=== PATIENT | female | born 1975 | race Hispanic/Latino ===

== ENCOUNTER 2019-05-10 15:00 | Outpatient (RCR) | payer MEDICARE, MEDICAID, SELFPAY ==
[2019-05-10 15:07] VITALS: BMI 24.0
[2019-05-10 15:10] VITALS: BMI 24.0
== END 2019-07-26 23:59 | disposition home or self-care (01) ==
LOC: ANHDMC 15:00
PROVIDERS: PCP Internal Medicine; Visit Provider Internal Medicine
DX: E11.9 Type 2 diabetes mellitus without complications (principal); Z71.89 Other specified counseling; Z71.3 Dietary counseling and surveillance
CPT/HCPCS: 97802; G0108; G0109

== ENCOUNTER 2019-06-27 14:00 | Outpatient (RCR) | payer MEDICAID, SELFPAY | END 2019-06-27 23:59 | disposition home or self-care (01) | LOC: ANHAUDIO 14:00 | PROVIDERS: PCP Internal Medicine; Visit Provider Internal Medicine | DX: Z46.1 Encounter for fitting and adjustment of hearing aid (principal) | CPT/HCPCS: 99199; V5160; V5261 ==

== ENCOUNTER 2019-08-01 08:18 | Outpatient (CLI) | payer MEDICARE, SELFPAY ==
--- NOTE | ~2019-08-01 | XR_ITS ---
EXAMINATION: XR_ENEMABAC_CR DATE: 08/01/2019 09:26 INDICATION: Incomplete colonoscopy TECHNIQUE: A fundraising officer radiograph was obtained. A catheter was inserted into the patient's rectum. Contra st was infused by gravity. Gas was infused by hand pump. Fluoroscopic spot images and conventional ra diographs were obtained. A total of 54 fluoroscopic images and 14 overhead radiographs were obtained. Fluoroscopy exposure time was 1.8 minutes. COMPARISON: CT dated 05/11/2019 FINDINGS: Web Developer image demonstrates tubal ligation clips in the left and right hemipelvis. Contrast opacifies th e entire colon to the cecum with at least partial filling of the appendix. There is a small diverticu lum along the cephalad margin of the proximal transverse colon. There are a few mobile filling defect s which could represent residual stool in the colon. The 2 largest are seen most frequently adjacent to the diverticulum along the proximal transverse colon and in the proximal descending colon. No fill ing defects are seen at these locations on a few of the images and on all perspectives the filling de fects project within the normal peripheral opacified mucosal contours. Relation with prior CT perform ed 05/11/2019 demonstrate no evident nodules or masses at these locations. No defects along the mucos al contour to suggest an attached polyp or mass. IMPRESSION: 1. A few small filling defects in the transverse and proximal descending colon which appear mobile an d not attached to the colon wall suggesting small amount of retained stool. No fixed/attached filling defects appreciated. Reviewed, dictated and finalized at location A. RITY CONTROL ASSESSOR IMPRESSION: 1. A few small filling defects in the transverse and proximal descending colon which appear mobile and not attached to the colon wall suggesting small amount of retained stool. No fixed/attached filling defects appreciated.
== END 2019-08-01 08:19 | disposition home or self-care (01) ==
PROVIDERS: PCP Internal Medicine; Visit Provider Internal Medicine Gastroenterology
DX: R13.10 Dysphagia, unspecified (principal); R93.89 Abnormal findings on diagnostic imaging of other specified body structures
CPT/HCPCS: 74280

== ENCOUNTER 2020-01-03 06:33 | Outpatient (CLI) | payer MEDICARE, MEDICAID, SELFPAY ==
[2020-01-03 07:46] LABS: Alanine Aminotransferase 133 U/L (4-35); Albumin Level 4.2 g/dL (3.5-5.1); Alkaline Phosphatase 160 U/L (38-126); Aspartate Amino Transferase 92 U/L (14-36); Bilirubin,Total 0.8 mg/dL (0.2-1.3); Blood Urea Nitrogen 16 mg/dL (7-17); Calcium 8.9 mg/dL (8.4-10.2); Carbon Dioxide 24 mmol/L (22-30); Chloride 104 mmol/L (98-107); Estimated Glomerular Filt Rate > 60; Glucose 327 mg/dL (65-105); Potassium 4.5 mmol/L (3.4-5.0); Sodium 136 mmol/L (137-145)
[2020-01-03 07:52] LABS: Hemoglobin A1C 11.2 % (<5.7)
== END 2020-01-03 06:34 | disposition home or self-care (01) ==
PROVIDERS: PCP Internal Medicine; Visit Provider Nurse Practitioner
DX: E11.9 Type 2 diabetes mellitus without complications (principal); R74.0 Nonspecific elevation of levels of transaminase and lactic acid dehydrogenase [LDH]
CPT/HCPCS: 36415; 80053; 83036

== ENCOUNTER 2020-03-27 11:00 | Outpatient (RCR) | payer MEDICARE, MEDICAID, SELFPAY ==
[2020-03-08 08:01] VITALS: BMI 34.3
== END 2020-05-31 12:47 | disposition home or self-care (01) ==
LOC: ANHDMC 11:00
PROVIDERS: PCP Internal Medicine; Visit Provider Internal Medicine
DX: E11.65 Type 2 diabetes mellitus with hyperglycemia (principal); Z71.3 Dietary counseling and surveillance; Z71.89 Other specified counseling
CPT/HCPCS: 97802; G0108

== ENCOUNTER 2020-03-28 06:41 | Outpatient (CLI) | payer MEDICARE, MEDICAID, SELFPAY ==
[2020-03-28 08:27] LABS: Alanine Aminotransferase 179 U/L (4-35); Albumin Level 4.3 g/dL (3.5-5.1); Alkaline Phosphatase 88 U/L (38-126); Anion Gap 10 mmol/L (8-16); Aspartate Amino Transferase 110 U/L (14-36); Bilirubin,Total 0.8 mg/dL (0.2-1.3); Blood Urea Nitrogen 11 mg/dL (7-17); Carbon Dioxide 24 mmol/L (22-30); Chloride 105 mmol/L (98-107); Estimated Glomerular Filt Rate > 60; Glucose 162 mg/dL (65-105); Potassium 4.5 mmol/L (3.4-5.0); Sodium 139 mmol/L (137-145)
[2020-03-28 08:36] LABS: Hemoglobin A1C 7.7 % (<5.7)
== END 2020-03-28 06:42 | disposition home or self-care (01) ==
PROVIDERS: PCP Internal Medicine; Visit Provider Clinical Nurse Specialist
DX: R74.8 Abnormal levels of other serum enzymes (principal); E11.9 Type 2 diabetes mellitus without complications
CPT/HCPCS: 36415; 80053; 83036

== ENCOUNTER 2020-04-02 06:44 | Outpatient (CLI) | payer MEDICARE, MEDICAID, SELFPAY ==
[2020-04-02 07:57] LABS: Iron 95 ug/dL (37-170)
[2020-04-02 08:47] LABS: Hepatitis C Virus Antibody Negative (Negative)
[2020-04-06 21:24] LABS: Gliadin AB, IgG 4 Units (<20); Reticulin IgA Negative (Negative); TTG IGA AB 1 U/mL (<4)
== END 2020-04-02 06:45 | disposition home or self-care (01) ==
PROVIDERS: PCP Internal Medicine; Visit Provider Nurse Practitioner
DX: R74.8 Abnormal levels of other serum enzymes (principal)
CPT/HCPCS: 36415; 83516; 83540; 86255; 86803

== ENCOUNTER 2020-04-10 07:16 | Outpatient (CLI) | payer MEDICARE, MEDICAID, SELFPAY ==
--- NOTE | ~2020-04-10 | US_ITS ---
EXAMINATION: US right upper quadrant DATE: 04/10/2020 08:13 INDICATION: Right upper quadrant pain TECHNIQUE: Multiple grayscale and Doppler ultrasound images of the abdomen were obtained. COMPARISON: 10/09/2008; CT, 05/11/2019 FINDINGS: The head and and body of the pancreas are normal. The pancreatic tail is obscured by bowel gas. The liver demonstrates increased echogenicity, heterogenous echotexture, and decreased through t ransmission. No surface nodularity. Normal hepatopetal flow in the main portal vein. The gallbladder is normal with no abnormal wall thickening, pericholecystic fluid or stones. The normal common bile d uct measures 5 mm. There was no sonographic Maldonado sign. IMPRESSION: 1. Diffuse hepatic steatosis. Reviewed, dictated and finalized at location A.
== END 2020-04-10 07:17 | disposition home or self-care (01) ==
PROVIDERS: PCP Internal Medicine; Visit Provider Nurse Practitioner
DX: K76.0 Fatty (change of) liver, not elsewhere classified (principal)
CPT/HCPCS: 76705

== ENCOUNTER 2022-04-09 08:04 | Outpatient (RCR) | payer MEDICARE, MEDICAID, SELFPAY ==
[2022-04-09 08:30] VITALS: BP_SYST 60
--- NOTE | 2022-04-09 09:44 | PTOPEVAL1 ---
Assessment and note entered by David Mora, PT Evaluation Information Assessment Status Evaluation Diagnosis R shoulder pain Onset 2 1/2 months Subjective Information Patient reports that she woke up with the pain, upon questioning patient reports the day before the pain started she went on a 4 mile walk with daughter and granddaughter and during that time daughter and patient would swing the granddaughter using their arms. Reported Pain Level Pain Score 5: Self Report Assessment PT Clinical Summary Ainsley is a 46 year old female coming into the clinic with R shoulder pain, she reports it started 2 1/2 months ago, but does not recall a traumatic event. She just woke up and it was in pain. She later admitted that she walked 4 miles with daughter and granddaughter with time walking spent swing the granddaughter with daughter the day prior to pain starting. Patient has moderate pain easily exacerbated with special tests, range of motion or strength testing. Positive apprehension test, decreased range of motion, and strength. Unable to put on a bra and trouble putting on shirts. Patient guards and supports the R shoulder when not in use. Physical therapy may help patient with pain through modalities and manual therapy. Education on exercises should help improve strength and range of motion which would improve patient's ADL's abilities. Plan of Care Interventions Electrical Stimulation,Hot Pack/Cold Pack,Manual Therapy,Neuro Re-education,Patient/Caregiver Education,Therapeutic Activities,Therapeutic Exercise,Self-Care/Home Management,Ultrasound PT Services Indicated Yes Treatment Frequency and 1x/wk for 4 weeks Duration These treatments will address the objective and functional deficits as defined above. The patient will be advanced safely and appropriately in order for the patient to progress towards his/her prior level of function. Additional exercises will be introduced and as well as a comprehensive home exercise program upon discharge, if needed, ?to ensure carryover of functional gains achieved in the clinic. This treatment plan has been reviewed and agreement upon by the patient.
--- NOTE | 2022-04-15 08:36 | PCPTNOTE ---
Addendum entered by Dav Nunez, PT, DPT 04/15/22 08:37: Called and left voicemail to remind her of her upcoming appointment on 04/21/22 at 9:30am. Original Note: Patient did not show up for scheduled appointment this date.
--- NOTE | 2022-04-21 09:50 | PCPTNOTE ---
Patient did not show up for scheduled appointment this date. Called and left a voicemail.
--- NOTE | 2022-04-29 10:59 | PCPTNOTE ---
Admitting Provider: Attending Provider: Jacquelyn Syed NP Patient:Ainsley Waddell Date of :1975 Patient has not returned for any further treatments since 04/09/2022, therefore (he/she) will be discharged at this time. Patient?s initial visit was on 04/09/2022 08:30 and (he/she) had a total of ___1 visits. Called patient and she reports after talking to physical therapist and MD it was recommended to hold off on physical therapy until imaging could be done on her shoulder secondary to possible labral tear. The goals have been not met. Thank you for referring this patient to [facility]. Please review, sign, date and return this discharge summary JEAN-PAUL. I have been updated about the patient's current status and I agree with discharge from the above service at this time. Referring Physician Date
== END 2022-06-26 09:41 | disposition home or self-care (01) ==
LOC: ANHPT 08:04
PROVIDERS: PCP Internal Medicine; Visit Provider Nurse Practitioner
DX: M25.511 Pain in right shoulder (principal)
CPT/HCPCS: 97110; 97161; 99199

== ENCOUNTER 2023-04-25 15:32 | Emergency (ER) | payer MEDICARE, MEDICAID, SELFPAY ==
[2023-04-25] VITALS (12 sets, daily range): BP systolic 116–149; BP diastolic 75–84; PULSE 75–89; RESP 12–21; TEMP 36.3; O2SAT 95–100
--- NOTE | 2023-04-25 16:06 | ED.GENADULT ---
HPI - General Adult General Chief complaint: Unspecified Stated complaint: cant walk/ arm pain Time Seen by Provider: 04/25/23 15:59 History of Present Illness HPI narrative: Patient is a 47-year-old female who presents to the emergency department this afternoon complaining of bilateral upper and lower extremity neuropathy. Patient admits that she does have a history of diabetes and is currently on gabapentin 300 mg 3 times a day due to her peripheral neuropathy. Patient states that she is been on this medicine for the past 10 years and although initially it helped, it no longer helps with her pain. Patient states that she is scheduled for nerve testing but that is not for a few more weeks as that was the soonest her PCP could schedule her. Patient states that she has been taking her gabapentin and naproxen at home with no relief and is currently in tears due to her nerve pain. She is frustrated and states that she has tried everything with no relief and states that the pain has now caused her some chronic debility and she is unable to perform her activities of daily living. Patient denies any chest pain, shortness of breath, nausea, vomiting, abdominal pain, dysuria, hematuria, constipation, diarrhea, melena, hematochezia, fevers or chills. She also denies any headaches, dizziness, lightheadedness, blurry visions, focal weakness, numbness and or tingling. There are no other modifying, alleviating, or precipitating factors at this time. Related Data Home Medications Medication Instructions Recorded Confirmed lancets (Microlet Lancet) #50 ea 05/11/19 12/24/22 montelukast 10 mg tablet 10 mg PO DAILY 03/26/22 12/24/22 Allergies Allergy/AdvReac Type Severity Reaction Status Date / Time No Known Allergies Allergy Unknown Verified 04/25/23 15:55 Review of Systems Review of Systems: All systems are reviewed and are negative unless stated otherwise in the HPI. [facility] Past Medical History Medical History Abnormal mammogram Excessive daytime sleepiness Heartburn Hepatic steatosis HTN (hypertension) Leukocytosis Migraine headache Mixed hyperlipidemia Neuropathy Obesity COLETTE (obstructive sleep apnea) Rheumatoid arthritis Type 2 diabetes mellitus without complication, with group home current use of insulin pump Surgical History Surgical History History of tonsillectomy and adenoidectomy Family History Family History Mother Diabetes mellitus Social History Social History Smoking status: Current every day smoker Tobacco type: cigarettes Additional smoking assessment comments: stopped 05/2022, started again then stopped, smoke free 3 months 12/24/22 Alcohol intake: current Alcohol use details: occasionally Substance use: never Lack of Transportation: No Lack of Food: Never True Current Housing: I Have Housing Concerned About Future Housing: No Difficulty Paying Gas/Electric Bills: No Difficulty Paying for Meds: No Currently Unemployed: Decline to Answer Education: Decline to Answer Difficulty w/ Childcare or Family Care: No Spiritual care concerns: No Exam Narrative: General: Alert, awake, afebrile, in no acute distress. HEENT: PERRL, no rhinorrhea, no post nasal drip, oropharynx clear. Neck: Trachea midline, no JVD, no lymphadenopathy. Cardiovascular: Regular rate and rhythm, no murmurs, rubs or gallops, no peripheral edema. Respiratory: Clear to auscultation bilaterally, no tachypnea, no wheezing, no rhonchi, no rubs, no respiratory distress. Abdomen: Soft, nontender, nondistended, no rebound, no guarding, no peritoneal signs. Musculoskeletal: No joint swelling or deformity, normal muscle tone. Skin: No rashes or petechia, no signs of infection. Psychiatric: Alert an
[2023-04-25 16:20] LABS: Basophils Percent Auto 0.3 % (0.2-1.2); Eosinophils Absolute Auto 0.5 K/mm3 (0-0.3); Eosinophils Percent Auto 5.8 % (0-4.4); Hematocrit 38.8 % (37.0-47.0); Immature Granulocyte Absolute 0.02 K/mm3 (0.00-0.031); Immature Granulocyte Percent A 0.2 % (0-0.5); Mean Corpuscular HGB Conc 33.5 g/dl (32-36); Mean Corpuscular Hemoglobin 31.5 pg (26-34); Mean Corpuscular Volume 93.9 fl (80-100); Mean Platelet Volume 9.6 fl (7.4-10.4); Monocytes Absolute Auto 0.7 K/mm3 (0.1-0.6); Monocytes Percent Auto 7.9 % (2.6-8.5); Neutrophils Absolute Auto 4.2 K/mm3 (1.3-6.7); Neutrophils Percent Auto 48.8 % (45.5-73.1); Platelet Count Result 203 k/mm3 (150-375); Red Blood Count 4.13 M/mm3 (4.2-5.4); Red Cell Distribution Width 12.7 % (11.5-14.5); White Blood Count 8.7 K/mm3 (4.5-10.0)
[2023-04-25 16:29] LABS: Alanine Aminotransferase 39 U/L (6-35); Alkaline Phosphatase 131 U/L (38-126); Anion Gap 5 mmol/L (8-16); Aspartate Amino Transferase 32 U/L (14-36); Bilirubin,Total 0.6 mg/dL (0.2-1.3); Blood Urea Nitrogen 13 mg/dL (7-17); Calcium 8.8 mg/dL (8.4-10.2); Carbon Dioxide 24 mmol/L (22-30); Chloride 105 mmol/L (98-107); Estimated CRCL calculation 106 ml/min; Estimated Glomerular Filt Rate > 60; Glucose 292 mg/dL (65-110); Potassium 4.1 mmol/L (3.4-5.0); Sodium 134 mmol/L (137-145)
[2023-04-25] MEDS: HYDROcodone/acetaminophen (*CRX) 5-325 MG TABLET 1 TAB PO (17:07)
== END 2023-04-25 17:18 | disposition home or self-care (01) ==
PROVIDERS: Emergency Provider Emergency Medicine; PCP Internal Medicine
DX: E11.42 Type 2 diabetes mellitus with diabetic polyneuropathy (principal); E78.2 Mixed hyperlipidemia; I10 Essential (primary) hypertension; G47.33 Obstructive sleep apnea (adult) (pediatric); M06.9 Rheumatoid arthritis, unspecified; E66.9 Obesity, unspecified; Z68.32 Body mass index [BMI] 32.0-32.9, adult; R12 Heartburn; Z87.891 Personal history of nicotine dependence; Z79.85 Long-term (current) use of injectable non-insulin antidiabetic drugs; Z79.4 Long term (current) use of insulin
CPT/HCPCS: 36415; 80053; 85025; 99284; A9270

== ENCOUNTER 2023-05-04 11:38 | Outpatient (CLI) | payer MEDICARE, MEDICAID, SELFPAY ==
[2023-05-04 17:19] LABS: Basophils Percent Auto 0.3 % (0.2-1.2); Eosinophils Absolute Auto 0.4 K/mm3 (0-0.3); Eosinophils Percent Auto 4.1 % (0-4.4); Hematocrit 41.4 % (37.0-47.0); Hemoglobin 13.9 g/dL (12.0-15.0); Immature Granulocyte Absolute 0.02 K/mm3 (0.00-0.031); Immature Granulocyte Percent A 0.2 % (0-0.5); Lymphocytes Absolute Auto 3.42 K/mm3 (0.9-3.2); Lymphocytes Percent Auto 33.3 % (18.3-44.2); Mean Corpuscular HGB Conc 33.6 g/dl (32-36); Mean Corpuscular Hemoglobin 31.6 pg (26-34); Mean Corpuscular Volume 94.1 fl (80-100); Monocytes Absolute Auto 0.6 K/mm3 (0.1-0.6); Neutrophils Absolute Auto 5.8 K/mm3 (1.3-6.7); Neutrophils Percent Auto 56.1 % (45.5-73.1); Platelet Count Result 230 k/mm3 (150-375); Red Cell Distribution Width 12.2 % (11.5-14.5); White Blood Count 10.3 K/mm3 (4.5-10.0)
[2023-05-04 18:22] LABS: Erythrocyte Sedimentation Rate 21 mm/hr (0-20)
[2023-05-04 18:37] LABS: Alanine Aminotransferase 62 U/L (6-35); Albumin Level 4.4 g/dL (3.5-5.1); Alkaline Phosphatase 135 U/L (38-126); Anion Gap 13 mmol/L (8-16); Aspartate Amino Transferase 56 U/L (14-36); Bilirubin,Total 0.7 mg/dL (0.2-1.3); Blood Urea Nitrogen 14 mg/dL (7-17); Calcium 9.3 mg/dL (8.4-10.2); Carbon Dioxide 23 mmol/L (22-30); Chloride 103 mmol/L (98-107); Estimated Glomerular Filt Rate > 60; Glucose 167 mg/dL (65-110); Potassium 3.9 mmol/L (3.4-5.0); Sodium 139 mmol/L (137-145)
[2023-05-04 18:46] LABS: Rheumatoid Factor > 120.0 IU/ML (<12)
[2023-05-04 19:40] LABS: Folic Acid 4.7 ng/mL (2.76->20)
[2023-05-06 21:03] LABS: ANA Cascade Screen Negative (Negative)
== END 2023-05-04 11:39 | disposition home or self-care (01) ==
LOC: ANHGOSHLAB 11:41
PROVIDERS: PCP Internal Medicine; Visit Provider Nurse Practitioner
DX: G62.9 Polyneuropathy, unspecified (principal); E11.9 Type 2 diabetes mellitus without complications; M25.50 Pain in unspecified joint; Z96.41 Presence of insulin pump (external) (internal)
CPT/HCPCS: 36415; 80053; 82607; 82746; 84443; 85025; 85652; 86038; 86225; 86235; 86364; 86430

== ENCOUNTER 2023-10-08 07:45 | Outpatient (CLI) | payer MEDICARE, MEDICAID, SELFPAY ==
--- NOTE | 2023-10-08 08:06 | ECG_ITS ---
SEE SCANNED COPY FOR CONFIRMED REPORT MTDD
[2023-10-08 08:59] LABS: Anion Gap 10 mmol/L (4-12); Blood Urea Nitrogen 17 mg/dL (7-17); Calcium 9.6 mg/dL (8.4-10.2); Carbon Dioxide 21 mmol/L (22-30); Chloride 101 mmol/L (98-107); Estimated Glomerular Filt Rate > 60; Glucose 512 mg/dL (65-110); Potassium 4.4 mmol/L (3.4-5.0); Sodium 132 mmol/L (137-145)
== END 2023-10-08 07:46 | disposition home or self-care (01) ==
PROVIDERS: Anesthesiology; PCP Internal Medicine; Visit Provider Plastic Surgery
DX: E11.69 Type 2 diabetes mellitus with other specified complication (principal); E78.5 Hyperlipidemia, unspecified; Z96.41 Presence of insulin pump (external) (internal)
CPT/HCPCS: 36415; 80048; 93005

== ENCOUNTER 2023-10-09 09:20 | Outpatient (CLI) | payer MEDICARE, MEDICAID, SELFPAY ==
[2023-10-09 10:15] LABS: Glucose 166 mg/dL (65-110); Hemoglobin A1C 9.7 % (<5.7)
== END 2023-10-09 09:21 | disposition home or self-care (01) ==
PROVIDERS: PCP Internal Medicine; Visit Provider Physician Assistant Surgical
DX: E11.9 Type 2 diabetes mellitus without complications (principal); N62 Hypertrophy of breast; Z96.41 Presence of insulin pump (external) (internal)
CPT/HCPCS: 36415; 82947; 83036

== ENCOUNTER 2024-02-10 06:42 | Outpatient (CLI) | payer MEDICARE, MEDICAID, SELFPAY ==
[2024-02-10 07:52] LABS: Anion Gap 10 mmol/L (4-12); Blood Urea Nitrogen 14 mg/dL (7-17); Calcium 9.2 mg/dL (8.4-10.2); Carbon Dioxide 25 mmol/L (22-30); Chloride 102 mmol/L (98-107); Estimated Glomerular Filt Rate > 60; Glucose 135 mg/dL (65-110); Sodium 137 mmol/L (137-145)
== END 2024-02-10 06:43 | disposition home or self-care (01) ==
LOC: ANHLAB 06:44
PROVIDERS: PCP Internal Medicine; Visit Provider Anesthesiology
DX: E11.9 Type 2 diabetes mellitus without complications (principal); Z96.41 Presence of insulin pump (external) (internal)
CPT/HCPCS: 36415; 80048

== ENCOUNTER 2024-02-17 01:52 | Day surgery (SDC) | payer MEDICARE, MEDICAID, SELFPAY ==
[2023-10-06 12:07] VITALS: BMI 31.8
--- NOTE | 2023-10-06 12:15 | PC.NURSE ---
Addendum entered by Mary Blackwood RN 10/07/23 10:27: ALTERED PT COPY OF PREOP INSTRUCTIONS NOTIFYING THAT DEXCOM AND INSULIN PUMP SHOULD REMAIN IN PLACE. Addendum entered by Florinda Linton RN 10/06/23 12:21: PT INSTRUCTED SHE WILL BE REQUIRED TO REMOVE HER DEXCOM AND INSULIN PUMP THE MORNING OF SURGERY Original Note: Report to the Outpatient Waiting Room, entrance under the green pavilion located off [facility], at time _0600_ on date 10/15/23_. Planned Procedure Time: __0730_. Time changes happen often and if your time is changed the preop area will call you the afternoon before. - You and your visitor will be asked to self-screen and do not enter if you have any COVID symptoms. - A mask is optional within the hospital at this time. Patients may have clear liquids (water, carbonated beverages, clear teas, apple juice) until 8 hours prior to surgery with a maximum of 20 ounces. - No food from 1130PM until time of surgery - Infants may have breast milk until 4 hours before surgery, formula 6 hours prior to surgery. - Children will be allowed to drink immediately following surgery. If applicable, please bring a bottle or sippy cup to assist with drinking. Juice, water, soda, and popsicles are readily available. For infants on formula, please bring formula the day of surgery. Pacifiers are allowed. Take the following medications with a SIP of water the morning of surgery: ____CITALOPRAM/ PREGABALIN DO NOT STOP ANY OF YOUR OTHER PRESCRIPTION MEDICATIONS PRIOR TO SURGERY ?EXCEPT THE FOLLOWING Medications to discontinue per physician NONE Date to take last dose Please no make-up, nail armenian, hairspray, perfume, deodorant, or body powder the day of surgery. No jewelry (including any body piercings) or valuables the day of surgery, leave them at home. Please take a shower or bath the night before, or the morning of, surgery with an antibacterial soap. Wear comfortable, loose fitting clothing. Children are encouraged to wear pajamas. - Jewelry must be removed prior to entering the operating room. Rings and piercings that are not removed may be cut off. - The hospital will not accept responsibility for valuables. - Please leave all valuables, including medications, at home the day of surgery. If you are going home after surgery, a licensed concrete pile driver operator must drive you home. - NO public transportation without another adult if you receive anesthesia. - We recommend that an adult stay with you for 24 hours following discharge. - We also recommend that you do not drive, make important decision, drink alcoholic beverages, or take any drugs that were not prescribed by your health care provider for at least 24 hours after your discharge time. For Pediatric surgeries, we recommend two adults accompany the child home. Follow any additional instructions given to you from your surgeon. If you or anyone in your household have experienced Covid symptoms in the past week, please notify your surgeon or the nurse liaison at the phone number below for possible testing. Telephone instructions given to ___PATIENT__and asked if any additional questions and then verbalized understanding. Patient advised to call surgeon office or pre surgery nurse liaison [phone] if any additional questions.
[2024-02-09 10:23] VITALS: BMI 32.0
--- NOTE | 2024-02-09 10:31 | PC.NURSE ---
Addendum entered by Florinda Linton RN 02/09/24 10:43: PT INFORMED TO BE NPO FOR 8 HOURS PRIOR TO SURGERY Original Note: Report to the Outpatient Waiting Room, entrance under the [place] pavilion located off [facility], at time 0615_ on date 02/15/24. Planned Procedure Time: _08_. Time changes happen often and if your time is changed the preop area will call you the afternoon before. - You and your visitor will be asked to self-screen and do not enter if you have any COVID symptoms. - A mask is optional within the hospital at this time. Patients may have clear liquids (water, carbonated beverages, clear teas, apple juice) until 3 hours prior to surgery with a maximum of 20 ounces. - No food from midnight until time of surgery - Infants may have breast milk until 4 hours before surgery, formula 6 hours prior to surgery. - Children will be allowed to drink immediately following surgery. If applicable, please bring a bottle or sippy cup to assist with drinking. Juice, water, soda, and popsicles are readily available. For infants on formula, please bring formula the day of surgery. Pacifiers are allowed. Take the following medications with a SIP of water the morning of surgery: NONE DO NOT STOP ANY OF YOUR OTHER PRESCRIPTION MEDICATIONS PRIOR TO SURGERY ?EXCEPT THE FOLLOWING Medications to discontinue per physician PT HAS STOPPED HUMERIA /OZEMPIC DIRECTED BY . Date to take last dose Please no make-up, nail micronesian, hairspray, perfume, deodorant, or body powder the day of surgery. No jewelry (including any body piercings) or valuables the day of surgery, leave them at home. Please take a shower or bath the night before, or the morning of, surgery with an antibacterial soap. Wear comfortable, loose fitting clothing. Children are encouraged to wear pajamas. - Jewelry must be removed prior to entering the operating room. Rings and piercings that are not removed may be cut off. - The hospital will not accept responsibility for valuables. - Please leave all valuables, including medications, at home the day of surgery. If you are going home after surgery, a licensed oil transport driver must drive you home. - NO public transportation without another adult if you receive anesthesia. - We recommend that an adult stay with you for 24 hours following discharge. - We also recommend that you do not drive, make important decision, drink alcoholic beverages, or take any drugs that were not prescribed by your health care provider for at least 24 hours after your discharge time. For Pediatric surgeries, we recommend two adults accompany the child home. Follow any additional instructions given to you from your surgeon. If you or anyone in your household have experienced Covid symptoms in the past week, please notify your surgeon or the nurse liaison at the phone number below for possible testing. Telephone instructions given to and asked if any additional questions and then verbalized understanding. Patient advised to call surgeon office or pre surgery nurse liaison [phone] if any additional questions.
[2024-02-17] VITALS (8 sets, daily range): BP systolic 130–166; BP diastolic 55–99; PULSE 82–102; RESP 12–16; TEMP 36.7; O2SAT 95–98
[2024-02-17] MEDS: LACTATED RINGERS 1,000 ML 30 ML IV CONT ×2 (06:40→10:27)
--- NOTE | 2024-02-17 06:48 | P.HPUP_ITS ---
History and Physical Update Update Date/Time: 02/17/24 06:48 Patient seen and examined in pre-operative holding area. No interval change in medical history or symptoms. Patient remembers previous discussion of benefits and alternatives to procedure. Continues to desire to proceed with bilateral breast reduction. I reviewed the risks including but not limited to bleeding ,infection, asymmetry, undesireable cosmetic appearance, partial/total skin/nipple loss, no change or worsening of symptoms, change in sensation. I discussed the possible use of assistants and their level of participation in the case. Patient stated understanding and signed the consent form wishing to pr oceed
--- NOTE | 2024-02-17 06:49 | W.PM.PROC2 ---
Procedure Note - Detailed Date of Procedure 02/17/24 Pre-op Diagnosis hypertrophy of breasts Post-op Diagnosis Same Procedure Performed breast reduction Surgeon Mamadou Moffett MD Occupational Health Nurse abdirashid leigh pa-c Anesthesia General Description of Procedure Patient was seen in the preoperative holding area where the consent form was signed and breast were marked for inferior pedicle Barr pattern reduction. She was taken back to the operating room and placed on the table in the supine position. Time-out was performed with Anesthesia, surgeon, and staff agreeing on patient's name, site, and surgery to be performed. SCDs were placed the lower extremities and inflated. Antibiotics were given IV. After general anesthesia was administered the breasts were prepped and draped in the usual sterile fashion. I took my attention 1st to the right breast where I used a saline moistened lap pad and Jr clamp to create a breast tourniquet. 38 mm nipple Sizer was used to circumscribe the nipple-areolar complex and I proceeded with de epithelializing a 7 cm wide inferior pedicle. I made my other skin incisions and used Bovie cautery to elevate skin flaps and Crow's plane down to the chest wall exposing the entire breast. I proceeded with resection of 461 g of tissue from the right breast. I irrigated with normal saline. Hemostasis was good with Bovie cautery. I plicated the pedicle with 2-0 Vicryl suture. 2-0 Prolene was used to secure the T-junction. 3-0 Vicryl was used for dermal closure. The nipple was brought out 5 cm above the inframammary fold the most prominent portion of the breast at the breast midline and secured with 3-0 Vicryl suture. 4-0 Monocryl was used for subcuticular closure. I now took my attention to the left breast where a similar procedure was performed using the breast tourniquet 38 mm nipple Sizer and de epithelializing a 7 cm wide inferior pedicle. I made my other skin incisions and used Bovie cautery to elevate skin flaps and Crow's plane down to the chest wall. I proceeded with resecting 540 g of tissue from the left breast. This appeared to be reasonably symmetric to the reduced right side. Irrigated with normal saline. Hemostasis with Bovie cautery. I plicated the pedicle with 2-0 Vicryl suture. 2-0 Prolene was used to secure the T-junction. 3-0 Vicryl was used for dermis again the nipple was brought out 5 cm above the inframammary fold at the most prominent portion of breast at the breast midline and secured with 3-0 Vicryl suture. 4-0 Monocryl was used for subcuticular closure. There was good size, shape, and symmetry to the breast. The nipples appeared viable with good cap refill. The skin flaps appeared viable with good cap refill. I injected 20 cc of 1% lidocaine with epinephrine and 0.5% Marcaine plain along the inframammary fold and anterior axillary line of each breast. A dressing of Mastisol, Steri-Strips, 4x4s, ABDs and a breast binder was then applied. The patient was then awakened from anesthesia and transferred to the recovery room in stable condition. Complications: None Estimated blood loss: 30 cc Disposition: Patient tolerated the procedure well and will be going home later today. Abdirashid Leigh PA-C was essential for positioning, retraction, resection, closure and dressing placement [facility] [place] - Charge Forward: Surgery Billing ([id number] same for abdirashid leigh )
--- NOTE | 2024-02-17 08:07 | WPDANESEPPF ---
Anes - Initial Pre Proc Eval Procedure: Operation Date: 10/15/23 07:30 Proposed Procedures p Bilateral Breast Reduction - Mamadou Moffett MD Operation Date: 02/17/24 08:15 Proposed Procedures p Bilateral Breast Reduction - Mamadou Moffett MD Date/Time: 02/17/24 08:07 Surgeon: Mamadou Moffett MD Pre Op Diagnosis: hypertrophy of breasts Patient Data Age: 48 Gender: F Height: 1.68 m Weight: 92 kg Allergies Allergy/AdvReac Type Severity Reaction Status Date / Time No Known Allergies Allergy Unknown Verified 02/17/24 06:15 Home Medications Medication Instructions Recorded Confirmed Type lancets (Microlet Lancet) #50 ea 05/11/19 02/17/24 History lancets 33 gauge (TRUEplus Lancets) #100 ea 01/09/20 02/17/24 Rx semaglutide 1 mg/dose (2 mg/1.5 1 mg (0.75 mL) subcut WEEKLY #3 mL 04/02/20 02/17/24 Rx mL) subcutaneous pen injector (Ozempic) insulin aspart U-100 100 unit/mL See Rx Instructions continuous 06/04/20 02/17/24 Rx subcutaneous solution (Novolog subcutaneous infusion DAILY #20 mL U-100 Insulin aspart) montelukast 10 mg tablet 10 mg PO DAILY 03/26/22 02/17/24 History pregabalin 150 mg capsule (Lyrica) 150 mg PO BID #180 caps 09/22/23 02/17/24 Rx losartan 25 mg tablet 25 mg PO DAILY #90 tabs 10/15/23 02/17/24 Rx atorvastatin 80 mg tablet 80 mg PO DAILY #30 tabs 01/04/24 02/17/24 Rx adalimumab 40 mg/0.8 mL 40 mg subcut WEEKLY 02/02/24 02/17/24 History subcutaneous pen kit (Humira Pen) citalopram 20 mg tablet 20 mg PO DAILY #30 tabs 02/10/24 02/17/24 Rx famotidine 20 mg tablet (Acid 20 mg PO DAILY #30 tabs 02/10/24 02/17/24 Rx Complex Director (famotidine)) cephalexin 500 mg capsule 500 mg PO Q8H #21 caps 02/17/24 Rx hydrocodone 5 mg-acetaminophen 325 1 tablet PO Q6H PRN pain #12 tabs 02/17/24 Rx mg tablet Patient hx anesthesia problems: none Family hx anesthesia problems: none Results Review: All pre-operative results and documents have been reviewed as part of the pre-operative evaluation. [facility] Past Medical History Medical History Abnormal mammogram Excessive daytime sleepiness Heartburn Hepatic steatosis HTN (hypertension) Leukocytosis Migraine headache Mixed hyperlipidemia Neuropathy Obesity [place]TTE (obstructive sleep apnea) Rheumatoid arthritis Type 2 diabetes mellitus without complication, with senior living current use of insulin pump Surgical History Surgical History History of tonsillectomy and adenoidectomy Family History Family History Mother Diabetes mellitus Social History Social History Social History: Caffeine-daily Smoking packs per day: 0.25 Smoking cigarettes per day: 5.0 Years smoked: 34 Smoking pack-years: 8.50 Smoking status: Former smoker Tobacco type: e-cigarettes/vaping Additional smoking assessment comments: stopped 05/2022, started again then stopped, smoke free 3 months 12/24/22 Alcohol intake: current Alcohol use details: 2 PER YEAR Substance use: never Substance use type: does not use Do You Feel Safe in your Home?: Yes Lack of Transportation: No Lack of Food: Never True Current Housing: Decline to Answer Concerned About Future Housing: No Difficulty Paying Gas/Electric Bills: No Difficulty Paying for Meds: No Currently Unemployed: Decline to Answer Education: Master's Degree or Higher Difficulty w/ Childcare or Family Care: No Living arrangements: with family Spiritual care concerns: No Anes - Eval Final PreProcedure Day of Procedure 02/17/24 08:07 Patient weight: obese Heart: regular rate and rhythm Lungs: clear to auscultation Airway: Mallampati scale class II Neurological: alert and oriented Last oral intake: >/= 8 hours
[2024-02-17] MEDS: ceFAZolin 2 GM/D5W 50 ML 2 GM/50 ML BAG IVPB (08:25)
[2024-02-17] MEDS: LIDO 1%/EPINEPHRINE 1:100,000 20 ML VIAL 15 ML INFILTRATE (09:13)
[2024-02-17] MEDS: BUPivacaine HCL 0.5% PF 30 ML VIAL 15 ML INFILTRATE (09:13)
[2024-02-17 10:50] LABS: Glucose Point of Care 170 mg/dl (65-105)
[2024-02-17] MEDS: fentaNYL CITRATE INJ (*CRX) 100 MCG/2 ML VIAL 25 MCG IV PUSH ×4 (10:55→11:09)
[2024-02-17] MEDS: ONDANSETRON INJ 4 MG/2 ML VIAL IV PUSH (11:08)
[2024-02-17] MEDS: diphenhydrAMINE HCl INJ 50 MG/ML VIAL 12.5 MG IV PUSH (11:32)
[2024-02-17 11:37] LABS: BEDSIDEPREGUCG Negative
[2024-02-17] MEDS: oxyCODONE HCL (*CRX) 5 MG TAB IR PO (11:56)
== END 2024-02-17 12:47 | disposition home or self-care (01) ==
PROVIDERS: Physician Assistant Surgical; PCP Internal Medicine; Visit Provider Plastic Surgery
PROC: 0HBV0ZZ Excision of Bilateral Breast, Open Approach (ICD-10-PCS; CPT 19318; principal; 2024-02-17 08:15)
DX: N62 Hypertrophy of breast (principal); N64.89 Other specified disorders of breast; I10 Essential (primary) hypertension; E78.2 Mixed hyperlipidemia; E11.40 Type 2 diabetes mellitus with diabetic neuropathy, unspecified; M06.9 Rheumatoid arthritis, unspecified; G47.33 Obstructive sleep apnea (adult) (pediatric); K76.0 Fatty (change of) liver, not elsewhere classified; Z79.85 Long-term (current) use of injectable non-insulin antidiabetic drugs; Z79.4 Long term (current) use of insulin; Z79.620 Long term (current) use of immunosuppressive biologic; Z87.891 Personal history of nicotine dependence; E66.9 Obesity, unspecified; Z68.32 Body mass index [BMI] 32.0-32.9, adult
CPT/HCPCS: 19318; 82948; 88305; A9270; J0690; J1100; J1200; J2250; J2405; J2704; J3010; J7120

== ENCOUNTER → 2024-09-21 15:12 | Outpatient (REF) | payer MEDICARE, MEDICAID, SELFPAY | LOC: ANHLAB 15:12 | PROVIDERS: PCP Nurse Practitioner; Visit Provider Plastic Surgery | DX: N62 Hypertrophy of breast (principal) | CPT/HCPCS: 88305 ==

== ENCOUNTER 2024-11-16 08:55 | Outpatient (CLI) | payer MEDICARE, MEDICAID, SELFPAY ==
--- NOTE | ~2024-11-16 | XR_ITS ---
Left wrist Technique: PA, oblique, lateral, and ulnar deviation views were obtained. Clinical History: Lesion of ulnar nerve Findings: No acute fracture or dislocation is seen. Osseous alignment is anatomic. Joint spaces are p reserved. Soft tissues are unremarkable. Impression: No acute abnormality. Reviewed, dictated and finalized at location . Impression: No acute abnormality.
--- OUTSIDE RECORDS SUMMARY | 2024-11-16 09:01 | XMS_ITS | Referral Summary ---
Author Organization [facility] Address [address] [place] [address] Care Team Providers Care Professor Of Practice Name Role Phone Devin Arredondo DO Primary Care Provider [phone] Encounters Date Type Department Care Team Description 11/04/2024 11:40 AM CDT Lab [facility] Met[facility] Lipid [address] [place] [id number] High risk medication use; Rheumatoid arthritis involving multiple sites with positive rheumatoid factor (HCC) 11/04/2024 10:45 AM CDT Office Visit [facility] [address] [place] [id number] Thu Espino MD High risk medication use (Primary Dx); Rheumatoid arthritis involving multiple sites with positive rheumatoid factor (HCC) 09/06/2024 Telephone [facility] [address] [place] [address] [place] [address] Dung Rubi RN Prior Auth (Tresiba) 08/31/2024 Telephone [facility] [address] [place] [address] [place] [address] Marlen Machado CMA 08/31/2024 Telephone [facility] [address] [place] [address] [place] [address] Ana Iraheta RMA Fibroscan Appointment 08/31/2024 Results Follow-Up [facility] [address] [place] [address] [place] [address] Jessica Perez PA Albumin Creatinine Ratio, Urine, Hepatic function panel 08/31/2024 Telephone [facility] Met[facility] Lipid [address] [place] [address] [place] [address] Jessica Perez PA Lab Results 08/30/2024 9:20 AM CDT Lab [facility] ([facility]) [address] [place] [address] Type 2 diabetes mellitus with other specified complication, with long-term current use of insulin (HCC); Nonalcoholic fatty liver disease; Elevated liver function tests 08/30/2024 8:30 AM CDT Office Visit [facility] Lipid [address] [place] [address] [place] [address] Jessica Perez PA Type 2 diabetes mellitus with other specified complication, with long-term current use of insulin (HCC) (Primary Dx); Nonalcoholic fatty liver disease; Elevated liver function tests; Class 1 obesity due to excess calories with serious comorbidity and body mass index (BMI) of 32.0 to 32.9 in adult; Mixed hyperlipidemia; Sleep apnea, unspecified type; Elevated blood pressure reading; Vitamin D deficiency; Insulin pump titration from Last 3 Months Allergies No known active allergies Medications famotidine (PEPCID) 20 mg tablet 05/10/20 20 Active glucagon 1 mg injection INJECT 1 MG UNDER THE SKIN ONCE NEEDED. MAY REPEAT IN 15 MINS IF NEEDED WITH NEW DECIVE 07/03/19 21 Active montelukast (SINGULAIR) 10 mg tablet 06/06/20 21 Active sertraline (ZOLOFT) 25 mg tablet Take 1 tablet (25 mg total) by mouth daily 12/26/19 22 Active varenicline (CHANTIX) 1 mg tablet Take 1 tablet (1 mg total) by mouth 2 (two) times a day 03/13/20 22 Active citalopram (CeleXA) 20 mg tablet Take 1 tablet (20 mg total) by mouth daily 05/27/20 22 Active atorvastatin (LIPITOR) 80 mg tablet Take 1 tablet (80 mg total) by mouth daily 06/19/20 22 Active pregabalin (LYRICA) 150 mg capsule Take 1 capsule (150 mg total) by mouth 2 (two) times a day 06/10/20 23 Active pen needle, diabetic (BD Ultra-Fine Heather Pen Needle) 32 gauge x 5/32 needleIndication s:Type 2 diabetes mellitus with other specified complication, with long-term current use of insulin ([facility]) USE TO INJECT INSULIN 3 TIMES PER DAY. 200 each 3 10/28/19 24 Active losartan (COZAAR) 25 mg tablet TAKE 1 TABLET BY MOUTH EVERY DAY. PLEASE MAKE AN APPT FOR FURTHER REFILLS 90 tablet 1 01/11/20 24 Active glucagon (Gvoke HypoPen 1-Pack) 1 mg/0.2 mL auto-injectorInd ications:Type 2 diabetes mellitus with other specified complication, with long-term current use of insulin ([facility]) Use as directed for severe hypoglycemia 2 mL 2 06/02/20 24 Active bisacodyL 5 mg tabletIndication s:Constipation, unspecified constipation type Take 10 mg by mouth daily 10 tablet 06/02/20 24 Active upadacitinib 15 mg tablet extended release 24 hr Take 15 mg by mouth daily 30 tablet 11 06/13/20 24 025 Active tirzepatide (Mounjaro) 5 mg/0.5 mL pen injector injectionIndicat ions:Type 2 diabetes mellitus with other specified complication, with long-term current use of insulin ([facility]) Inject 0.5 mL (5 mg total) under the skin every 7 days 2 mL 3 08/31/19 25 Active insulin aspart (NovoLOG) 100 unit/mL vial for injectionIndicat ions:Type 2 diabetes mellitus with other specified complication, with long-term current use of insulin ([facility]) Use in insulin pump. Max daily dose 100 units. 90 mL 3 08/31/19 25 Active insulin degludec (TRESIBA) 100 unit/mL (3 mL) pen for injectionIndicat ions:Type 2 diabetes mellitus with other specified complication, with long-term current use of insulin ([facility]) INJECT 33 UNITS ONCE DAILY IN CASE OF PUMP FAILURE 15 mL 2 09/08/19 25 Active sulfaSALAzine (AZULFIDINE) 500 mg tabletIndication s:Rheumatoid arthritis involving multiple sites with positive rheumatoid factor (HCC) Take 3 tablets (1,500 mg total) by mouth 2 (two) times a day 360 tablet 11/05/19 25 025 Active meloxicam (MOBIC) 15 mg tabletIndication s:Polyarthritis TAKE 1 TABLET BY MOUTH DAILY WITH BREAKFAST. DO NOT TAKE WITH OTHER NSAIDS, CAN TAKE TYLENOL 30 tablet 1 02/04/20 24 025 Discontin ued(Thera py completed ) sulfaSALAzine (AZULFIDINE) 500 mg tabletIndication s:Rheumatoid arthritis involving multiple sites with positive rheumatoid factor (HCC) Take 2 tablets (1,000 mg total) by mouth 2 (two) times a day 360 tablet 10/04/19 25 025 Discontin ued(Reord er) Active Problems Problem Noted Date Diagnosed Date Elevated liver function tests 08/30/2024 Eye pain 08/30/2023 High risk medication use 08/30/2023 Seropositive erosive rheumatoid arthritis 2023 Polyarthritis 05/27/2023 Elevated rheumatoid factor 05/27/2023 Chills 05/27/2023 Hidradenitis suppurativa 05/27/2023 Nonalcoholic fatty liver disease 03/03/2022 Assessment & Plan (03/03/2022 9:38 AM CDT): Pt initially had elevated LFTs in 06/2020 with hepatocellular pattern. This was was likely indicative of PETERSON component. Now with improvement in her DM and also on simaglutide - her transaminases have normalized. Liver US 03/2021 - noted increased echogenicity. Plt normal. APRI normal 0.3. We discussed the cause of increased hepatic fat, i.e., inadequate metabolism of fat delivered to the liver. When associated with elevated transaminases, this is non-alcoholic steatohepatitis. This inflammation can lead to scar tissue or cirrhosis of the liver in approximately 30% of cases. Patients with cirrhosis are at risk for developing complications of portal hypertension, liver failure, , liver cancer, and/or the need for a liver transplant. Fat in the absence of elevated transaminases is non-alcoholic fatty liver disease. Routinely, this is not associated with inflammation or progressive hepatic fibrosis. The most effective treatment of fatty liver is weight loss, ideally achieved through a combination of caloric restriction and exercise. Aerobic exercise for 4 hours a week can accelerate fat metabolism and lead to improvement of liver tests. Weight loss of 5-10% of the current body weight usually leads to improvement in liver tests, liver inflammation, and a decrease in hepatic fibrosis. - Pt agreed with above and will try to lose weight. - PCP can follow labs in future, with next set of labs can perform Hep C/B screening. - For now will follow-up with us as needed Mixed hyperlipidemia 09/30/2021 Assessment & Plan (01/27/2023 12:25 PM CDT): -Last lipid panel: Total cholesterol 170 triglycerides 336, HDL 22, LDL 81 on 01/23/2023 (confirmed with patient that this was a fasting test) -Will continue same medical management of atorvastatin 80 mg daily -Discussed importance of improving glycemic control, making dietary modifications, and increasing activity Assessment & Plan (07/28/2022 9:22 AM ARRESTING GEAR OPERATOR): -Last labs dated 12/27/21 : TC 176 Trig 266 HDL 23 LDL 100 -Will continue same medical management Class 1 obesity due to exces s calories with serious comorbidity and body mass index (BMI) of 31.0 to 31.9 in adult 09/30/2021 Assessment & Plan (03/03/2022 9:39 AM CDT): Recommended weight loss above. Pt agreed. Neuropathy 06/11/2020 Sleep apnea 06/11/2020 Type 2 diabetes mellitus 06/11/2020 Assessment & Plan (01/27/2023 12:21 PM CDT): -Currently taking Ozempic and Metformin. She has been off of her pump due to malfunction, and has been taking only a few units of Lantus with meals -A1C on 01/27/23 was 7.6% -Dexcom download indicates variable pattern. She has been off pump x 2 weeks, and was also taking steroids during that time. She has only be taking a few units of Lantus with each meal while off pump. Her previous pump download was reviewed, and her total daily basal amount was 33 units. In review of her current Dexcom data, will change latnus to 20 units once a day. Lyumjev pen given to use for mealtime coverage at ICR of 1:10, correction of 1:25>150 mg/dl. She will resume her usual pump settings with Humalog when she receives her new pump. -Discussed diet and activity modifications. -Advised to call with any concerns/complaints regarding glucose readings -Eye exam is up to date Assessment & Plan (07/30/2022 1:47 PM ARRESTING GEAR OPERATOR): -Currently taking Ozempic and Metformin, using Tandem insulin pump with Dexcom -A1C on 07/30/22 was 6.5% -Dexcom download indicates relatively stable pattern with time in range of 91%. She has occasional excursions. For now, will continue same pump settings. -Discussed diet and activity modifications. -Advised to call with any concerns/complaints regarding glucose readings -Eye exam is up to date Immunizations Immunization Administration Dates Next Due Pfizer SARS-CoV-2 Monovalent Vaccination (12+ Yrs) PURPLE 09/17/2020 ZOSTER Recombinant 07/01/2024,04/15/2024 Social History Tobacco Use Types Packs/Day Years Used Date Smoking Tobacco: Former Cigarettes 0.3 20 Tobacco Cessation:Counseling Given: Not Answered AUDIT-C Answer Date Recorded Q1: How often do you have a drink containing alc ohol? Monthly or less 03/03/2022 Q2: How many drinks containi ng alcohol do you have on a typical day when you are drinking? 1 or 2 03/03/2022 Q3: How often do you have si x or more drinks on one occasion? Less than monthly 03/03/2022 Comments No Sex and Gender Information Value Date Recorded Sex Assigned at Not on file Legal Sex Female 8:30 PM ARRESTING GEAR OPERATOR Gender Identity Not on file Sexual Orientation Not on file Last Filed Vital Signs Vital Sign Reading Time Taken Comments Blood Pressure 136/83 08/30/2024 8:19 AM CDT Pulse 83 08/30/2024 8:19 AM CDT Temperature 36.8 C (98.3 F) 08/30/2024 8:19 AM CDT Respiratory Rate 18 07/01/2024 9:02 AM ARRESTING GEAR OPERATOR Oxygen Saturation 98% 07/01/2024 9:02 AM ARRESTING GEAR OPERATOR Inhaled Oxygen Concentration - - Weight 91.2 kg (201 lb) 08/30/2024 8:19 AM CDT Height 167.6 cm (5' 6) 08/30/2024 8:19 AM CDT Body Mass Index 32.44 08/30/2024 8:19 AM CDT Plan of Treatment Not on file Procedures Procedure Name Priority Date/Time Associated Diagnosis Comments CBC WITH AUTO DIFFERENTIAL Routine 11/04/2024 11:47 AM CDT High risk medication use COMPREHENSIVE METABOLIC PANEL Routine 11/04/2024 11:47 AM CDT High risk medication use CRP (ACUTE PHASE) Routine 11/04/2024 11: 47 AM CDT High risk medication use Rheumatoid arthritis involving multiple sites with positive rheumatoid factor (HCC) ERYTHROCYTE SEDIMENTATION RATE Routine 11/04/2024 11:47 AM CDT High risk medication use Rheumatoid arthritis involving multiple sites with positive rheumatoid factor (HCC) LIPID PANEL Routine 11/04/2024 11:47 AM CDT High risk medication use Rheumatoid arthritis involving multiple sites with positive rheumatoid factor (HCC) HEPATIC FUNCTION PANEL Routine 08/30/2024 9:13 AM CDT Type 2 diabetes mellitus with other specified complication, with long-term current use of insulin (HCC) Nonalcoholic fatty liver disease Elevated liver function tests ALBUMIN CREATININE RATIO, URINE Routine 08/30/2024 9:13 AM CDT Type 2 diabetes mellitus with other specified complication, with long-term current use of insulin (HCC) POCT GLUCOSE [id number] Routine 08/30/2024 8: 24 AM CDT Type 2 diabetes mellitus with other specified complication, with long-term current use of insulin (HCC) POCT HEMOGLOBIN A1C Routine 08/30/2024 8 :24 AM CDT Type 2 diabetes mellitus with other specified complication, with long-term current use of insulin (HCC) HEPATITIS PANEL, ACUTE Routine 06/11/2024 8:10 AM ARRESTING GEAR OPERATOR Elevated liver enzymes PAP AND HIGH RISK HPV, REFLEX TO GENOTYPING Routine 12/16/2021 9:34 AM CDT Well woman exam with routine gynecological exam from Last 3 Months or Most Recently Relevant to Health Maintenance Results * (ABNORMAL) CBC with auto differential (11/04/2024 11:47 AM CDT) White Blood Count 10.4 3.6 - 11.2 K/uL [facility] RBC 4.13 3.63 - 4.92 M/uL [facility] Hemoglobin 13.9 11.9 - 15.5 g/dL [facility] Hematocrit 40.9 36.1 - 44.3 % [facility] MCV 99.1(H) 80.0 - 97.6 fL [facility] MCH 33.6 26.7 - 33.7 pg [facility] MCHC 33.9 32.7 - 35.5 g/dL [facility] RBC Dist Width 13.5 12.3 - 17.0 % [facility] Platelet Count 271 140 - 440 K/uL [facility] MPV 8.2 6.8 - 10.4 fL [facility] Neutrophils % 52.4 38.7 - 74.5 % [facility] Lymphocyte % 35.3 20.0 - 54.3 % [facility] Monocytes % 7.2 4.3 - 13.5 % [facility] Eosinophils % 4.8 0.0 - 6.0 % [facility] Basophil % 0.3 0.0 - 3.0 % [facility] Absolute Neutrophil 5.5 1.8 - 6.6 K/uL [facility] Absolute Lymphocyte 3.7(H) 0.8 - 3.3 K/uL [facility] Absolute Monocyte 0.7 0.2 - 1.2 K/uL [facility] Absolute Eosinophil 0.5 0.0 - 0.5 K/uL [facility] Absolute Basophil 0.0 0.0 - 0.2 K/uL [facility] Nucleated RBC % 0.1 0.0 - 0.4 /100 WBC [facility] Blood 11/04/2024 11:4 7 AM CDT 11/04/2024 12:46 PM CDT us Thu Espino MD LAB BLOOD ORDERABLES Final Resul t Performing Organization Address [facility] de Phone Number [facility] * (ABNORMAL) Erythrocyte sedimentation rate (11/04/2024 11:47 AM CDT) Erythrocyte Sedimentation Rate 33(H) <30 mm/hr [facility] Blood 11/04/2024 11:4 7 AM CDT 11/04/2024 12:46 PM CDT us Thu Espino MD LAB BLOOD ORDERABLES Final Resul t Performing Organization Address [facility] de Phone Number [facility] * CRP (acute phase) (11/04/2024 11:47 AM CDT) C-Reactive Protein, Acute <3.0 <5.0 mg/L [facility] Blood 11/04/2024 11:4 7 AM CDT 11/04/2024 12:46 PM CDT us Thu Espino MD LAB BLOOD ORDERABLES Final Resul t Performing Organization Address [facility] de Phone Number [facility] * (ABNORMAL) Lipid panel (11/04/2024 11:47 AM CDT) Triglycerides 177(H) <150 mg/dL [facility] Comment: Persistently elevated triglycerides may enhance atherosclerotic cardiovascular disease. Desirable: <150 mg/dL, fasting <175 mg/dL, non-fasting Total Cholesterol 233(H) <200 mg/dL [facility] Comment:Repeated and Verifie d Total HDL-C Direct 38(L) >50 mg/dL [facility] Comment: A low HDL-C may be indicative of metabolic syndrome and enhance atherosclerotic cardiovascular disease risk. Non-HDL cholesterol 195 <220 mg/dL [facility] Calculated LDL Chol 163 <190 mg/dL [facility] Comment: Consider the use of non-HDL-C or Apo B to help estimate atherosclerotic cardiovascular diesase risk if triglycerides are elevated. Blood 11/04/2024 11:4 7 AM CDT 11/04/2024 12:46 PM CDT Narrative [facility] - 11/04/2024 2:24 PM CDT Beginning October 19, 2024, LDL are now calculated by the Cullen-NIH equation (KEILA Cardiol 2020;5:540-8) which is more accuarate than the older Friedewald equation in patients with low LDL cholesterol or high triglycerides. For adults ages 40-79, the ACC/AHA recommends discussing your 10-year atherosclerotic cardiovascular disease risk with your health care provider. https://www.acc.org/ASCVDApp us Thu Espino MD LAB BLOOD ORDERABLES Final Resul t [facility] * (ABNORMAL) Comprehensive metabolic panel (11/04/2024 11:47 AM CDT) Total Protein 8.1 6.1 - 8.4 g/dL [facility] Albumin 4.3 3.5 - 5.2 g/dL [facility] Calcium 9.9 8.6 - 10.3 mg/dL [facility] BUN 13 7 - 23 mg/dL [facility] Total Bilirubin 0.50 0.20 - 1.40 mg/dL [facility] Alk Phos, Total 103 35 - 129 IU/L [facility] AST (SGOT) 58(H) 11 - 47 IU/L [facility] ALT (SGPT) 82(H) 6 - 53 IU/L [facility] Creatinine 0.77 0.60 - 1.10 mg/dL [facility] Sodium 138 135 - 145 mmol/L [facility] Potassium 4.2 3.3 - 5.1 mmol/L [facility] Chloride 107 95 - 107 mmol/L [facility] CO2 Content 22 21 - 29 mmol/L [facility] Glucose 155(H) 64 - 99 mg/dL [facility] Comment: NONFASTING GLUCOSE RANGE = 64-199 mg/dL FASTING GLUCOSE 64 - 99 = NORMAL FASTING GLUCOSE 100 - 125 = IMPAIRED FASTING GLUCOSE FASTING GLUCOSE >=126 = PROVISIONAL DIAGNOSIS OF DIABETES eGFR >90.0 >60.0 mL/min/1.7 3 m2 [facility] Blood 11/04/2024 11:4 7 AM CDT 11/04/2024 12:46 PM CDT Thu Espino MD LAB BLOOD ORDERABLES Final Resul t Performing Organization Address City/[facility] Co de Phone Number [facility] * Albumin Creatinine Ratio, Urine (08/30/2024 9:13 AM CDT) Albumin Ur 13.5 mg/L Comment: Interpretive Data No reference range established. Current interpretive data was last revised 2018. Creatinine Ur 117.6 mg/dL [facility] Comment: Interpretive Data No reference range established. Current interpretive data was last revised 2018. Albumin Creatinine Ratio, Ur 11 1 - 29 mg/g [facility] Urine 08/30/2024 9:13 AM CDT 08/30/2024 9:45 AM CDT Result [facility] Jessica FELIZ LAB URINE ORDERABLES Franny l Result Performing Organization Address City/[facility]/ZIP Co de Phone Number [facility] Department [place] [address] * (ABNORMAL) Hepatic function panel (08/30/2024 9:13 AM CDT) Bilirubin, total 0.4 0.1 - 1.2 mg/dL Bilirubin, direct <0.2 0.1 - 0.3 mg/dL [facility] Protein, pl 8.0 6.5 - 8.5 g/dL [facility] Albumin 4.5 3.5 - 5.0 g/dL [facility] Alk phos 88 40 - 130 Units/L [facility] ALT 57(H) 7 - 45 Units/L [facility] AST 52(H) 10 - 45 Units/L [facility] Blood 08/30/2024 9:13 AM CDT 08/30/2024 9:45 AM CDT Jessica FELIZ LAB BLOOD ORDERABLES Franny l Result [facility] [place] [address] * POCT glucose (08/30/2024 8:24 AM CDT) Pathologist [facility] Glucose Blood, POC 143 mg/dL Comment:Finger stick Blood 08/30/2024 8:24 AM CDT Jessica FELIZ POINT OF CARE TEST ORDERA BLES Final Result * POCT hemoglobin A1c (08/30/2024 8:24 AM CDT) Pathologist [facility] Hemoglobin A1C, POC 7.7 4.0 - 5.6 % Blood 08/30/2024 8:24 AM CDT Jessica FELIZ POINT OF CARE TEST ORDERA BLES Final Result * Hepatitis panel, acute Blood (06/11/2024 8:10 AM ARRESTING GEAR OPERATOR) Pathologist [facility] Hep A IgM Nonreactive Nonreactive Hep B core IgM Nonreactive Nonreactive [facility] Hep C Ab Nonreactive Nonreactive [facility] Comment:Antibodies to HCV no t detected. Does NOT exclude the possibility of recent exposure to HCV. Current interpretive data was last revised on 22 HepBsAg Nonreactive Nonreactive [facility] Blood 06/11/2024 8:10 AM ARRESTING GEAR OPERATOR 06/11/2024 8:36 AM ARRESTING GEAR OPERATOR us Thu Espino MD LAB MICROBIOLOGY - GENERAL ORDER NINO Final Result CHUYITA SMITH [facility] [place] [address] * Pap and High Risk HPV, reflex to Genotyping (12/16/2021 9:34 AM CDT) Thin prep (Pap test) 12/16/2021 9:34 AM CDT 12/17/2021 9:34 AM CDT Narrative PATHOLOGY [facility] - 12/19/2021 9:[address] [facility] Department of Pathology [address] [place] [id number] Final Report with Addendum Note to Patients: This report may contain a detailed description of human tissue sent by a health care provider to the laboratory for pathologic evaluation. The content of this report is essential for diagnosis and may provide important critical findings. This information may be unfamiliar to patients to review without a medical professional present. It is advised that the patient review this report in the presence of a health care provider who can answer questions and explain the details. Patient Name: SOPHIE ROJAS Address: [address] [place] [address] Gender: F : 1975 (Age: 46) Service: Laboratory Location: N : [id number] [facility] #: [id number] Patient Type: [facility] SPECIMEN Taken: 12/16/2021 Received: 12/17/2021 Accessioned:: 12/18/2021 Reported: 12/19/2021 Physician(s): Hilda Reveles M.D. [facility] Diagnosis: Source of Specimen: SCREENING THIN PREP IMAGED PAP w/ HPV Specimen Adequacy: - Satisfactory for evaluation; endocervical/transformation zone component present General Category: - Negative for intraepithelial lesion or malignancy VICTOR M Curry(ASCP) Report Electronically Reviewed and Signed Out By VICTOR M Curry(ASCP) 12/19/2021 09:55:48Addenda: HPV Test Interpretation NEGATIVE for types 16, 18, 31, 33, 35, 39, 45, 51, 52, 56, 58, 59, 66 and 68. Test performed utilizing Gen-Probe Aptima assay. VICTOR M Cotter(ASCP)Report Electronically Reviewed and Signed Out By VICTOR M Cotter(ASCP) 12/18/2021 16:34:03 Specimen(s) Received: A: SCREENING THIN PREP IMAGED PAP w/ HPV Clinical History: The Pap test is a screening test used to aid in the detection of cervical cancer and its precursors. It should not be the sole means by which malignant and premalignant lesions are diagnosed. Both false negative and false positive results may occur. It also has poor sensitivity for the detection of endometrial lesions and should not be used to evaluate suspected endometrial abnormalities. For these reasons it is most important to obtain Pap tests at regular intervals. The performance characteristics of some immunohistochemical stains, fluorescence in-situ hybridization tests and immunophenotyping by flow cytometry cited in this report (if any) were determined by the Surgical Pathology Department at [facility] as part of an ongoing quality control program and in compliance with federally mandated regulations drawn from the Clinical Laboratory Improvement Act of 1988 (CLIA '88). Some of these tests rely on the use of analyte specific reagents and are subject to specific labeling requirements by the US Food and Drug Administration. Such diagnostic tests may only be performed in a facility that is certified by the Department of Health and Human Services as a high complexity laboratory under CLIA '88. The FDA has determined that such clearance or approval is not necessary. This test is used for clinical purposes. It should not be regarded as investigational or for research. Nevertheless, federal rules concerning the medical use of analyte specific reagents require that the following disclaimer be attached to the report: This test was developed and its performance characteristics determined by the Surgical Pathology Department [facility]. It has not been cleared or approved by the U. S. Food and Drug Administration. Hilda Reveles MD LAB CYTOLOGY ORDERABLES Final Re sult PATHOLOGY [facility] from Last 3 Months or Most Recently Relevant to Health Maintenance Insurance MEDICARE [facility] Address: [address] [place] [phone] IDPA [facility] MEDICARE MEDICARE IDPA Care Teams Professor Of Practice Relationship Specialty Start Date End Date Devin Arredondo DO PCP - General Internal Medicine 05/09/20
--- OUTSIDE RECORDS SUMMARY | 2024-11-16 09:01 | XMS_ITS | Encounter Summary ---
Author Organization [facility] Address [address] [place] [address] Phone Care Team Providers Care Academic Adviser Name Role Phone Devin Arredondo DO Primary Care Provider +1- [phone] Encounter Details Date Type Department Care Team (Latest Contact Info) Description 04/02/2020 Orders Only LOU IM EML Scanning, Provider Social History Tobacco Use Types Packs/Day Years Used Date Smoking Tobacco: Never Assessed Comments Unknown Sex and Gender Information Value Date Recorded Sex Assigned at Not on file Legal Sex Female 8:30 PM 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
--- OUTSIDE RECORDS SUMMARY | 2024-11-16 09:01 | XMS_ITS | Encounter Summary ---
Author Organization [facility] Address [address] [place] [address] Phone Care Team Providers Care Programmer Analyst Name Role Phone Devin Arredondo DO Primary Care Provider +1- [phone] Encounter Details Date Type Department Care Team (Latest Contact Info) Description 04/10/2020 Orders Only LOU IM EML Scanning, Provider Social History Tobacco Use Types Packs/Day Years Used Date Smoking Tobacco: Never Assessed Comments Unknown Sex and Gender Information Value Date Recorded Sex Assigned at Not on file 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 Gender Identity Not on file Sexual Orientation Not on file documented as of this encounter Plan of Treatment Not on file documented as of this encounter Procedures Procedure Name Priority Date/Time Associated Diagnosis Comments SCAN - RADIOLOGY/IMAGING 04/10/2020 documented in this encounter Results * SCAN - RADIOLOGY/IMAGING (04/10/2020) Anatomical Region Laterality Modality Other us Provider Scanning Final Result documented in this encounter Visit Diagnoses Not on filedocumented in this encounter Care Teams Programmer Analyst Relationship Specialty Start Date End Date Devin Arredondo DO PCP - General Internal Medicine 05/09/20 documented as of this encounter
--- OUTSIDE RECORDS SUMMARY | 2024-11-16 09:01 | XMS_ITS | Clinical Summary ---
Author Organization [facility] Address [address] [place] [address] Care Team Providers Care Airframe Technician Name Role Phone Devin Arredondo DO Primary Care Provider +1- [phone] Allergies No known active allergies Medications famotidine [...] with long-term current use of insulin (HCC) USE TO INJECT INSULIN 3 TIMES PER DAY. 200 each 3 10/28/19 24 Active losartan (COZAAR) 25 mg tablet TAKE 1 TABLET BY MOUTH EVERY DAY. PLEASE MAKE AN APPT FOR FURTHER REFILLS 90 tablet 1 01/11/20 24 Active glucagon (Gvoke HypoPen 1-Pack) 1 mg/0.2 mL auto-injectorInd ications:Type 2 diabetes mellitus with other specified complication, with long-term current use of insulin ([facility]) Use as directed for severe hypoglycemia 2 [...] with long-term current use of insulin ([facility]) Inject 0.5 mL (5 mg total) under the skin every 7 days 2 mL 3 08/31/19 25 Active insulin aspart (NovoLOG) 100 unit/mL vial for injectionIndicat ions:Type 2 diabetes mellitus with other specified complication, with long-term current use of insulin ([facility]) Use in insulin pump. Max daily dose 100 units. 90 mL 3 08/31/19 25 Active insulin degludec (TRESIBA) 100 unit/mL (3 mL) pen for injectionIndicat ions:Type 2 diabetes mellitus with other specified complication, with long-term current use of insulin ([facility]) INJECT 33 UNITS ONCE DAILY IN CASE [...] activity Assessment & Plan (07/28/2022 9:22 AM FINANCIAL SERVICE REPRESENTATIVE): -Last labs dated 12/27/21 : TC 176 [...] date Assessment & Plan (07/30/2022 1:47 PM FINANCIAL SERVICE REPRESENTATIVE): -Currently taking Ozempic and Metformin, using Tandem insulin pump with Dexcom -A1C on 07/30/22 was 6.5% -Dexcom download indicates relatively stable pattern with time in range of 91%. She has occasional excursions. For now, will continue same pump settings. -Discussed diet and activity modifications. -Advised to call with any concerns/complaints regarding glucose readings -Eye exam is up to date Encounters Date Type Department Care Team Description 11/04/2024 11:40 AM CDT Lab [facility] Endocrinology Metabolism and Lipid [address] [facility] 5th [place] [address] [place] [address] High risk medication use; Rheumatoid arthritis involving multiple sites with positive rheumatoid factor (HCC) 11/04/2024 10:45 AM CDT Office Visit [facility] Rheumatology [address] [place] [address] [place] [address] Thu Espino MD High risk medication use (Primary Dx); Rheumatoid arthritis involving multiple sites with positive rheumatoid factor (HCC) 09/06/2024 Telephone [facility] Endocrinology Metabolism and Lipid [address] [place] [address] Dung Rubi, JESSICA Prior Auth (Tresiba) 08/31/2024 Telephone [facility] Gastroenterology [address] [place] [address] [place] [address] Marlen Machado CMA 08/31/2024 Telephone [facility] Endocrinology Metabolism and Lipid [address] [facility] 13 [place] [address] [place] [address] Ana Iraheta RMA Fibroscan Appointment 08/31/2024 Results Follow-Up [facility] Endocrinology Metabolism and Lipid [address] [place] [address] [place] [address] Jessica Perez PA Albumin Creatinine Ratio, Urine, Hepatic function panel 08/31/2024 Telephone [facility] Endocrinology Metabolism and Lipid [address] [facility] 13th [place] [address] [place] [address] Jessica Perez PA Lab Results 08/30/2024 9:20 AM CDT Lab [facility] ([facility]) [address] [place] [address] Type 2 diabetes mellitus with other specified complication, with long-term current use of insulin (HCC); Nonalcoholic fatty liver disease; Elevated liver function tests 08/30/2024 8:30 AM CDT Office Visit [facility] Endocrinology Metabolism and Lipid [address] [facility] 13th [place] [address] [place] [address] Jessica Perez PA Type 2 diabetes mellitus [...] Insulin pump titration from Last 3 Months Immunizations Immunization Administration Dates Next Due Pfizer SARS-CoV-2 Monovalent Vaccination (12+ Yrs) PURPLE 09/17/2020 ZOSTER Recombinant 07/01/2024,04/15/2024 Surgical History Surgery Date Site/Laterality Comments HYSTEROSCOPY Medical History Medical History Date Comments Diabetes (HCC) Obesity Family History Medical History Relation Name Comments No Known Problems Father No Known Problems Mother Relation Name Status Comments Father Mother Social History Tobacco Use Types Packs/Day Years [...] on file Legal Sex Female 8:30 PM FINANCIAL SERVICE REPRESENTATIVE Gender Identity Not on file Sexual Orientation Not on file Obstetrics History Para Term AB IAB SAB Ectopic Multiple Livin g Live Births 3 3 Date Outcome GA Total Labor Labor/2nd/3rd Weight Sex Type Anes PTL Valarie A1 A5 Name Clin Para Para Para Last Filed Vital Signs Vital Sign Reading Time Taken Comments Blood Pressure 136/83 08/30/2024 8:19 AM CDT Pulse 83 08/30/2024 8:19 AM CDT Temperature 36.8 C (98.3 F) 08/30/2024 8:19 AM CDT Respiratory Rate 18 07/01/2024 9:02 AM FINANCIAL SERVICE REPRESENTATIVE Oxygen Saturation 98% 07/01/2024 9:02 AM FINANCIAL SERVICE REPRESENTATIVE Inhaled Oxygen Concentration - - Weight 91.2 kg (201 lb) 08/30/2024 8:19 AM CDT Height 167.6 cm (5' 6) 08/30/2024 8:19 AM CDT Body Mass Index 32.44 08/30/2024 8:19 AM CDT Plan of Treatment Health Maintenance Due Date Last Done Comments Breast Cancer Screening-Mammogram 1975 Colon Cancer Screening-Colonoscopy 1975 Depression Screening 1975 Dilated Eye Exam 1975 Foot Exam 1975 DTaP/Tdap/Td Vaccine (1 - Tdap) 1984 Pneumococcal vaccine <65 (1 of 2 - PCV) 1992 Cervical Cancer Screening 12/16/2022 12/16/2021 Regular Well Visit/Exam 18-64 12/16/2022 12/16/2021 Covid-19 Vaccine (2 - 2023-2 5 season) 2024 09/17/2020 Influenza Vaccine (Season Ended) 2025 Hemoglobin A1C 03/02/2025 08/30/2024, 05/22, 12/08/2023, Additional history exists Albumin Creatinine Ratio, Urine 08/30/2025 08/30/2024, 01/23/2023, 06/05/2021, Additional history exists Lipid Panel 11/04/2025 11/04/2024, 05/23, 04/15/2024, Additional history exists eGFR 11/04/2025 11/04/2024, 05/23, 04/30/2024, Additional history exists Hepatitis B Screening Completed 06/11/2024 Hepatitis C Screening Completed 06/11/2024, 023 Zoster Vaccine Completed 07/01/2024, 04/15/2024 Procedures Procedure Name Priority Date/Time Associated Diagnosis [...] current use of insulin (HCC) POCT GLUCOSE 21056 Routine 08/30/2024 8: 24 AM CDT Type 2 diabetes mellitus with other specified complication, with long-term current use of insulin (HCC) POCT HEMOGLOBIN A1C Routine 08/30/2024 8 :24 AM CDT Type 2 diabetes mellitus with other specified complication, with long-term current use of insulin (HCC) HEPATITIS PANEL, ACUTE Routine 06/11/2024 8:10 AM FINANCIAL SERVICE REPRESENTATIVE Elevated liver enzymes PAP AND HIGH RISK [...] MD LAB BLOOD ORDERABLES Final Resul t [facility] * (ABNORMAL) Erythrocyte sedimentation rate (11/04/2024 11:47 AM CDT) Erythrocyte Sedimentation Rate 33(H) <30 mm/hr [facility] Blood 11/04/2024 11:4 7 AM CDT 11/04/2024 12:46 PM CDT us Thu Espino MD LAB BLOOD ORDERABLES Final Resul t Performing Organization Address [facility] de Phone Number [facility] * CRP (acute phase) (11/04/2024 11:47 AM CDT) C-Reactive Protein, Acute <3.0 <5.0 mg/L [facility] Blood 11/04/2024 11:4 7 AM CDT 11/04/2024 12:46 PM CDT us Thu Espino MD LAB BLOOD ORDERABLES Final Resul t Performing Organization Address [facility] de Phone Number [facility] * (ABNORMAL) [...] AM CDT 11/04/2024 12:46 PM CDT Narrative [facility] - 11/04/2024 2:24 PM CDT [...] MD LAB BLOOD ORDERABLES Final Resul t [facility] * (ABNORMAL) [...] MD LAB BLOOD ORDERABLES Final Resul t [facility] * Albumin Creatinine Ratio, Urine (08/30/2024 9:13 AM CDT) Albumin Ur 13.5 mg/L Comment: Interpretive Data No reference range established. Current interpretive data was last revised 2018. Creatinine Ur 117.6 mg/dL [facility] Comment: Interpretive Data No reference range established. Current interpretive data was last revised 2018. Albumin Creatinine Ratio, Ur 11 1 - 29 mg/g [facility] Urine 08/30/2024 9:13 AM CDT 08/30/2024 9:45 AM CDT Jessica FELIZ LAB URINE ORDERABLES Franny l Result [facility] [place] [address] * (ABNORMAL) Hepatic function panel (08/30/2024 9:13 AM CDT) Bilirubin, total 0.4 0.1 - 1.2 mg/dL Bilirubin, direct <0.2 0.1 - 0.3 mg/dL [facility] Protein, pl 8.0 6.5 - 8.5 g/dL [facility] Albumin 4.5 3.5 - 5.0 g/dL [facility] Alk phos 88 40 - 130 Units/L [facility] ALT 57(H) 7 - 45 Units/L [facility] AST 52(H) 10 - 45 Units/L [facility] Blood 08/30/2024 9:13 AM CDT 08/30/2024 9:45 AM CDT Jessica FELIZ LAB BLOOD ORDERABLES Franny l Result [facility] Department [place] [address] * POCT glucose (08/30/2024 8:24 AM CDT) Glucose Blood, POC 143 mg/dL Comment:Finger stick Blood 08/30/2024 8:24 AM CDT Jessica FELIZ POINT OF CARE TEST ORDERA BLES Final Result * POCT hemoglobin A1c (08/30/2024 8:24 AM CDT) Hemoglobin A1C, POC 7.7 4.0 - 5.6 % Blood 08/30/2024 8:24 AM CDT Jessica FELIZ POINT OF CARE TEST ORDERA BLES Final Result * Hepatitis panel, acute Blood (06/11/2024 8:10 AM FINANCIAL SERVICE REPRESENTATIVE) Pathologist [facility] Hep A IgM Nonreactive Nonreactive Hep B core IgM Nonreactive Nonreactive [facility] Hep C Ab Nonreactive Nonreactive [facility] Comment:Antibodies to HCV no t detected. Does NOT exclude the possibility of recent exposure to HCV. Current interpretive data was last revised on 22 HepBsAg Nonreactive Nonreactive [facility] Blood 06/11/2024 8:10 AM FINANCIAL SERVICE REPRESENTATIVE 06/11/2024 8:36 AM FINANCIAL SERVICE REPRESENTATIVE Thu Espino MD LAB MICROBIOLOGY - GENERAL ORDER NINO Final Result [facility] [place] [address] * Pap and High Risk HPV, reflex to Genotyping (12/16/2021 9:34 AM CDT) Thin prep (Pap test) 12/16/2021 9:34 AM CDT 12/17/2021 9:34 AM CDT Narrative PATHOLOGY [facility] - 12/19/2021 9:55 AM CDT [facility] Department of Pathology [address] [place] [address] Final Report with Addendum Note to Patients: [...] the details. Patient Name: SOPHIE ROJAS Address: [address] [place] [address] Gender: F : 1975 (Age: 46) Service: Laboratory Location: [facility] #: [id number] Patient Type: [facility] SPECIMEN Taken: 12/16/2021 Received: 12/17/2021 Accessioned:: 12/18/2021 Reported: 12/19/2021 Physician(s): Hilda Reveles M.D. [facility] Diagnosis: Source of Specimen: SCREENING THIN PREP IMAGED PAP w/ HPV Specimen Adequacy: - Satisfactory for evaluation; endocervical/transformation zone component present General Category: - Negative for intraepithelial lesion or malignancy VICTOR M Curry(ASCP) Report Electronically Reviewed and Signed Out By VENUS CurryASC) 12/19/2021 09:55:48Addenda: HPV Test Interpretation NEGATIVE for [...] determined by the Surgical Pathology Department at [facility] as part of an ongoing quality management coordinator program and in compliance with federally mandated [...] characteristics determined by the Surgical Pathology Department [facility]. It has not been cleared or approved by the U. S. Food and Drug Administration. Hilda Reveles MD LAB CYTOLOGY ORDERABLES Final Re sult [facility] from Last 3 Months or Most Recently Relevant to Health Maintenance Insurance MEDICARE IDPA [employer]PR MEDICARE MEDICARE [facility] Address: [address] [address] [place] [address] [employer]PA Care Teams Airframe Technician Relationship Specialty Start Date End Date Devin Arredondo DO PCP - General Internal Medicine 05/09/20
== END 2024-11-16 08:56 | disposition home or self-care (01) ==
PROVIDERS: PCP Internal Medicine; Visit Provider Plastic Surgery
DX: G56.22 Lesion of ulnar nerve, left upper limb (principal)
CPT/HCPCS: 73110

== ENCOUNTER 2025-01-03 09:18 | Outpatient (CLI) | payer MEDICARE, MEDICAID, SELFPAY ==
--- OUTSIDE RECORDS SUMMARY | 2025-01-03 09:33 | XMS_ITS | Encounter Summary ---
Author Organization [facility] Address [address] [place] [address] Phone Care Team Providers Care Automatic Typewriter Inspector Name Role Phone Devin Arredondo DO Primary Care Provider +1- [phone] Encounter Details Date Type Department Care Team (Latest Contact Info) Description 04/02/2020 Orders Only LOU IM EML Scanning, Provider Social History Tobacco Use Types Packs/Day Years Used Date Smoking Tobacco: Never Assessed Comments Unknown Sex and Gender Information Value Date Recorded Sex Assigned at Not on file 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
--- OUTSIDE RECORDS SUMMARY | 2025-01-03 09:33 | XMS_ITS | Referral Summary ---
Author Organization [facility] Address [address] [place] [address] Care Team Providers Care Presiding Judge Name Role Phone Devin Arredondo DO Primary Care Provider [phone] Encounters Date Type Department Care Team Description 12/26/2024 10:30 AM CDT Infusion [facility] [address] [place] [address] Rheumatoid arthritis, involving unspecified site, unspecified whether rheumatoid factor present (HCC) (Primary Dx) 12/26/2024 Orders Only [facility] [address] [place] [address] Dwight Valdze RN 12/20/2024 2:15 PM CDT Lab [facility] [address] [place] [id number] High risk medication use; Rheumatoid arthritis, involving unspecified site, unspecified whether rheumatoid factor present (HCC) 12/20/2024 11:15 AM CDT Office Visit [facility] [address] [facility] 5th [place] [address] [place] [address] Thu Espino MD High risk medication use (Primary Dx); Rheumatoid arthritis, involving unspecified site, unspecified whether rheumatoid factor present (HCC) 12/14/2024 Telephone [facility] Met[facility]id [address] [facility] 5th [place] [address] [place] [address] Lesia Soria RMA Prior Auth (TRAY BALDERAS PLEASE) 12/12/2024 9:20 AM CDT Office Visit [facility] [address] [facility] 13[address] [place] [address] [place] [address] Leila Rodriguez MD Type 2 diabetes mellitus with other specified complication, with long-term current use of insulin (HCC) (Primary Dx); Nonalcoholic fatty liver disease; Class 1 obesity due to excess calories with serious comorbidity and body mass index (BMI) of 32.0 to 32.9 in adult; Mixed hyperlipidemia; Hypertension, unspecified type 11/04/2024 11:40 AM CDT Lab [facility] [address] [facility] 5[address] [place] [address] [place] [id number] High risk medication use; Rheumatoid arthritis involving multiple sites with positive rheumatoid factor (HCC) 11/04/2024 10:45 AM CDT Office Visit [facility] [address] [facility] 5[address] [place] [address] [place] [address] Thu Espino MD High risk medication use (Primary Dx); Rheumatoid arthritis involving multiple sites with positive rheumatoid factor (HCC) from Last 3 Months Allergies No known active allergies Medications famotidine (PEPCID) 20 mg tablet 020 Active glucagon 1 mg injection INJECT 1 MG UNDER THE SKIN ONCE NEEDED. MAY REPEAT IN 15 MINS IF NEEDED WITH NEW DECIVE 021 Active atorvastatin (LIPITOR) 80 mg tablet Take 1 tablet (80 mg total) by mouth daily 022 Active pregabalin (LYRICA) 150 mg capsule Take 1 capsule (150 mg total) by mouth 2 (two) times a day 023 Active pen needle, diabetic (BD Ultra-Fine Heather Pen Needle) 32 gauge x 5/32 needleIndicatio ns:Type 2 diabetes mellitus with other specified complication, with long-term current use of insulin (HCC) USE TO INJECT INSULIN 3 TIMES PER DAY. 200 each 3 024 Active glucagon (Gvoke HypoPen 1-Pack) 1 mg/0.2 mL auto-injectorIn dications:Type 2 diabetes mellitus with other specified complication, with long-term current use of insulin (HCC) Use as directed for severe hypoglycemia 2 mL 2 024 Active insulin degludec (TRESIBA) 100 unit/mL (3 mL) pen for injectionIndica tions:Type 2 diabetes mellitus with other specified complication, with long-term current use of insulin (HCC) INJECT 33 UNITS ONCE DAILY IN CASE OF PUMP FAILURE 15 mL 2 025 Active citalopram (CeleXA) 40 mg tablet Take 1 tablet (40 mg total) by mouth daily 025 Active tirzepatide (Mounjaro) 7.5 mg/0.5 mL pen injector injection Inject 0.5 mL (7.5 mg total) under the skin every 7 days 2 mL 3 025 Active insulin aspart (NovoLOG) 100 unit/mL vial for injectionIndica tions:Type 2 diabetes mellitus with other specified complication, with long-term current use of insulin (HCC) Use in insulin pump. Max daily dose 90 units. 90 mL 3 025 Active predniSONE (DELTASONE) 5 mg tablet Take 4 tablets (20 mg) by mouth daily for 7 days, THEN 3 tablets (15 mg) daily for 7 days, THEN 2 tablets (10 mg) daily for 7 days, THEN 1 tablet (5 mg) daily for 7 days. 70 tablet 025 2024 Active montelukast (SINGULAIR) 10 mg tablet 021 2024 Discontinued(P atient Reported) sertraline (ZOLOFT) 25 mg tablet Take 1 tablet (25 mg total) by mouth daily 022 2024 Discontinued(P atient Reported) varenicline (CHANTIX) 1 mg tablet Take 1 tablet (1 mg total) by mouth 2 (two) times a day 022 2024 Discontinued(P atient Reported) citalopram (CeleXA) 20 mg tablet Take 1 tablet (20 mg total) by mouth daily 022 2024 Discontinued(A lternate therapy) losartan (COZAAR) 25 mg tablet TAKE 1 TABLET BY MOUTH EVERY DAY. PLEASE MAKE AN APPT FOR FURTHER REFILLS 90 tablet 1 07/22/2 024 2024 Discontinued(N o longer taking - Do not display on AVS) bisacodyL 5 mg tabletIndicatio ns:Constipation , unspecified constipation type Take 10 mg by mouth daily 10 tablet 024 2024 Discontinued(P atient Reported) upadacitinib 15 mg tablet extended release 24 hr Take 15 mg by mouth daily 30 tablet 11 024 2024 Discontinued(T herapy completed) tirzepatide (Mounjaro) 5 mg/0.5 mL pen injector injectionIndica tions:Type 2 diabetes mellitus with other specified complication, with long-term current use of insulin ([facility]) Inject 0.5 mL (5 mg total) under the skin every 7 days 2 mL 3 025 2024 Discontinued insulin aspart (NovoLOG) 100 unit/mL vial for injectionIndica tions:Type 2 diabetes mellitus with other specified complication, with long-term current use of insulin ([facility]) Use in insulin pump. Max daily dose 100 units. 90 mL 3 025 2024 Discontinued(R eorder) sulfaSALAzine (AZULFIDINE) 500 mg tabletIndicatio ns:Rheumatoid arthritis involving multiple sites with positive rheumatoid factor (HCC) Take 3 tablets (1,500 mg total) by mouth 2 (two) times a day 360 tablet 025 2024 Discontinued(P atient Reported) Mounjaro 5 mg/0.5 mL pen injector injectionIndica tions:Type 2 diabetes mellitus with other specified complication, with long-term current use of insulin ([facility]) INJECT 0.5 ML (5 MG TOTAL) UNDER THE SKIN EVERY 7 DAYS 2 mL 025 2024 Discontinued(O ther) Active Problems Problem Noted Date Diagnosed Date Rheumatoid arthritis 12/20/2024 Elevated liver function tests 08/30/2024 Eye pain [...] activity Assessment & Plan (07/28/2022 9:22 AM [employer]): -Last labs dated 12/27/21 : TC 176 [...] date Assessment & Plan (07/30/2022 1:47 PM [employer]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 Monthly or less 03/03/2022 Q2: How many drinks containi ng alcohol do you have on a typical day when you are drinking? 1 or 2 03/03/2022 Q3: How often do you have si x or more drinks on one occasion? Less than monthly 03/03/2022 Hunger Vital Sign Answer Date Recorded Within the past 12 months, y ou worried that your food would run out before you got the money to buy more. Never true 12/27/19 25 Within the past 12 months, t he food you bought just didn't last and you didn't have money to get more. Never true 12/26/2024 Personal Safety Answer Date Recorded Have you ever been in or are you currently in a harmful physical or emotional relationship or is someone making you feel afraid or unsafe? 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 Gender Identity Not on file Sexual Orientation Not on file Last Filed Vital Signs Vital Sign Reading Time Taken Comments Blood Pressure 111/58 12/26/2024 1:15 PM CDT Pulse 90 12/26/2024 1:15 PM CDT Temperature 36.7 C (98 F) 12/20/2024 10:53 AM CDT Respiratory Rate 18 07/01/2024 9:02 AM [employer]GER Oxygen Saturation 99% 12/26/2024 1:15 PM CDT Inhaled Oxygen Concentration - - Weight 91.4 kg (201 lb 8 oz) 12/26/2024 10:05 AM CDT Height 167.6 cm (5' 6) 12/20/2024 10:53 AM CDT Body Mass Index 32.52 12/20/2024 10:53 AM CDT Plan of Treatment Not on file Procedures Procedure Name Priority Date/Time Associated Diagnosis Comments EGFR Routine 12/20/2024 12:16 PM CDT High risk medication use DIFFERENTIAL AUTO Routine 12/20/2024 12: 16 PM CDT High risk medication use CBC WITH AUTO DIFFERENTIAL Routine 12/20/2024 12:16 PM CDT High risk medication use COMPREHENSIVE METABOLIC PANEL Routine 12/20/2024 12:16 PM CDT High risk medication use CRP (ACUTE PHASE) Routine 12/20/2024 12: 16 PM CDT High risk medication use Rheumatoid arthritis, involving unspecified site, unspecified whether rheumatoid factor present (HCC) ERYTHROCYTE SEDIMENTATION RATE Routine 12/20/2024 12:16 PM CDT High risk medication use Rheumatoid arthritis, involving unspecified site, unspecified whether rheumatoid factor present (HCC) HEPATITIS B SURFACE ANTIBODY (IMMUNE STATUS) Routine 12/20/2024 12:16 PM CDT High risk medication use Rheumatoid arthritis, involving unspecified site, unspecified whether rheumatoid factor present (HCC) HEPATITIS B SURFACE ANTIGEN Routine 12/20/2024 12:16 PM CDT High risk medication use Rheumatoid arthritis, involving unspecified site, unspecified whether rheumatoid factor present (HCC) HEPATITIS B CORE ANTIBODY, TOTAL Routine 12/20/2024 12:16 PM CDT High risk medication use Rheumatoid arthritis, involving unspecified site, unspecified whether rheumatoid factor present (HCC) HEPATITIS C ANTIBODY Routine 12/20/2024 12:16 PM CDT High risk medication use Rheumatoid arthritis, involving unspecified site, unspecified whether rheumatoid factor present (HCC) HIV 1/2 ANTIBODY PLUS P24 ANTIGEN Routine 12/20/2024 12:16 PM CDT High risk medication use Rheumatoid arthritis, involving unspecified site, unspecified whether rheumatoid factor present (HCC) T-SPOT.TB Routine 12/20/2024 12:16 PM CDT High risk medication use Rheumatoid arthritis, involving unspecified site, unspecified whether rheumatoid factor present (HCC) POCT HEMOGLOBIN A1C Routine 12/12/2024 8 :50 AM CDT Type 2 diabetes mellitus with other specified complication, with long-term current use of insulin (HCC) POCT GLUCOSE 12423 Routine 12/12/2024 8: 49 AM CDT Type 2 diabetes mellitus with other specified complication, with long-term current use of insulin (HCC) CBC WITH AUTO DIFFERENTIAL Routine 11/04/2024 11:47 [...] multiple sites with positive rheumatoid factor (HCC) ALBUMIN CREATININE RATIO, URINE Routine 08/30/2024 9:13 AM CDT Type 2 diabetes mellitus with other specified complication, with long-term current use of insulin (HCC) PAP AND HIGH RISK HPV, REFLEX TO GENOTYPING Routine 12/16/2021 9:34 AM CDT Well woman exam with routine gynecological exam from Last 3 Months or Most Recently Relevant to Health Maintenance Results * T-SPOT.TB Blood (12/20/2024 12:16 PM CDT) [facility] T-SPOT.TB Negative SeeBelow Comment: Normal Value: Negative A negative test result does not exclude the possibility of exposure to or infection with Mycobacterium tuberculosis (M. tuberculosis). Patients with recent exposure to TB infected individuals exhibiting a negative T-SPOT.TB result should be considered for retesting within 6 weeks or if other relevant clinical symptoms indicate. Results from T-SPOT.TB testing must be used in conjunction with each individual's epidemiological history, current medical status, and results of other diagnostic evaluations. The T-SPOT.TB test is qualitative and results are reported as positive, borderline or negative, given that the test controls perform as expected. In line with the Centers for Disease Control and Prevention's 2010 recommendation to report quantitative measurements alongside the qualitative result, the laboratory provides spot counts for informational purposes only. The T-SPOT.TB test should not be interpreted as a quantitative test. T-SPOT.TB Panel A Spot Count 0 [facility] T-SPOT.TB Panel B Spot Count 0 [facility] T-SPOT.TB Negative Control Passed [facility] T-SPOT.TB Positive Control Passed [facility] Comment: Test Performed at: [employer] [facility] [address] CHIN VELAZQUEZ,PHD Blood 12/20/2024 12:1 6 PM CDT 12/20/2024 1:03 PM CDT Thu Espino MD LAB MICROBIOLOGY - GENERAL ORDER NINO Final Result [facility] [place] [address] * eGFR (12/20/2024 12:16 PM CDT) eGFR 89 >=60 mL/min/1. 73 m2 Comment: Interpretive Data Reference Interval Normal >/= 90 mL/min/1.73m2 Mildly decreased* 60 - 89 mL/min/1.73m2 Mildly to moderately decreased 45 - 59 mL/min/1.73m2 Moderately to severely decreased 30 - 44 mL/min/1.73m2 Severely decreased 15 - 29 mL/min/1.73m2 Kidney Failure < 15 mL/min/1.73m2 *Relative to young adult level Estimated glomerular filtration rate is determined by the 2020 CKD-EPI equation recommended by the National Kidney Foundation (A Unifying Approach to GFR Estimation: Recommendations of the NKF-ASK Task Force on Reassessing the Inclusion of Race in Diagnosing Kidney Disease, JASN 2020). The CKD-EPI equation should not be used for patients with unstable renal function and has not been validated in children and those over 70. Current interpretive data was last reviewed 2021. Blood 12/20/2024 12:1 6 PM CDT 12/20/2024 12:50 PM CDT us Thu Espino MD LAB BLOOD ORDERABLES Final Resul t [facility] [place] [address] * Differential, auto (12/20/2024 12:16 PM CDT) Neutrophil abs 6.46 1.50 - 6.50 K/cumm Imm gran abs 0.04 0.00 - 0.10 K/cumm [facility] Lymphocyte abs 2.40 0.80 - 3.30 K/cumm [facility] Monocyte abs 0.61 0.20 - 0.80 K/cumm [facility] Eosinophil abs 0.24 0.00 - 0.50 K/cumm [facility] Basophil abs 0.02 0.00 - 0.10 K/cumm [facility] Neutrophil pct 66.1 % [facility] Comment: Interpretive Data Percent cell count reference ranges are not reported, since discordance with absolute values may lead to misinterpretation of CBC data. Current Interpretive Data was last revised on 2017. Imm gran pct 0.4 % [facility] Comment: Interpretive Data Percent cell count reference ranges are not reported, since discordance with absolute values may lead to misinterpretation of CBC data. Current Interpretive Data was last revised on 2017. Lymphocyte pct 24.6 % [facility] Comment: Interpretive Data Percent cell count reference ranges are not reported, since discordance with absolute values may lead to misinterpretation of CBC data. Current Interpretive Data was last revised on 2017. Monocyte pct 6.2 % [facility] Comment: Interpretive Data Percent cell count reference ranges are not reported, since discordance with absolute values may lead to misinterpretation of CBC data. Current Interpretive Data was last revised on 2017. Eosinophil pct 2.5 % [facility] Comment: Interpretive Data Percent cell count reference ranges are not reported, since discordance with absolute values may lead to misinterpretation of CBC data. Current Interpretive Data was last revised on 2017. Basophil pct 0.2 % [facility] Comment: Interpretive Data Percent cell count reference ranges are not reported, since discordance with absolute values may lead to misinterpretation of CBC data. Current Interpretive Data was last revised on 2017. Blood 12/20/2024 12:1 6 PM CDT 12/20/2024 12:41 PM CDT us Thu Espino MD LAB BLOOD ORDERABLES Final Resul t Performing Organization Address [facility] Co de Phone Number [facility] [place] [address] * HIV 1/2 Antibody plus p24 Antigen Blood (12/20/2024 12:16 PM CDT) [facility] HIV 1/2 ab + p24 ag Nonreactive Nonreactive Comment:Nonreactive for HIV- 1 antigen and HIV-1/HIV-2 antibodies. No laboratory evidence of HIV infection. If acute HIV infection is suspected, consider testing for HIV-1 RNA. Current interpretive data was last revised on 22. Blood 12/20/2024 12:1 6 PM CDT 12/20/2024 12:41 PM CDT us Thu Espino MD LAB MICROBIOLOGY - GENERAL ORDER NINO Final Result Performing Organization Address [facility] de Phone Number [facility] Department [place] [address] * (ABNORMAL) CBC with auto differential (12/20/2024 12:16 PM CDT) [facility] WBC 9.77 3.80 - 9.90 K/cumm Hgb 14.7 11.9 - 15.5 g/dL [facility] Hct 42.1 35.6 - 45.5 % [facility] Plt 245 150 - 400 K/cumm [facility] MPV 9.6 9.1 - 12.3 fL [facility] RBC 4.34 3.90 - 5.20 M/cumm [facility] MCV 97.0(H) 81.3 - 96.4 fL [facility] MCH 33.9(H) 27.1 - 33.3 pg [facility] MCHC 34.9 32.3 - 35.7 g/dL [facility] RDW CV 12.3 11.1 - 14.9 % [facility] RDW SD 44.0 35.7 - 48.1 fL [facility] NRBC abs 0.00 0.00 - 0.01 K/cumm [facility] Blood 12/20/2024 12:1 6 PM CDT 12/20/2024 12:41 PM CDT us Thu Espino MD LAB BLOOD ORDERABLES Final Resul t Performing Organization Address [facility] Co de Phone Number [facility] Department [place] [employer] [place] [address] * Hepatitis C antibody Blood (12/20/2024 12:16 PM CDT) Hep C Ab Nonreactive Nonreactive Comment:Antibodies to HCV no t detected. Does NOT exclude the possibility of recent exposure to HCV. Current interpretive data was last revised on 22 Blood 12/20/2024 12:1 6 PM CDT 12/20/2024 12:41 PM CDT us Thu Espino MD LAB MICROBIOLOGY - GENERAL ORDER NINO Final Result [facility] Department [place] [employer] [place] [address] * Hepatitis B core antibody, total Blood (12/20/2024 12:16 PM CDT) Hep B core IgG/IgM Nonreactive Nonreactive Blood 12/20/2024 12:1 6 PM CDT 12/20/2024 12:41 PM CDT us Thu Espino MD LAB MICROBIOLOGY - GENERAL ORDER NINO Final Result Performing Organization Address [facility] [place] [address] * Hepatitis B surface antibody (immune status) Blood (12/20/2024 12:16 PM CDT) HBsAb (immune status) Nonreactive Comment:This result is consi stent with a lack of immunity to Hepatitis B Virus when used in the setting of routine screening. Current interpretative data was last revised on 22 Blood 12/20/2024 12:1 6 PM CDT 12/20/2024 12:41 PM CDT us Thu Espino MD LAB MICROBIOLOGY - GENERAL ORDER NINO Final Result Performing Organization Address [facility] [place] [address] * Hepatitis B Surface Antigen Blood (12/20/2024 12:16 PM CDT) HepBsAg Nonreactive Nonreactive Blood 12/20/2024 12:1 6 PM CDT 12/20/2024 12:41 PM CDT us Thu Espino MD LAB MICROBIOLOGY - GENERAL ORDER NINO Final Result Performing Organization Address [facility]/ZIP Co de Phone Number [facility] [employer] [place] [address] * Erythrocyte sedimentation rate (12/20/2024 12:16 PM CDT) Erythrocyte sedimentation rate 24 1 - 30 mm/hr Blood 12/20/2024 12:1 6 PM CDT 12/20/2024 12:41 PM CDT us Thu Espino MD LAB BLOOD ORDERABLES Final Resul t [facility] [place] [address] * CRP (acute phase) (12/20/2024 12:16 PM CDT) Pathologist [facility] CRP 3.1 <=10.0 mg/L Blood 12/20/2024 12:1 6 PM CDT 12/20/2024 12:41 PM CDT Thu Espino MD LAB BLOOD ORDERABLES Final Resul t [facility] [place] [address] * (ABNORMAL) Comprehensive metabolic panel (12/20/2024 12:16 PM CDT) [facility] Sodium 141 135 - 145 mmol/L Potassium, pl 4.1 3.3 - 4.9 mmol/L [facility] Chloride 104 97 - 110 mmol/L [facility] CO2 25 22 - 32 mmol/L [facility] Anion gap 12 2 - 15 mmol/L [facility] BUN 14 6 - 25 mg/dL [facility] Creatinine 0.80 0.60 - 1.10 mg/dL [facility] Glucose 159 70 - 199 mg/dL [facility] Comment: Interpretive Data Fasting glucose >/= 126 mg/dl is diagnostic for diabetes. Fasting is defined as no caloric intake for at least 8 hours. Fasting glucose between 100 mg/dl to 125 mg/dl is diagnostic of prediabetes. In a patient with classic symptoms of hyperglycemia or hyperglycemic crisis, a random glucose >/= 200 mg/dl is diagnostic for diabetes. In the absence of unequivocal hyperglycemia, results should be confirmed by repeat testing. The classification and Diagnosis of Diabetes Diabetes Care 2021; 46: S19-S40. Current interpretive data was last revised 2022. Calcium 9.6 8.5 - 10.3 mg/dL [facility] Bilirubin, total 0.8 0.1 - 1.2 mg/dL [facility] Protein, pl 9.1(H) 6.5 - 8.5 g/dL [facility] Albumin 4.7 3.5 - 5.0 g/dL [facility] Alk phos 93 40 - 130 Units/L [facility] ALT 175(H) 7 - 45 Units/L [facility] AST 130(H) 10 - 45 Units/L [facility] Blood 12/20/2024 12:1 6 PM CDT 12/20/2024 12:41 PM CDT Thu Espino MD LAB BLOOD ORDERABLES Final Resul t [facility] [place] [address] * (ABNORMAL) POCT hemoglobin A1c (12/12/2024 8:50 AM CDT) Pathologist [facility] Hemoglobin A1C, POC 7.1(A) 4.0 - 5.6 % Blood 12/12/2024 8:50 AM CDT Leila Rodriguez MD POINT OF CARE TEST ORDERAB LES Final Result * POCT glucose (12/12/2024 8:49 AM CDT) [facility] Glucose Blood, POC 200 Normal Fasting 70 - 100, Random <200 mg/dL Blood 12/12/2024 8:49 AM CDT Leila Rodriguez MD POINT OF CARE TEST ORDERAB LES Final Result * (ABNORMAL) CBC with auto differential (11/04/2024 11:47 AM CDT) [facility] White Blood Count 10.4 3.6 - 11.2 [...] MD LAB BLOOD ORDERABLES Final Resul t [facility] * (ABNORMAL) Erythrocyte sedimentation rate (11/04/2024 11:47 AM CDT) Erythrocyte Sedimentation Rate 33(H) <30 mm/hr [facility] Blood 11/04/2024 11:4 7 AM CDT 11/04/2024 12:46 PM CDT Thu Espino MD LAB BLOOD ORDERABLES Final Resul t [facility] * CRP (acute phase) (11/04/2024 11:47 AM CDT) C-Reactive Protein, Acute <3.0 <5.0 mg/L [facility] Blood 11/04/2024 11:4 7 AM CDT 11/04/2024 12:46 PM CDT Thu Espino MD LAB BLOOD ORDERABLES Final Resul t Performing Organization Address [facility]/ZIP Co de Phone Number [facility] [...] AM CDT 11/04/2024 12:46 PM CDT Narrative [facility] - 11/04/2024 2:24 PM CDT Beginning October 19, 2024, LDL are now calculated by the Cullen-NIH equation (KEILA Cardiol 2020;5:540-8) which is more accuarate than the older Friedewald equation in patients with low LDL cholesterol or high triglycerides. For adults ages 40-79, the ACC/AHA recommends discussing your 10-year atherosclerotic cardiovascular disease risk with your health care provider. https://www.acc.org/ASCVDApp Thu Espino MD LAB BLOOD ORDERABLES Final Resul t [facility] * (ABNORMAL) [...] MD LAB BLOOD ORDERABLES Final Resul t [facility] * Albumin Creatinine Ratio, Urine (08/30/2024 9:13 AM CDT) Albumin Ur 13.5 mg/L Comment: Interpretive Data No reference range established. Current interpretive data was last revised 2018. Creatinine Ur 117.6 mg/dL [facility] Comment: Interpretive Data No reference range established. Current interpretive data was last revised 2018. Albumin Creatinine Ratio, Ur 11 1 - 29 mg/g [facility] Urine 08/30/2024 9:13 AM CDT 08/30/2024 9:45 AM CDT us Jessica FELIZ LAB URINE ORDERABLES Franny holden Result [facility] [place] [address] * Pap and High Risk HPV, reflex to Genotyping (12/16/2021 9:34 AM CDT) Thin prep (Pap test) 12/16/2021 9:34 AM CDT 12/17/2021 9:34 AM CDT Narrative [facility] - 12/19/2021 9:55 AM CDT [facility] Department of Pathology [address] [place] [id number] Final Report with Addendum Note to [...] the details. Patient Name: SOPHIE ROJAS Address: [address], [place] [address] Gender: F : 1975 (Age: 46) Service: Laboratory Location: [facility] #: [id number] Patient Type: E SPECIMEN Taken: 12/16/2021 Received: 12/17/2021 Accessioned:: 12/18/2021 Reported: 12/19/2021 Physician(s): Hilda Reveles M.D. [facility] Diagnosis: Source of Specimen: SCREENING THIN PREP IMAGED PAP w/ HPV Specimen Adequacy: - Satisfactory for evaluation; endocervical/transformation zone component present General Category: - Negative for intraepithelial lesion or malignancy VICTOR M Curry(ASCP) Report Electronically Reviewed and Signed Out By VENUS CurryASCP) 12/19/2021 09:55:48Addenda: HPV Test Interpretation NEGATIVE for types 16, 18, 31, 33, 35, 39, 45, 51, 52, 56, 58, 59, 66 and 68. Test performed utilizing Gen-Probe Aptima assay. VICTOR M Cotter(ASCP)Report Electronically Reviewed and Signed Out By VENUS CotterASCP) 12/18/2021 16:34:03 Specimen(s) Received: A: SCREENING THIN [...] determined by the Surgical Pathology Department at [facility] as part of an ongoing manager quality compliance program and in compliance with federally mandated [...] characteristics determined by the Surgical Pathology Department [facility]. It has not been cleared or approved by the U. S. Food and Drug Administration. Hilda Reveles MD LAB CYTOLOGY ORDERABLES Final Re sult [facility] from Last 3 Months or Most Recently Relevant to Health Maintenance Insurance MEDICARE [facility] Address: [address] [address] [place] [address] IDPA [place] MEDICARE MEDICARE IDWA Care Teams Presiding Judge Relationship Specialty Start Date End Date Devin Arredondo DO PCP - General Internal Medicine 05/09/20
--- OUTSIDE RECORDS SUMMARY | 2025-01-03 09:33 | XMS_ITS | Encounter Summary ---
Author Organization [facility] Address [address] [place] [address] Phone Care Team Providers Care Scrap Preparer Name Role Phone Devin Arredondo DO Primary Care Provider +1- [phone] Encounter Details Date Type Department Care Team (Latest Contact Info) Description 04/10/2020 Orders Only [facility] EML Scanning, Provider Social History Tobacco Use Types Packs/Day Years Used Date Smoking Tobacco: Never Assessed Comments Unknown Sex and Gender Information Value Date Recorded Sex Assigned at Not on file Legal Sex Female 8:30 PM STUBBER Gender Identity Not on file Sexual Orientation [...] on filedocumented in this encounter Care Teams Scrap Preparer Relationship Specialty Start Date End Date Devin Arredondo DO PCP - General Internal Medicine 05/09/20 documented as of this encounter
--- OUTSIDE RECORDS SUMMARY | 2025-01-03 09:33 | XMS_ITS | Clinical Summary ---
Author Organization [facility] Address [address] [place] [address] Care Team Providers Care Non Destructive Evaluation Technician Name Role Phone Devin Arredondo DO Primary Care Provider +1- [phone] Allergies No known active allergies Medications famotidine [...] complication, with long-term current use of insulin ([facility]) USE TO INJECT INSULIN 3 TIMES PER DAY. 200 each 3 024 Active glucagon (Gvoke HypoPen 1-Pack) 1 mg/0.2 mL auto-injectorIn dications:Type 2 diabetes mellitus with other specified complication, with long-term current use of insulin ([facility]) Use as directed for severe hypoglycemia 2 mL 2 024 Active insulin degludec (TRESIBA) 100 unit/mL (3 mL) pen for injectionIndica tions:Type 2 diabetes mellitus with other specified complication, with long-term current use of insulin ([facility]) INJECT 33 UNITS ONCE DAILY IN CASE [...] APPT FOR FURTHER REFILLS 90 tablet 1 024 2024 Discontinued(N o longer taking - [...] with long-term current use of insulin (HCC) Inject 0.5 mL (5 mg total) under [...] long-term current use of insulin (HCC) INJECT 0.5 ML (5 MG TOTAL) UNDER [...] activity Assessment & Plan (07/28/2022 9:22 AM INSTRUCTIONAL SERVICES LIBRARIAN): -Last labs dated 12/27/21 : TC 176 [...] date Assessment & Plan (07/30/2022 1:47 PM INSTRUCTIONAL SERVICES LIBRARIAN): -Currently taking Ozempic and Metformin, using Tandem [...] Team Description 12/26/2024 10:30 AM CDT Infusion [facility] [address] [place] [address] Rheumatoid arthritis, involving unspecified site, unspecified whether rheumatoid factor present (HCC) (Primary Dx) 12/26/2024 Orders Only [facility] [address] [place] [address] Carrier, Dwight Bonilla RN 12/20/2024 2:15 PM CDT Lab [facility] [address] [place] [address] [place] [address] High risk medication use; Rheumatoid arthritis, involving unspecified site, unspecified whether rheumatoid factor present (HCC) 12/20/2024 11:15 AM CDT Office Visit [facility] Rheumatology [address] [place] [address] [place] [address] Thu Espino MD High risk medication use (Primary Dx); Rheumatoid arthritis, involving unspecified site, unspecified whether rheumatoid factor present (HCC) 12/14/2024 Telephone [facility] Endocrinology Metabolism and Lipid [address] [place] [address] [place] [address] Lesia Soria RMA Prior Auth (TRAY BALDERAS PLEASE) 12/12/2024 9:20 AM CDT Office Visit [facility] Endocrinology Metabolism and Lipid [address] [place] [address] [place] [address] Leila Rodriguez MD Type 2 diabetes mellitus with other specified complication, with long-term current use of insulin (HCC) (Primary Dx); Nonalcoholic fatty liver disease; Class 1 obesity due to excess calories with serious comorbidity and body mass index (BMI) of 32.0 to 32.9 in adult; Mixed hyperlipidemia; Hypertension, unspecified type 11/04/2024 11:40 AM CDT Lab [facility] Endocrinology Metabolism and Lipid [address] [place] [address] [place] [address] High risk medication use; Rheumatoid arthritis involving multiple sites with positive rheumatoid factor (HCC) 11/04/2024 10:45 AM CDT Office Visit [facility] Rheumatology [address] [place] [address] [place] [address] Thu Espino MD High risk medication use (Primary Dx); Rheumatoid arthritis involving multiple sites with positive rheumatoid factor (HCC) from Last 3 Months Immunizations Immunization Administration [...] on file Legal Sex Female 8:30 PM INSTRUCTIONAL SERVICES LIBRARIAN Gender Identity Not on file Sexual Orientation [...] CDT Respiratory Rate 18 07/01/2024 9:02 AM INSTRUCTIONAL SERVICES LIBRARIAN Oxygen Saturation 99% 12/26/2024 1:15 PM CDT Inhaled Oxygen Concentration - - Weight 91.4 kg (201 lb 8 oz) 12/26/2024 10:05 AM CDT Height 167.6 cm (5' 6) 12/20/2024 10:53 AM CDT Body Mass Index 32.52 12/20/2024 10:53 AM CDT Plan of Treatment Health Maintenance [...] 2023-2 5 season) 2024 09/17/2020 Influenza Vaccine (#1) 2025 Hemoglobin A1C 06/13/2025 12/12/2024, 08/20, 06/02/2024, Additional history exists Albumin Creatinine Ratio, Urine 08/30/2025 08/30/2024, 01/23/2023, 06/05/2021, Additional history exists Lipid Panel 11/04/2025 11/04/2024, 05/23, 04/15/2024, Additional history exists eGFR 12/20/2025 12/20/2024, 10/20, 06/11/2024, Additional history exists Zoster Vaccine Completed 07/01/2024, 04/15/2024 Hepatitis B Screening Completed 12/20/2024 Hepatitis C Screening Completed 12/20/2024 , 06/11/2024, 05/28/2023 Procedures Procedure Name Priority Date/Time Associated Diagnosis [...] current use of insulin (HCC) POCT GLUCOSE 13410 Routine 12/12/2024 8: 49 AM CDT Type [...] * T-SPOT.TB Blood (12/20/2024 12:16 PM CDT) [facility] [address] T-SPOT.TB Negative SeeBelow Comment: Normal Value: Negative [...] test. T-SPOT.TB Panel A Spot Count 0 [facility] T-SPOT.TB Panel B Spot Count 0 [facility] T-SPOT.TB Negative Control Passed [facility] T-SPOT.TB Positive Control Passed [facility] Comment: Test Performed at: [facility] [address] [place] [address] CHIN VELAZQUEZ,PHD Blood 12/20/2024 12:1 6 PM CDT 12/20/2024 1:03 PM CDT us Thu Espino MD LAB MICROBIOLOGY - GENERAL ORDER NINO Final Result [facility] Department [place] [address] * eGFR (12/20/2024 12:16 PM CDT) eGFR [...] MD LAB BLOOD ORDERABLES Final Resul t [facility] Department [place] [address] * Differential, auto (12/20/2024 12:16 PM CDT) Neutrophil abs 6.46 1.50 - 6.50 K/cumm Imm gran abs 0.04 0.00 - 0.10 K/cumm [facility] Lymphocyte abs 2.40 0.80 - 3.30 K/cumm [facility] Monocyte abs 0.61 0.20 - 0.80 K/cumm [facility] Eosinophil abs 0.24 0.00 - 0.50 K/cumm [facility] Basophil abs 0.02 0.00 - 0.10 K/cumm [facility] Neutrophil pct 66.1 % [facility] Comment: Interpretive Data Percent cell count reference ranges are not reported, since discordance with absolute values may lead to misinterpretation of CBC data. Current Interpretive Data was last revised on 2017. Imm gran pct 0.4 % [facility] Comment: Interpretive Data Percent cell count reference ranges are not reported, since discordance with absolute values may lead to misinterpretation of CBC data. Current Interpretive Data was last revised on 2017. Lymphocyte pct 24.6 % [facility] Comment: Interpretive Data Percent cell count reference ranges are not reported, since discordance with absolute values may lead to misinterpretation of CBC data. Current Interpretive Data was last revised on 2017. Monocyte pct 6.2 % [facility] Comment: Interpretive Data Percent cell count reference ranges are not reported, since discordance with absolute values may lead to misinterpretation of CBC data. Current Interpretive Data was last revised on 2017. Eosinophil pct 2.5 % [facility] Comment: Interpretive Data Percent cell count reference ranges are not reported, since discordance with absolute values may lead to misinterpretation of CBC data. Current Interpretive Data was last revised on 2017. Basophil pct 0.2 % [facility] Comment: Interpretive Data Percent cell count reference ranges are not reported, since discordance with absolute values may lead to misinterpretation of CBC data. Current Interpretive Data was last revised on 2017. Blood 12/20/2024 12:1 6 PM CDT 12/20/2024 12:41 PM CDT Thu Espino MD LAB BLOOD ORDERABLES Final Resul t Performing Organization Address City/[facility] Co de Phone Number [facility] [place] [address] * HIV 1/2 Antibody plus p24 Antigen Blood (12/20/2024 12:16 PM CDT) Pathologist [facility] HIV 1/2 ab + p24 ag Nonreactive Nonreactive Comment:Nonreactive for HIV- 1 antigen and HIV-1/HIV-2 antibodies. No laboratory evidence of HIV infection. If acute HIV infection is suspected, consider testing for HIV-1 RNA. Current interpretive data was last revised on 22. Blood 12/20/2024 12:1 6 PM CDT 12/20/2024 12:41 PM CDT Thu Espino MD LAB MICROBIOLOGY - GENERAL ORDER NINO Final Result Performing Organization Address City/[facility] [place] [address] * (ABNORMAL) CBC with auto differential (12/20/2024 12:16 PM CDT) [facility] [address] WBC 9.77 3.80 - 9.90 K/cumm Hgb 14.7 11.9 - 15.5 g/dL [facility] Hct 42.1 35.6 - 45.5 % [facility] Plt 245 150 - 400 K/cumm [facility] MPV 9.6 9.1 - 12.3 fL [facility] RBC 4.34 3.90 - 5.20 M/cumm [facility] MCV 97.0(H) 81.3 - 96.4 fL [facility] MCH 33.9(H) 27.1 - 33.3 pg [facility] MCHC 34.9 32.3 - 35.7 g/dL [facility] RDW CV 12.3 11.1 - 14.9 % [facility] RDW SD 44.0 35.7 - 48.1 fL [facility] NRBC abs 0.00 0.00 - 0.01 K/cumm [facility] Blood 12/20/2024 12:1 6 PM CDT 12/20/2024 12:41 PM CDT us Thu Espino MD LAB BLOOD ORDERABLES Final Resul t Performing Organization Address City/[facility] Co de Phone Number [facility] [place] [address] * Hepatitis C antibody Blood (12/20/2024 12:16 PM CDT) Pathologist [facility] Hep C Ab Nonreactive Nonreactive Comment:Antibodies to HCV no t detected. Does NOT exclude the possibility of recent exposure to HCV. Current interpretive data was last revised on 22 Blood 12/20/2024 12:1 6 PM CDT 12/20/2024 12:41 PM CDT us Thu Espino MD LAB MICROBIOLOGY - GENERAL ORDER NINO Final Result Performing Organization Address [facility] Co de Phone Number [facility] [place] [address] * Hepatitis B core antibody, total Blood (12/20/2024 12:16 PM CDT) Pathologist [facility] Hep B core IgG/IgM Nonreactive Nonreactive Blood 12/20/2024 12:1 6 PM CDT 12/20/2024 12:41 PM CDT us Thu Espino MD LAB MICROBIOLOGY - GENERAL ORDER NINO Final Result Performing Organization Address City/[facility] Co de Phone Number [facility] [place] [address] * Hepatitis B surface antibody (immune status) Blood (12/20/2024 12:16 PM CDT) Pathologist [facility] HBsAb (immune status) Nonreactive Comment:This result is consi stent with a lack of immunity to Hepatitis B Virus when used in the setting of routine screening. Current interpretative data was last revised on 22 Blood 12/20/2024 12:1 6 PM CDT 12/20/2024 12:41 PM CDT us Thu Espino MD LAB MICROBIOLOGY - GENERAL ORDER NINO Final Result [facility] [place] [address] * Hepatitis B Surface Antigen Blood (12/20/2024 12:16 PM CDT) Pathologist [facility] HepBsAg Nonreactive Nonreactive Blood 12/20/2024 12:1 6 PM CDT 12/20/2024 12:41 PM CDT us Thu Espino MD LAB MICROBIOLOGY - GENERAL ORDER NINO Final Result Performing Organization Address City/[facility] Co de Phone Number [facility] [place] [address] * Erythrocyte sedimentation rate (12/20/2024 12:16 PM CDT) [facility] [address] Erythrocyte sedimentation rate 24 1 - 30 mm/hr Blood 12/20/2024 12:1 6 PM CDT 12/20/2024 12:41 PM CDT us Thu Espino MD LAB BLOOD ORDERABLES Final Resul t Performing Organization Address City/[facility] Co de Phone Number [facility] [place] [address] * CRP (acute phase) (12/20/2024 12:16 PM CDT) Pathologist [facility] CRP 3.1 <=10.0 mg/L Blood 12/20/2024 12:1 6 PM CDT 12/20/2024 12:41 PM CDT us Thu Espino MD LAB BLOOD ORDERABLES Final Resul t [facility] Department [place] [address] * (ABNORMAL) Comprehensive metabolic panel (12/20/2024 12:16 PM CDT) Sodium 141 135 - 145 mmol/L Potassium, pl 4.1 3.3 - 4.9 mmol/L [facility] Chloride 104 97 - 110 mmol/L [facility] CO2 25 22 - 32 mmol/L [facility] Anion gap 12 2 - 15 mmol/L [facility] BUN 14 6 - 25 mg/dL [facility] Creatinine 0.80 0.60 - 1.10 mg/dL [facility] Glucose 159 70 - 199 mg/dL [facility] Comment: Interpretive Data Fasting glucose >/= 126 [...] 2022. Calcium 9.6 8.5 - 10.3 mg/dL [facility] Bilirubin, total 0.8 0.1 - 1.2 mg/dL [facility] Protein, pl 9.1(H) 6.5 - 8.5 g/dL [facility] Albumin 4.7 3.5 - 5.0 g/dL [facility] Alk phos 93 40 - 130 Units/L [facility] ALT 175(H) 7 - 45 Units/L [facility] AST 130(H) 10 - 45 Units/L [facility] Blood 12/20/2024 12:1 6 PM CDT 12/20/2024 12:41 PM CDT Thu Espino MD LAB BLOOD ORDERABLES Final Resul t [facility] Department [place] [address] * (ABNORMAL) POCT hemoglobin A1c (12/12/2024 8:50 AM CDT) Hemoglobin A1C, POC 7.1(A) 4.0 - 5.6 % Blood 12/12/2024 8:50 AM CDT Leila Rodriguez MD POINT OF CARE TEST ORDERAB LES Final Result * POCT glucose (12/12/2024 8:49 AM CDT) Pathologist [facility] Glucose Blood, POC 200 Normal Fasting 70 [...] ORDERABLES Final Resul t Performing Organization Address City/[facility] Co de Phone Number [facility] * (ABNORMAL) Erythrocyte sedimentation rate (11/04/2024 11:47 AM CDT) Erythrocyte Sedimentation Rate 33(H) <30 mm/hr [facility] Blood 11/04/2024 11:4 7 AM CDT 11/04/2024 12:46 PM CDT us Thu Espino MD LAB BLOOD ORDERABLES Final Resul t Performing Organization Address City/[facility] Co de Phone Number [facility] * CRP (acute phase) (11/04/2024 11:47 AM CDT) C-Reactive Protein, Acute <3.0 <5.0 mg/L [facility] Blood 11/04/2024 11:4 7 AM CDT 11/04/2024 12:46 PM CDT Thu Espino MD LAB BLOOD ORDERABLES Final Resul t Performing Organization Address [facility] Co de Phone Number [facility] [...] Final Resul t Performing Organization Address [facility]/ZIP Co de Phone Number [facility] [...] LAB BLOOD ORDERABLES Final Resul t [facility] * Albumin Creatinine Ratio, Urine (08/30/2024 9:13 AM CDT) Pathologist [facility] Albumin Ur 13.5 mg/L Comment: Interpretive Data No reference range established. Current interpretive data was last revised 2018. Creatinine Ur 117.6 mg/dL [facility] Comment: Interpretive Data No reference range established. Current interpretive data was last revised 2018. Albumin Creatinine Ratio, Ur 11 1 - 29 mg/g [facility] Urine 08/30/2024 9:13 AM CDT 08/30/2024 9:45 AM CDT Jessica FELIZ LAB URINE ORDERABLES Franny navin Result [facility] Department of Laboratories [place] [id number] * Pap and High Risk HPV, reflex to Genotyping (12/16/2021 9:34 AM CDT) Thin prep (Pap test) 12/16/2021 9:34 AM CDT 12/17/2021 9:34 AM CDT Narrative PATHOLOGY [facility] - 12/19/2021 9:55 AM CDT [facility] Department of Pathology [address] [place] [id number] Final Report with Addendum Note to [...] the details. Patient Name: SOPHIE ROJAS Address: [address] [place] [address] Gender: F : 1975 (Age: 46) Service: Laboratory Location: [facility] #: [id number] Patient Type: [facility] SPECIMEN Taken: 12/16/2021 Received: 12/17/2021 Accessioned:: 12/18/2021 Reported: 12/19/2021 Physician(s): Hilda Reveles M.D. [facility] Diagnosis: Source of Specimen: SCREENING THIN PREP IMAGED PAP w/ HPV Specimen Adequacy: - Satisfactory for evaluation; endocervical/transformation zone component present General Category: - Negative for intraepithelial lesion or malignancy Caroline [place], CT(ASCP) Report Electronically Reviewed and Signed Out By [...] determined by the Surgical Pathology Department at [facility] as part of an ongoing quality improvement analyst program and in compliance with federally mandated [...] characteristics determined by the Surgical Pathology Department [facility]. It has not been cleared or approved by the U. S. Food and Drug Administration. Hilda Reveles MD LAB CYTOLOGY ORDERABLES Final Re sult PATHOLOGY [facility] from Last 3 Months or Most Recently Relevant to Health Maintenance Insurance MEDICARE IDPR [facility] MEDICARE MEDICARE [facility] Care Teams Non Destructive Evaluation Technician Relationship Specialty Start Date End Date Devin Arredondo DO PCP - General Internal Medicine 05/09/20
--- NOTE | 2025-01-03 11:00 | NEURO_ITS ---
Impression: # Insulin dependent complains of numbness of hand ? # No Carpal Tunnel Syndrome ? # No Ulnar Neuropathy ? # Normal Needle/ EMG exam ? # Clinical correlations recommended Nerve Conduction Studies ?Stim Site NR Peak (ms) P-T Amp (?V) Site1 Site2 Delta-P (ms) Dist (cm) Jarod (m/s) Left Median Anti Sensory (2-3nd Digit) Wrist ? 2.7 57.6 Wrist 2-3nd Digit 2.7 14.0 52 Wrist ? 2.8 47.1 Wrist 2-3nd Digit 2.7 14.0 52 Left Radial Anti Sensory (Base 1st Digit) Wrist ? 1.9 28.2 Wrist Base 1st Digit 1.9 0.0 Left Ulnar Anti Sensory (5th Digit) Wrist ? 2.0 49.6 Wrist 5th Digit 2.0 14.0 70 ?Stim Site NR Onset (ms) O-P Amp (mV) Site1 Site2 Delta-0 (ms) Dist (cm) Jarod (m/s) Left Median Motor (Abd Poll Brev) Wrist ? 2.9 1.9 Elbow Wrist 5.8 31.0 53 Elbow ? 8.7 1.2 Left Ulnar Motor (Abd Dig Minimi) Wrist ? 1.6 8.3 A Elbow Wrist 5.7 33.0 58 A Elbow ? 7.3 7.8 B Elbow Wrist 4.5 25.0 56 B Elbow ? 6.1 7.8 Electromyography ?Side Muscle Nerve Root Ins Act Fibs Amp Dur Recrt Comment Left 1stDorInt Ulnar C8-T1 Nml Nml Nml Nml Nml Left Ext Indicis Radial (Post Int) C7-8 Nml Nml Nml Nml Nml Left Ext Digitorum Radial (Post Int) C7-8 Nml Nml Nml Nml Nml Left BrachioRad Radial C5-6 Nml Nml Nml Nml Nml Left PronatorTeres Median C6-7 Nml Nml Nml Nml Nml Left Abd Poll Brev Median C8-T1 Nml Nml Nml Nml Nml Left ABD Dig Min Ulnar C8-T1 Nml Nml Nml Nml Nml Left FlexPolLong Median (Ant Int) C7-8 Nml Nml Nml Nml Nml Left Abd Poll Long Radial (Post Int) C7-8 Nml Nml Nml Nml Nml
== END 2025-01-03 09:19 | disposition home or self-care (01) ==
PROVIDERS: PCP Internal Medicine; Visit Provider Plastic Surgery
DX: G56.22 Lesion of ulnar nerve, left upper limb (principal)
CPT/HCPCS: 95886; 95909

== ENCOUNTER 2025-01-24 21:33 | Emergency (ER) | payer MEDICARE, MEDICAID, SELFPAY ==
--- NOTE | ~2025-01-24 | US_ITS ---
Pelvic ultrasound. Clinical History: Right ovarian torsion Technique: Realtime transabdominal scanning of the pelvis was performed. Patient refused transvaginal imaging. Color flow Doppler and Doppler spectral analysis were performed. Findings: The uterus is not well evaluated or visualized. The right ovary is not visualized. No significant right ovarian or adnexal mass is seen. The left ovary measures 3.5 x 2.3 x 2.8 cm. No significant left ovarian or adnexal mass is seen. There is no evidence of free fluid in the cul de sac. Impression: Uterus and right ovary are not clearly visualized. Left ovary grossly unremarkable, though suboptimally seen. Reviewed, dictated and finalized at location . Impression: Uterus and right ovary are not clearly visualized. Left ovary grossly unremarkable, though suboptimally seen.
--- NOTE | ~2025-01-24 | CT_ITS ---
CT of the Abdomen and Pelvis: Indication: Abdominal pain Technique: 2.5 mm axial scans were obtained through the abdomen and pelvis following intravenous adm inistration of 100 cc of Omnipaque 350. Dose reduction technique was used on this scan by utilizing a utomated exposure control and iterative reconstruction technique. The dose-length product (DLP) was 1 000.24 mGy-cm. Findings: Scans through the lung bases are clear. Moderate hiatal hernia present. Diffuse hepatic steatosis noted. The spleen, pancreas, gallbladder, adrenals and kidneys are within n ormal limits. No evidence of aortic aneurysm. No lymphadenopathy. No bowel obstruction or bowel wall thickening. There is no evidence to suggest acute appendicitis. Images through the pelvis were performed. Urinary bladder unremarkable. No pelvic mass seen. No ascit es. Impression: Diffuse hepatic steatosis. Moderate hiatal hernia. Reviewed, dictated and finalized at location . Impression: Diffuse hepatic steatosis. Moderate hiatal hernia.
--- OUTSIDE RECORDS SUMMARY | 2025-01-24 21:35 | XMS_ITS | Clinical Summary ---
Author Organization [facility] Address [address] [place] [address] Care Team Providers Care It Security Project Manager Name Role Phone Devin Arredondo DO Primary Care Provider [phone] Allergies No known active allergies Medications famotidine (PEPCID) 20 mg tablet 05/10/20 20 Active glucagon 1 mg injection INJECT 1 MG UNDER THE SKIN ONCE NEEDED. MAY REPEAT IN 15 MINS IF NEEDED WITH NEW DECIVE 07/03/19 21 Active atorvastatin (LIPITOR) 80 mg tablet Take [...] complication, with long-term current use of insulin USE TO INJECT INSULIN 3 TIMES PER DAY. 200 each 3 10/28/19 24 Active glucagon (Gvoke HypoPen 1-Pack) 1 mg/0.2 mL auto-injectorInd ications:Type 2 diabetes mellitus with other specified complication, with long-term current use of insulin Use as directed for severe hypoglycemia 2 mL 2 06/02/20 24 Active insulin degludec (TRESIBA) 100 unit/mL (3 mL) pen for injectionIndicat ions:Type 2 diabetes mellitus with other specified complication, with long-term current use of insulin INJECT 33 UNITS ONCE DAILY IN CASE OF PUMP FAILURE 15 mL 2 09/08/19 25 Active citalopram (CeleXA) 40 mg tablet Take 1 tablet (40 mg total) by mouth daily 11/13/19 Active tirzepatide (Mounjaro) 7.5 mg/0.5 mL pen injector injection Inject 0.5 mL (7.5 mg total) under the skin every 7 days 2 mL 3 12/13/19 Active insulin aspart (NovoLOG) 100 unit/mL vial for injectionIndicat ions:Type 2 diabetes mellitus with other specified complication, with long-term current use of insulin Use in insulin pump. Max daily dose 90 units. 90 mL 3 12/13/19 25 Active montelukast (SINGULAIR) 10 mg tablet 06/06/20 21 025 Discontinu ed(Patient Reported) sertraline (ZOLOFT) 25 mg tablet Take 1 tablet (25 mg total) by mouth daily 12/26/19 22 025 Discontinu ed(Patient Reported) varenicline (CHANTIX) 1 mg tablet Take 1 tablet (1 mg total) by mouth 2 (two) times a day 03/13/20 22 025 Discontinu ed(Patient Reported) citalopram (CeleXA) 20 mg tablet Take 1 tablet (20 mg total) by mouth daily 05/27/20 22 025 Discontinu ed(Alterna te therapy) losartan (COZAAR) 25 mg tablet TAKE 1 TABLET BY MOUTH EVERY DAY. PLEASE MAKE AN APPT FOR FURTHER REFILLS 90 tablet 1 01/11/20 24 025 Discontinu ed(No longer taking - Do not display on AVS) bisacodyL 5 mg tabletIndication s:Constipation, unspecified constipation type Take 10 mg by mouth daily 10 tablet 06/02/20 24 025 Discontinu ed(Patient Reported) upadacitinib 15 mg tablet extended release 24 hr Take 15 mg by mouth daily 30 tablet 11 06/13/20 24 025 Discontinu ed(Therapy completed) sulfaSALAzine (AZULFIDINE) 500 mg tabletIndication s:Rheumatoid arthritis involving multiple sites with positive rheumatoid factor (HCC) Take 3 tablets (1,500 mg total) by mouth 2 (two) times a day 360 tablet 11/05/19 25 025 Discontinu ed(Patient Reported) predniSONE (DELTASONE) 5 mg tablet Take 4 tablets (20 mg) by mouth daily for 7 days, THEN 3 tablets (15 mg) daily for 7 days, THEN 2 tablets (10 mg) daily for 7 days, THEN 1 tablet (5 mg) daily for 7 days. 70 tablet 12/22/19 25 025 Active Problems Problem Noted Date Diagnosed Date [...] activity Assessment & Plan (07/28/2022 9:22 AM PNEUMATIC JACKETER): -Last labs dated 12/27/21 : TC 176 [...] date Assessment & Plan (07/30/2022 1:47 PM PNEUMATIC JACKETER): -Currently taking Ozempic and Metformin, using Tandem [...] Encounters Date Type Department Care Team Description 01/13/2025 9:30 AM CDT Infusion [facility] Out[facility]fusion [facility] [address] [place] [phone] Rheumatoid arthritis, involving unspecified site, unspecified whether rheumatoid factor present (HCC) (Primary Dx) 01/09/2025 Orders Only [facility] Outpatient [facility]fusion Center [address] [place] [address] [address] [place] [phone] Emaneul Garcia RN 12/26/2024 10:30 AM CDT Infusion [facility] Outpatient Infusion Center [facility] [place] [phone] Rheumatoid arthritis, involving unspecified site, unspecified whether rheumatoid factor present (HCC) (Primary Dx) 12/26/2024 Orders Only [facility] [address] [place] [address] [address] [place] [phone] Dwight Valdez RN 12/20/2024 2:[address] [facility] [address] [place] [phone] High risk medication use; Rheumatoid arthritis, involving unspecified site, unspecified whether rheumatoid factor present (HCC) 12/20/2024 11:15 AM CDT Office Visit [facility] Rheumatology [address] [place] [address] [facility] 5th [place] [address] [place] [phone] Thu Espino MD High risk medication use (Primary Dx); Rheumatoid arthritis, involving unspecified site, unspecified whether rheumatoid factor present (HCC) 12/14/2024 Telephone [facility] Endocrinology Metabolism and Lipid [address] [facility] 5th [place] [address] [place] [address] Lesia Soria RMA Prior Auth (TRAY BALDERAS PLEASE) 12/12/2024 9:20 AM CDT Office Visit [facility] Endocrinology Metabolism and Lipid [address] [facility] 13th [place] [address] [place] [address] Leila Rodriguez MD Type 2 diabetes mellitus with other specified complication, with long-term current use of insulin (HCC) (Primary Dx); Nonalcoholic fatty liver disease; Class 1 obesity due to excess calories with serious comorbidity and body mass index (BMI) of 32.0 to 32.9 in adult; Mixed hyperlipidemia; Hypertension, unspecified type 11/04/2024 11:40 AM CDT Lab [facility] Endocrinology Metabolism and Lipid [address] [facility] 5th [place] [address] [place] [phone] High risk medication use; Rheumatoid arthritis involving multiple sites with positive rheumatoid factor (HCC) 11/04/2024 10:45 AM CDT Office Visit [facility] Rheumatology [address] [facility] 5th [place] [address] [place] [phone] Thu Espino MD High risk medication use [...] the money to buy more. Never true 01/14/20 Within the past 12 months, t he food you bought just didn't last and you didn't have money to get more. Never true 01/13/2025 Personal Safety Answer Date Recorded Have you ever been in or are you currently in a harmful physical or emotional relationship or is someone making you feel afraid or unsafe? Denies 01/13/2025 Comments No Sex and Gender Information Value Date Recorded Sex Assigned at Not on file Legal Sex Female 8:30 PM PNEUMATIC JACKETER Gender Identity Not on file Sexual Orientation Not on file Obstetrics History Para Term AB IAB SAB Ectopic Multiple Livin g Live Births 3 3 Date Outcome GA Total Labor Labor/2nd/3rd Weight Sex Type Anes PTL Valarie A1 A5 Name Clin Para Para Para Last Filed Vital Signs Vital Sign Reading Time Taken Comments Blood Pressure 132/66 01/13/2025 12:10 PM CDT Pulse 69 01/13/2025 12:10 PM CDT Temperature 35.7 C (96.3 F) 01/13/2025 9:28 AM CDT Respiratory Rate 18 01/13/2025 9:28 AM CDT Oxygen Saturation 98% 01/13/2025 12:10 PM CDT Inhaled Oxygen Concentration - - Weight 90.7 kg (200 lb) 01/13/2025 9:28 AM CDT Height 167.6 cm (5' 6) 01/13/2025 9:28 AM CDT Body Mass Index 32.28 01/13/2025 9:28 AM CDT Plan of Treatment Health Maintenance [...] current use of insulin (HCC) POCT GLUCOSE 21958 Routine 12/12/2024 8: 49 AM CDT Type [...] * T-SPOT.TB Blood (12/20/2024 12:16 PM CDT) [facility] T-SPOT.TB Negative SeeBelow Comment: Normal Value: Negative [...] test. T-SPOT.TB Panel A Spot Count 0 [facility] T-SPOT.TB Panel B Spot Count 0 [facility] T-SPOT.TB Negative Control Passed [facility] T-SPOT.TB Positive Control Passed [facility] Comment: Test Performed at: [facility] [address] [place] [phone] CHIN VELAZQUEZ,PHD Blood 12/20/2024 12:1 6 PM CDT 12/20/2024 1:03 PM CDT Thu Espino MD LAB MICROBIOLOGY - GENERAL ORDER NINO Final Result Performing Organization Address City/[facility] Co de Phone Number [facility] [place] [address] * eGFR (12/20/2024 12:16 PM CDT) eGFR [...] 6 PM CDT 12/20/2024 12:50 PM CDT Thu Espino MD LAB BLOOD ORDERABLES Final Resul t Performing Organization Address City/[facility]/ZIP Co de Phone Number [facility] [place] [address] * Differential, auto (12/20/2024 12:16 PM CDT) Neutrophil abs 6.46 1.50 - 6.50 K/cumm Imm gran abs 0.04 0.00 - 0.10 K/cumm [facility] Lymphocyte abs 2.40 0.80 - 3.30 K/cumm [facility] Monocyte abs 0.61 0.20 - 0.80 K/cumm [facility] Eosinophil abs 0.24 0.00 - 0.50 K/cumm [facility] Basophil abs 0.02 0.00 - 0.10 K/cumm [facility] Neutrophil pct 66.1 % [facility] Comment: Interpretive Data Percent cell count reference ranges are not reported, since discordance with absolute values may lead to misinterpretation of CBC data. Current Interpretive Data was last revised on 2017. Imm gran pct 0.4 % [facility] Comment: Interpretive Data Percent cell count reference ranges are not reported, since discordance with absolute values may lead to misinterpretation of CBC data. Current Interpretive Data was last revised on 2017. Lymphocyte pct 24.6 % [facility] Comment: Interpretive Data Percent cell count reference ranges are not reported, since discordance with absolute values may lead to misinterpretation of CBC data. Current Interpretive Data was last revised on 2017. Monocyte pct 6.2 % [facility] Comment: Interpretive Data Percent cell count reference ranges are not reported, since discordance with absolute values may lead to misinterpretation of CBC data. Current Interpretive Data was last revised on 2017. Eosinophil pct 2.5 % [facility] Comment: Interpretive Data Percent cell count reference ranges are not reported, since discordance with absolute values may lead to misinterpretation of CBC data. Current Interpretive Data was last revised on 2017. Basophil pct 0.2 % [facility] Comment: Interpretive Data Percent cell count reference ranges are not reported, since discordance with absolute values may lead to misinterpretation of CBC data. Current Interpretive Data was last revised on 2017. Blood 12/20/2024 12:1 6 PM CDT 12/20/2024 12:41 PM CDT us Thu Espino MD LAB BLOOD ORDERABLES Final Resul t [facility] Department [place] [address] * HIV 1/2 Antibody plus p24 Antigen Blood (12/20/2024 12:16 PM CDT) [facility] HIV 1/2 ab + p24 ag Nonreactive [...] ORDER NINO Final Result Performing Organization Address City/[facility] Co de Phone Number [facility] [place] [address] * (ABNORMAL) CBC with auto differential (12/20/2024 12:16 PM CDT) [facility] WBC 9.77 3.80 - 9.90 K/cumm Hgb 14.7 11.9 - 15.5 g/dL [facility] Hct 42.1 35.6 - 45.5 % [facility] Plt 245 150 - 400 K/cumm [facility] MPV 9.6 9.1 - 12.3 fL [facility] RBC 4.34 3.90 - 5.20 M/cumm [facility] MCV 97.0(H) 81.3 - 96.4 fL [facility] MCH 33.9(H) 27.1 - 33.3 pg [facility] MCHC 34.9 32.3 - 35.7 g/dL [facility] RDW CV 12.3 11.1 - 14.9 % [facility] RDW SD 44.0 35.7 - 48.1 fL [facility] NRBC abs 0.00 0.00 - 0.01 K/cumm [facility] Blood 12/20/2024 12:1 6 PM CDT 12/20/2024 12:41 PM CDT Thu Espino MD LAB BLOOD ORDERABLES Final Resul t Performing Organization Address City/[facility]/[place] [address] * Hepatitis C antibody Blood (12/20/2024 12:16 PM CDT) Hep C Ab Nonreactive Nonreactive Comment:Antibodies to HCV no t detected. Does NOT exclude the possibility of recent exposure to HCV. Current interpretive data was last revised on 22 Blood 12/20/2024 12:1 6 PM CDT 12/20/2024 12:41 PM CDT us Thu Espino MD LAB MICROBIOLOGY - GENERAL ORDER NINO Final Result Performing Organization Address City/[facility] [place] [address] * Hepatitis B core antibody, total Blood (12/20/2024 12:16 PM CDT) Pathologist [facility] Hep B core IgG/IgM Nonreactive Nonreactive Blood 12/20/2024 12:1 6 PM CDT 12/20/2024 12:41 PM CDT us Thu Espino MD LAB MICROBIOLOGY - GENERAL ORDER NINO Final Result Performing Organization Address City/[facility] Co de Phone Number [facility] [place] [address] * Hepatitis B surface antibody (immune status) Blood (12/20/2024 12:16 PM CDT) Pathologist [facility] HBsAb (immune status) Nonreactive Comment:This result is consi stent with a lack of immunity to Hepatitis B Virus when used in the setting of routine screening. Current interpretative data was last revised on 22 Blood 12/20/2024 12:1 6 PM CDT 12/20/2024 12:41 PM CDT us Thu Espino MD LAB MICROBIOLOGY - GENERAL ORDER NINO Final Result Performing Organization Address City/[facility]/ZIP Co de Phone Number [facility] [place] [address] * Hepatitis B Surface Antigen Blood (12/20/2024 12:16 PM CDT) HepBsAg Nonreactive Nonreactive Blood 12/20/2024 12:1 6 PM CDT 12/20/2024 12:41 PM CDT us Thu Espino MD LAB MICROBIOLOGY - GENERAL ORDER NINO Final Result Performing Organization Address [facility] [place] [address] * Erythrocyte sedimentation rate (12/20/2024 12:16 PM CDT) Pathologist [facility] Erythrocyte sedimentation rate 24 1 - 30 mm/hr Blood 12/20/2024 12:1 6 PM CDT 12/20/2024 12:41 PM CDT us Thu Espino MD LAB BLOOD ORDERABLES Final Resul t Performing Organization Address [facility] Co de Phone Number [facility] [place] [address] * CRP (acute phase) (12/20/2024 12:16 PM CDT) Pathologist [facility] CRP 3.1 <=10.0 mg/L Blood 12/20/2024 12:1 6 PM CDT 12/20/2024 12:41 PM CDT us Thu Espino MD LAB BLOOD ORDERABLES Final Resul t Performing Organization Address [facility] Co de Phone Number [facility] [place] [address] * (ABNORMAL) Comprehensive metabolic panel (12/20/2024 12:16 PM CDT) Pathologist [facility] Sodium 141 135 - 145 mmol/L Potassium, pl 4.1 3.3 - 4.9 mmol/L [facility] Chloride 104 97 - 110 mmol/L [facility] CO2 25 22 - 32 mmol/L [facility] Anion gap 12 2 - 15 mmol/L [facility] BUN 14 6 - 25 mg/dL [facility] Creatinine 0.80 0.60 - 1.10 mg/dL [facility] Glucose 159 70 - 199 mg/dL [facility] Comment: Interpretive Data Fasting glucose >/= 126 [...] classification and Diagnosis of Diabetes Diabetes Care 202; 46: S19-S40. Current interpretive data was last revised 2022. Calcium 9.6 8.5 - 10.3 mg/dL [facility] Bilirubin, total 0.8 0.1 - 1.2 mg/dL [facility] Protein, pl 9.1(H) 6.5 - 8.5 g/dL [facility] Albumin 4.7 3.5 - 5.0 g/dL [facility] Alk phos 93 40 - 130 Units/L [facility] ALT 175(H) 7 - 45 Units/L [facility] AST 130(H) 10 - 45 Units/L [facility] Blood 12/20/2024 12:1 6 PM CDT 12/20/2024 12:41 PM CDT us Thu Espino MD LAB BLOOD ORDERABLES Final Resul t [facility] [place] [address] * (ABNORMAL) POCT hemoglobin A1c (12/12/2024 8:50 AM CDT) Pathologist [facility] Hemoglobin A1C, POC 7.1(A) 4.0 - 5.6 % Blood 12/12/2024 8:50 AM CDT us Leila Rodriguez MD POINT OF CARE TEST ORDERAB LES Final Result * POCT glucose (12/12/2024 8:49 AM CDT) [facility] Glucose Blood, POC 200 Normal Fasting 70 - 100, Random <200 mg/dL Blood 12/12/2024 8:49 AM CDT us Leila Rodriguez MD POINT OF CARE TEST ORDERAB LES Final Result * (ABNORMAL) CBC with auto differential (11/04/2024 11:47 AM CDT) [facility] White Blood Count 10.4 3.6 - 11.2 [...] ORDERABLES Final Resul t Performing Organization Address City/[facility] Co de Phone Number [facility] * (ABNORMAL) Erythrocyte sedimentation rate (11/04/2024 11:47 AM CDT) Erythrocyte Sedimentation Rate 33(H) <30 mm/hr [facility] Blood 11/04/2024 11:4 7 AM CDT 11/04/2024 12:46 PM CDT us Thu Espino MD LAB BLOOD ORDERABLES Final Resul t Performing Organization Address City/[facility] Co de Phone Number [facility] * CRP (acute phase) (11/04/2024 11:47 AM CDT) C-Reactive Protein, Acute <3.0 <5.0 mg/L [facility] Blood 11/04/2024 11:4 7 AM CDT 11/04/2024 12:46 PM CDT us Thu Espino MD LAB BLOOD ORDERABLES Final Resul t Performing Organization Address City/State/[facility] Co de Phone Number [facility] * (ABNORMAL) [...] AM CDT 11/04/2024 12:[address] [facility] - 11/04/2024 2:24 PM CDT [...] MD LAB BLOOD ORDERABLES Final Resul t [facility] * (ABNORMAL) [...] MD LAB BLOOD ORDERABLES Final Resul t [facility] * Albumin Creatinine Ratio, Urine (08/30/2024 9:13 AM CDT) Albumin Ur 13.5 mg/L Comment: Interpretive Data No reference range established. Current interpretive data was last revised 2018. Creatinine Ur 117.6 mg/dL [facility] Comment: Interpretive Data No reference range established. Current interpretive data was last revised 2018. Albumin Creatinine Ratio, Ur 11 1 - 29 mg/g [facility] Urine 08/30/2024 9:13 AM CDT 08/30/2024 9:45 AM CDT Jesscia FELIZ LAB URINE ORDERABLES Franny navin Result [facility] [place] [address] * Pap and High Risk HPV, reflex to Genotyping (12/16/2021 9:34 AM CDT) Thin prep (Pap test) 12/16/2021 9:34 AM CDT 12/17/2021 9:34 AM CDT Narrative PATHOLOGY [facility] - 12/19/2021 9:55 AM CDT [facility] Department of Pathology [address] [place], [place] [id number] Final Report with Addendum Note to Patients: [...] details. Patient Name: SOPHIE ROJAS Address: [address] [place] [address] Gender: F : 1975 (Age: 46) Service: Laboratory Location: [facility] #: [id number] Patient Type: [facility] SPECIMEN Taken: 12/16/2021 Received: 12/17/2021 Accessioned:: 12/18/2021 Reported: 12/19/2021 Physician(s): Hilda Reveles M.D. [facility] Diagnosis: Source of Specimen: SCREENING THIN PREP [...] determined by the Surgical Pathology Department at [facility] as part of an ongoing quality assurance project manager program and in compliance with federally mandated [...] characteristics determined by the Surgical Pathology Department [facility]. It has not been cleared or approved by the U. S. Food and Drug Administration. Hilda Reveles MD LAB CYTOLOGY ORDERABLES Final Re sult PATHOLOGY [facility] from Last 3 Months or Most Recently Relevant to Health Maintenance Insurance MEDICARE IDPA [facility] MEDICARE MEDICARE IDIN Care Teams It Security Project Manager Relationship Specialty Start Date End Date Devin Arredondo DO PCP - General Internal Medicine 05/09/20
--- OUTSIDE RECORDS SUMMARY | 2025-01-24 21:35 | XMS_ITS | Encounter Summary ---
Author Organization [facility] Address [address] [place] [address] Phone Care Team Providers Care Organic Gardening Teacher Name Role Phone Devin Arredondo DO Primary Care Provider [phone] Encounter Details Date Type Department Care Team (Latest Contact Info) Description 04/10/2020 Orders Only [facility] EML Scanning, Provider Social History Tobacco Use Types Packs/Day Years Used Date Smoking Tobacco: Never Assessed Comments Unknown Sex and Gender Information Value Date Recorded Sex Assigned at Not on file Legal Sex Female 8:30 PM CONSTRUCTION ENGINEERING MANAGER Gender Identity Not on file Sexual [...] on filedocumented in this encounter Care Teams Organic Gardening Teacher Relationship Specialty Start Date End Date Devin Arredondo DO PCP - General Internal Medicine 05/09/20 documented as of this encounter
--- OUTSIDE RECORDS SUMMARY | 2025-01-24 21:35 | XMS_ITS | Referral Summary ---
Author Organization [facility] Address [address] [place] [phone] Care Team Providers Care Office Auditor Name Role Phone Devin Arredondo DO Primary Care Provider +1- [phone] Encounters Date Type Department Care Team Description 01/13/2025 9:[address] [facility] [address] [place] [phone] Rheumatoid arthritis, involving unspecified site, unspecified whether rheumatoid factor present (HCC) (Primary Dx) 01/09/[address] [facility]fusion [facility] [address] [place] [phone] Emanuel Garcia, JESSICA 12/26/2024 10:[address] [facility] [address] [place] [phone] Rheumatoid arthritis, involving unspecified site, unspecified whether rheumatoid factor present (HCC) (Primary Dx) 12/26/[address] [facility] [address] [place] [phone] Dwight Valdez, JESSICA 12/20/2024 2:15 PM CDT Lab [facility] Advanced [facility] Advanced Medicine ([facility]) [address] [place] [phone] High risk medication use; Rheumatoid arthritis, involving unspecified site, unspecified whether rheumatoid factor present (HCC) 12/20/2024 11:15 AM CDT Office Visit [facility] Rheumatology [address] [place] [address] [place] [phone] Thu Espino MD High risk medication use (Primary Dx); Rheumatoid arthritis, involving unspecified site, unspecified whether rheumatoid factor present (HCC) 12/14/2024 Telephone [facility] Endocrinology Metabolism and Lipid [address] [place] [address] [place] [phone] Lesia Soria RMA Prior Auth (TRAY BALDERAS PLEASE) 12/12/2024 9:20 AM CDT Office Visit [facility] Endocrinology Metabolism and Lipid [address] 13[address] [place] [address] [place] [phone] Leila Rodriguez MD Type 2 diabetes mellitus with other specified complication, with long-term current use of insulin (HCC) (Primary Dx); Nonalcoholic fatty liver disease; Class 1 obesity due to excess calories with serious comorbidity and body mass index (BMI) of 32.0 to 32.9 in adult; Mixed hyperlipidemia; Hypertension, unspecified type 11/04/2024 11:40 AM CDT Lab [facility] Endocrinology Metabolism and Lipid [address] [place] [address] [place] [phone] High risk medication use; Rheumatoid arthritis involving multiple sites with positive rheumatoid factor (HCC) 11/04/2024 10:45 AM CDT Office Visit [facility] Rheumatology [address] [place] [address] [place] [phone] Thu Espino MD High risk medication use [...] mouth 2 (two) times a day 06/10/20 Active pen needle, diabetic (BD Ultra-Fine Heather [...] (40 mg total) by mouth daily 11/13/19 25 Active tirzepatide (Mounjaro) 7.5 mg/0.5 mL pen injector injection Inject 0.5 mL (7.5 mg total) under the skin every 7 days 2 mL 3 12/13/19 25 Active insulin aspart (NovoLOG) 100 unit/mL [...] activity Assessment & Plan (07/28/2022 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 T-SPOT.TB Panel A Spot Count 0 [facility] T-SPOT.TB Panel B Spot Count 0 [facility] T-SPOT.TB Negative Control Passed [facility] T-SPOT.TB Positive Control Passed [facility] Comment: Test Performed at: [facility] [address] [place] [address] CHIN VELAZQUEZ,PHD Blood 12/20/2024 12:1 6 PM CDT 12/20/2024 1:03 PM CDT us Thu Espino MD LAB MICROBIOLOGY - GENERAL ORDER NINO Final Result Performing Organization Address City/[facility]/ZIP Co de Phone Number [facility] Department [place] [address] * eGFR (12/20/2024 12:16 PM CDT) eGFR [...] MD LAB BLOOD ORDERABLES Final Resul t [facility] Department [place] [address] * Differential, auto (12/20/2024 12:16 PM CDT) Neutrophil abs 6.46 1.50 - 6.50 K/cumm Imm gran abs 0.04 0.00 - 0.10 K/cumm [facility] Lymphocyte abs 2.40 0.80 - 3.30 K/cumm [facility] Monocyte abs 0.61 0.20 - 0.80 K/cumm [facility] Eosinophil abs 0.24 0.00 - 0.50 K/cumm [facility] Basophil abs 0.02 0.00 - 0.10 K/cumm [facility] Neutrophil pct 66.1 % [facility] Comment: Interpretive Data Percent cell count reference ranges are not reported, since discordance with absolute values may lead to misinterpretation of CBC data. Current Interpretive Data was last revised on 2017. Imm gran pct 0.4 % [facility] Comment: Interpretive Data Percent cell count reference ranges are not reported, since discordance with absolute values may lead to misinterpretation of CBC data. Current Interpretive Data was last revised on 2017. Lymphocyte pct 24.6 % [facility] Comment: Interpretive Data Percent cell count reference ranges are not reported, since discordance with absolute values may lead to misinterpretation of CBC data. Current Interpretive Data was last revised on 2017. Monocyte pct 6.2 % [facility] Comment: Interpretive Data Percent cell count reference ranges are not reported, since discordance with absolute values may lead to misinterpretation of CBC data. Current Interpretive Data was last revised on 2017. Eosinophil pct 2.5 % [facility] Comment: Interpretive Data Percent cell count reference ranges are not reported, since discordance with absolute values may lead to misinterpretation of CBC data. Current Interpretive Data was last revised on 2017. Basophil pct 0.2 % [facility] Comment: Interpretive Data Percent cell count reference ranges are not reported, since discordance with absolute values may lead to misinterpretation of CBC data. Current Interpretive Data was last revised on 2017. Blood 12/20/2024 12:1 6 PM CDT 12/20/2024 12:41 PM CDT Thu Espino MD LAB BLOOD ORDERABLES Final Resul t Performing Organization Address City/[facility]/ZIP Co de Phone Number [facility] [place] [address] * HIV 1/2 Antibody plus p24 Antigen Blood (12/20/2024 12:16 PM CDT) [facility] HIV 1/2 ab + p24 ag Nonreactive [...] ORDER NINO Final Result Performing Organization Address [facility] Co de Phone Number [facility] Department [place] [address] * (ABNORMAL) CBC with auto differential (12/20/2024 12:16 PM CDT) [facility] WBC 9.77 3.80 - 9.90 K/cumm Hgb 14.7 11.9 - 15.5 g/dL [facility] Hct 42.1 35.6 - 45.5 % [facility] Plt 245 150 - 400 K/cumm [facility] MPV 9.6 9.1 - 12.3 fL [facility] RBC 4.34 3.90 - 5.20 M/cumm [facility] MCV 97.0(H) 81.3 - 96.4 fL [facility] MCH 33.9(H) 27.1 - 33.3 pg [facility] MCHC 34.9 32.3 - 35.7 g/dL [facility] RDW CV 12.3 11.1 - 14.9 % [facility] RDW SD 44.0 35.7 - 48.1 fL [facility] NRBC abs 0.00 0.00 - 0.01 K/cumm [facility] Blood 12/20/2024 12:1 6 PM CDT 12/20/2024 12:41 PM CDT us Thu Espino MD LAB BLOOD ORDERABLES Final Resul t Performing Organization Address City/[facility] Co de Phone Number [facility] [place] [address] * Hepatitis C antibody Blood (12/20/2024 12:16 PM CDT) Hep C Ab Nonreactive Nonreactive Comment:Antibodies to HCV no t detected. Does NOT exclude the possibility of recent exposure to HCV. Current interpretive data was last revised on 22 Blood 12/20/2024 12:1 6 PM CDT 12/20/2024 12:41 PM CDT us Thu Espino MD LAB MICROBIOLOGY - GENERAL ORDER NINO Final Result Performing Organization Address City/[facility] Co de Phone Number [facility] [place] [address] * Hepatitis B core antibody, total Blood (12/20/2024 12:16 PM CDT) Pathologist [facility] Hep B core IgG/IgM Nonreactive Nonreactive Blood 12/20/2024 12:1 6 PM CDT 12/20/2024 12:41 PM CDT us Thu Espino MD LAB MICROBIOLOGY - GENERAL ORDER NINO Final Result Performing Organization Address City/[facility] Co de Phone Number [facility] [place] [address] * Hepatitis B surface antibody (immune status) Blood (12/20/2024 12:16 PM CDT) HBsAb (immune status) Nonreactive Comment:This result is consi stent with a lack of immunity to Hepatitis B Virus when used in the setting of routine screening. Current interpretative data was last revised on 22 Blood 12/20/2024 12:1 6 PM CDT 12/20/2024 12:41 PM CDT Result Mc Espino MD LAB MICROBIOLOGY - GENERAL ORDER NINO Final Result Performing Organization Address [facility] de Phone Number [facility] [place] [address] * Hepatitis B Surface Antigen Blood (12/20/2024 12:16 PM CDT) HepBsAg Nonreactive Nonreactive Blood 12/20/2024 12:1 6 PM CDT 12/20/2024 12:41 PM CDT us Thu Espino MD LAB MICROBIOLOGY - GENERAL ORDER NINO Final Result Performing Organization Address [facility] de Phone Number [facility] [place] [address] * Erythrocyte sedimentation rate (12/20/2024 12:16 PM CDT) Erythrocyte sedimentation rate 24 1 - 30 mm/hr Blood 12/20/2024 12:1 6 PM CDT 12/20/2024 12:41 PM CDT Result Mc Espino MD LAB BLOOD ORDERABLES Final Resul t Performing Organization Address [facility] [place] [address] * CRP (acute phase) (12/20/2024 12:16 PM CDT) CRP 3.1 <=10.0 mg/L Blood 12/20/2024 12:1 6 PM CDT 12/20/2024 12:41 PM CDT Result Mc Espino MD LAB BLOOD ORDERABLES Final Resul t [facility] Department [place] [address] * (ABNORMAL) Comprehensive metabolic panel (12/20/2024 12:16 PM CDT) Sodium 141 135 - 145 mmol/L Potassium, pl 4.1 3.3 - 4.9 mmol/L [facility] Chloride 104 97 - 110 mmol/L [facility] CO2 25 22 - 32 mmol/L [facility] Anion gap 12 2 - 15 mmol/L [facility] BUN 14 6 - 25 mg/dL [facility] Creatinine 0.80 0.60 - 1.10 mg/dL [facility] Glucose 159 70 - 199 mg/dL [facility] Comment: Interpretive Data Fasting glucose >/= [...] 2022. Calcium 9.6 8.5 - 10.3 mg/dL [facility] Bilirubin, total 0.8 0.1 - 1.2 mg/dL [facility] Protein, pl 9.1(H) 6.5 - 8.5 g/dL [facility] Albumin 4.7 3.5 - 5.0 g/dL [facility] Alk phos 93 40 - 130 Units/L [facility] ALT 175(H) 7 - 45 Units/L [facility] AST 130(H) 10 - 45 Units/L [facility] Blood 12/20/2024 12:1 6 PM CDT 12/20/2024 12:41 PM CDT Thu Espino MD LAB BLOOD ORDERABLES Final Resul t CHUYITA SMITH [facility] Department [place] [address] * (ABNORMAL) POCT hemoglobin A1c (12/12/2024 8:50 AM CDT) Pathologist [facility] Hemoglobin A1C, POC 7.1(A) 4.0 - 5.6 % Blood 12/12/2024 8:50 AM CDT Leila Rodriguez MD POINT OF CARE TEST ORDERAB LES Final Result * POCT glucose (12/12/2024 8:49 AM CDT) Pathologist [facility] Glucose Blood, POC 200 Normal Fasting 70 - 100, Random <200 mg/dL Blood 12/12/2024 8:49 AM CDT eLila Rodriguez MD POINT OF CARE TEST ORDERAB LES Final Result * (ABNORMAL) CBC with auto differential (11/04/2024 11:47 AM CDT) Pathologist [facility] White Blood Count 10.4 3.6 - 11.2 [...] ORDERABLES Final Resul t Performing Organization Address City/State/[facility] Co de Phone Number [facility] * (ABNORMAL) Erythrocyte sedimentation rate (11/04/2024 11:47 AM CDT) Pathologist [facility] Erythrocyte Sedimentation Rate 33(H) <30 mm/hr [facility] Blood 11/04/2024 11:4 7 AM CDT 11/04/2024 12:46 PM CDT Tuh Espino MD LAB BLOOD ORDERABLES Final Resul t [facility] * CRP (acute phase) (11/04/2024 11:47 AM CDT) Pathologist [facility] C-Reactive Protein, Acute <3.0 <5.0 mg/L [facility] Blood 11/04/2024 11:4 7 AM CDT 11/04/2024 12:46 PM CDT us Thu Espino MD LAB BLOOD ORDERABLES Final Resul t Performing Organization Address [facility]/ZIP Co de Phone Number [facility] * [...] AM CDT 11/04/2024 12:46 PM CDT Narrative [facility] - 11/04/2024 2:24 PM [...] MD LAB BLOOD ORDERABLES Final Resul t [facility] * [...] [facility] * Albumin Creatinine Ratio, Urine (08/30/2024 9:13 AM CDT) Albumin Ur 13.5 mg/L Comment: Interpretive Data No reference range established. Current interpretive data was last revised 2018. Creatinine Ur 117.6 mg/dL [facility] Comment: Interpretive Data No reference range established. Current interpretive data was last revised 2018. Albumin Creatinine Ratio, Ur 11 1 - 29 mg/g [facility] Urine 08/30/2024 9:13 AM CDT 08/30/2024 9:45 AM CDT Jessica FELIZ LAB URINE ORDERABLES Franny holden Result CHUYITA [facility] Department [place] [address] * Pap and High Risk HPV, reflex to Genotyping (12/16/2021 9:34 AM CDT) Thin prep (Pap test) 12/16/2021 9:34 AM CDT 12/17/2021 9:34 AM CDT Narrative PATHOLOGY [facility] - 12/19/2021 9:55 AM CDT [facility] Department of Pathology [address] [place] [id number] Final Report with Addendum Note to [...] the details. Patient Name: SOPHIE ROJAS Address: [address] [place] [address] Gender: F : 1975 (Age: 46) Service: Laboratory Location: N : [id number] [facility] #: [id number] Patient Type: [facility] SPECIMEN Taken: 12/16/2021 Received: 12/17/2021 Accessioned:: 12/18/2021 Reported: 12/19/2021 Physician(s): Hilda Reveles M.D. [facility] Diagnosis: Source of Specimen: SCREENING THIN PREP [...] determined by the Surgical Pathology Department at [facility] as part of an ongoing director of quality control program and in compliance with [...] determined by the Surgical Pathology Department [facility]. It has not been cleared or approved by the [place]. [place]. Food and Drug Administration. Hilda Reveles MD LAB CYTOLOGY ORDERABLES Final Re sult PATHOLOGY [facility] from Last 3 Months or Most Recently Relevant to Health Maintenance Insurance MEDICARE IDPA [facility] MEDICARE MEDICARE IDPA Care Teams Office Auditor Relationship Specialty Start Date End Date Devin Arredondo DO PCP - General Internal Medicine 05/09/20
--- OUTSIDE RECORDS SUMMARY | 2025-01-24 21:35 | XMS_ITS | Encounter Summary ---
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
[2025-01-24 21:37] VITALS: BP 118/91; PULSE 107; RESP 20; TEMP 36.6; O2SAT 100
--- OUTSIDE RECORDS SUMMARY | 2025-01-25 00:26 | XMS_ITS | Referral Summary ---
Author Organization [facility] Address [address] [place] [phone] Care Team Providers Care Quality Assurance Practice Manager Name Role Phone Devin Arredondo DO Primary Care Provider [phone]- [phone] Encounters Date Type Department Care Team Description 01/13/2025 9:30 AM CDT Infusion [facility] [address] [place] [phone] Rheumatoid arthritis, involving unspecified site, unspecified whether rheumatoid factor present (HCC) (Primary Dx) 01/09/2025 Orders Only [facility] [address] [place] [phone] Emanuel Garcia, JESSICA 12/26/2024 10:30 AM CDT Infusion [facility] [address] [place] [phone] Rheumatoid arthritis, involving unspecified site, unspecified whether rheumatoid factor present (HCC) (Primary Dx) 12/26/2024 Orders Only [facility] [address] [place] [phone] Dwight Valdez, JESSICA 12/20/2024 2:[address] [facility] ([facility]) [address] [place] [phone] High risk medication use; Rheumatoid arthritis, involving unspecified site, unspecified whether rheumatoid factor present (HCC) 12/20/2024 11:15 AM CDT Office Visit [facility] Rheumatology [address] [place] [address] [place] [phone] Thu Espino MD High risk medication use (Primary Dx); Rheumatoid arthritis, involving unspecified site, unspecified whether rheumatoid factor present (HCC) 12/14/2024 Telephone [facility] Endocrinology Metabolism and Lipid [address] [place] [address] [place] [phone] Lesia Soria RMA Prior Auth (TRAY BALDERAS PLEASE) 12/12/2024 9:20 AM CDT Office Visit [facility] Endocrinology Metabolism and Lipid [address] [place] [address] [place] [phone] Leila Rodriguez MD Type 2 diabetes mellitus [...] [facility] [address] [place] [address] [place] [phone] High risk medication use; Rheumatoid arthritis involving multiple sites with positive rheumatoid factor (HCC) 11/04/2024 10:45 AM CDT Office Visit [facility] Rheumatology [address] [place] [address] [place] [phone] Thu Espino MD High risk medication use (Primary Dx); Rheumatoid arthritis involving multiple sites with positive rheumatoid factor (HCC) from Last 3 Months Allergies No known active allergies Medications famotidine (PEPCID) 20 mg tablet 0 Active glucagon 1 mg injection INJECT 1 MG UNDER THE SKIN ONCE NEEDED. MAY REPEAT IN 15 MINS IF NEEDED WITH NEW DECIVE 1 Active atorvastatin (LIPITOR) 80 mg tablet Take 1 tablet (80 mg total) by mouth daily 2 Active pregabalin (LYRICA) 150 mg capsule Take 1 capsule (150 mg total) by mouth 2 (two) times a day 3 Active pen needle, diabetic (BD Ultra-Fine Heather Pen Needle) 32 gauge x /32 needleIndicati ons:Type 2 diabetes mellitus with other specified complication, with long-term current use of insulin USE TO INJECT INSULIN 3 TIMES PER DAY. 200 each 3 4 Active glucagon (Gvoke HypoPen 1-Pack) 1 mg/0.2 mL auto-injectorI ndications:Typ e 2 diabetes mellitus with other specified complication, with long-term current use of insulin Use as directed for severe hypoglycemia 2 mL 2 4 Active insulin degludec (TRESIBA) 100 unit/mL (3 mL) pen for injectionIndic ations:Type 2 diabetes mellitus with other specified complication, with long-term current use of insulin INJECT 33 UNITS ONCE DAILY IN CASE OF PUMP FAILURE 15 mL 2 5 Active citalopram (CeleXA) 40 mg tablet Take 1 tablet (40 mg total) by mouth daily 5 Active tirzepatide (Mounjaro) 7.5 mg/0.5 mL pen injector injection Inject 0.5 mL (7.5 mg total) under the skin every 7 days 2 mL 3 5 Active insulin aspart (NovoLOG) 100 unit/mL vial for injectionIndic ations:Type 2 diabetes mellitus with other specified complication, with long-term current use of insulin Use in insulin pump. Max daily dose 90 units. 90 mL 3 5 Active predniSONE (DELTASONE) 5 mg tablet Take 4 tablets (20 mg) by mouth daily for 7 days, THEN 3 tablets (15 mg) daily for 7 days, THEN 2 tablets (10 mg) daily for 7 days, THEN 1 tablet (5 mg) daily for 7 days. 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 Gender Identity Not on file [...] current use of insulin (HCC) POCT GLUCOSE 50068 Routine 12/12/2024 8: 49 AM CDT Type [...] * T-SPOT.TB Blood (12/20/2024 12:16 PM CDT) [facility] T-SPOT.TB Negative SeeBelow Comment: Normal Value: Negative [...] T-SPOT.TB Panel A Spot Count 0 [facility] T-SPOT.TB Panel B Spot Count 0 [facility] T-SPOT.TB Negative Control Passed [facility] T-SPOT.TB Positive Control Passed [facility] Comment: Test Performed at: [place] [address] CHIN VELAZQUEZ,PHD Blood 12/20/2024 12:1 6 PM CDT 12/20/2024 1:03 PM CDT Thu Espino MD LAB MICROBIOLOGY - GENERAL ORDER NINO Final Result [facility] [place] [address] * eGFR (12/20/2024 12:16 PM CDT) eGFR [...] LAB BLOOD ORDERABLES Final Resul t [facility] [place] [address] * Differential, auto (12/20/2024 12:16 PM CDT) Neutrophil abs 6.46 1.50 - 6.50 K/cumm Imm gran abs 0.04 0.00 - 0.10 K/cumm [facility] Lymphocyte abs 2.40 0.80 - 3.30 K/[facility] Monocyte abs 0.61 0.20 - 0.80 K/cumm [facility] Eosinophil abs 0.24 0.00 - 0.50 K/cumm [facility] Basophil abs 0.02 0.00 - 0.10 K/cumm [facility] Neutrophil pct 66.1 % [facility] Comment: Interpretive Data Percent cell count reference ranges are not reported, since discordance with absolute values may lead to misinterpretation of CBC data. Current Interpretive Data was last revised on 2017. Imm gran pct 0.4 % [facility] Comment: Interpretive Data Percent cell count reference ranges are not reported, since discordance with absolute values may lead to misinterpretation of CBC data. Current Interpretive Data was last revised on 2017. Lymphocyte pct 24.6 % [facility] Comment: Interpretive Data Percent cell count reference ranges are not reported, since discordance with absolute values may lead to misinterpretation of CBC data. Current Interpretive Data was last revised on 2017. Monocyte pct 6.2 % [facility] Comment: Interpretive Data Percent cell count reference ranges are not reported, since discordance with absolute values may lead to misinterpretation of CBC data. Current Interpretive Data was last revised on 2017. Eosinophil pct 2.5 % [facility] Comment: Interpretive Data Percent cell count reference ranges are not reported, since discordance with absolute values may lead to misinterpretation of CBC data. Current Interpretive Data was last revised on 2017. Basophil pct 0.2 % [facility] Comment: Interpretive Data Percent cell count reference ranges are not reported, since discordance with absolute values may lead to misinterpretation of CBC data. Current Interpretive Data was last revised on 2017. Blood 12/20/2024 12:1 6 PM CDT 12/20/2024 12:41 PM CDT us Thu Espino MD LAB BLOOD ORDERABLES Final Resul t Performing Organization Address [facility] [place] [address] * HIV 1/2 Antibody plus p24 Antigen Blood (12/20/2024 12:16 PM CDT) [facility] HIV 1/2 ab + p24 ag Nonreactive [...] ORDER NINO Final Result Performing Organization Address [facility] de Phone Number [facility] [place] [address] * (ABNORMAL) CBC with auto differential (12/20/2024 12:16 PM CDT) [facility] WBC 9.77 3.80 - 9.90 K/cumm Hgb 14.7 11.9 - 15.5 g/dL [facility] Hct 42.1 35.6 - 45.5 % [facility] Plt 245 150 - 400 K/cumm [facility] MPV 9.6 9.1 - 12.3 fL [facility] RBC 4.34 3.90 - 5.20 M/cumm [facility] MCV 97.0(H) 81.3 - 96.4 fL [facility] MCH 33.9(H) 27.1 - 33.3 pg [facility] MCHC 34.9 32.3 - 35.7 g/dL [facility] RDW CV 12.3 11.1 - 14.9 % [facility] RDW SD 44.0 35.7 - 48.1 fL [facility] NRBC abs 0.00 0.00 - 0.01 K/cumm [facility] Blood 12/20/2024 12:1 6 PM CDT 12/20/2024 12:41 PM CDT us Thu Espino MD LAB BLOOD ORDERABLES Final Resul t Performing Organization Address [facility] Co de Phone Number [facility] [place] [address] * Hepatitis C antibody Blood (12/20/2024 12:16 PM CDT) Pathologist [facility] Hep C Ab Nonreactive Nonreactive Comment:Antibodies to HCV no t detected. Does NOT exclude the possibility of recent exposure to HCV. Current interpretive data was last revised on 22 Blood 12/20/2024 12:1 6 PM CDT 12/20/2024 12:41 PM CDT us Thu Espino MD LAB MICROBIOLOGY - GENERAL ORDER NINO Final Result [facility] [place] [address] * Hepatitis B core antibody, total Blood (12/20/2024 12:16 PM CDT) Pathologist [facility] Hep B core IgG/IgM Nonreactive Nonreactive Blood 12/20/2024 12:1 6 PM CDT 12/20/2024 12:41 PM CDT us Thu Espino MD LAB MICROBIOLOGY - GENERAL ORDER NINO Final Result Performing Organization Address [facility] [place] [address] * Hepatitis B surface antibody (immune status) [...] ORDER NINO Final Result Performing Organization Address [facility] Co de Phone Number [facility] [place] [address] * Hepatitis B Surface Antigen Blood (12/20/2024 12:16 PM CDT) HepBsAg Nonreactive Nonreactive Blood 12/20/2024 12:1 6 PM CDT 12/20/2024 12:41 PM CDT us Thu Espino MD LAB MICROBIOLOGY - GENERAL ORDER NINO Final Result Performing Organization Address City/[facility]/ZIP Co de Phone Number [facility] [place] [address] * Erythrocyte sedimentation rate (12/20/2024 12:16 PM CDT) Erythrocyte sedimentation rate 24 1 - 30 mm/hr Blood 12/20/2024 12:1 6 PM CDT 12/20/2024 12:41 PM CDT us Thu Espino MD LAB BLOOD ORDERABLES Final Resul t [facility] [place] [address] * CRP (acute phase) (12/20/2024 12:16 PM CDT) Pathologist [facility] CRP 3.1 <=10.0 mg/L Blood 12/20/2024 12:1 6 PM CDT 12/20/2024 12:41 PM CDT Thu Espino MD LAB BLOOD ORDERABLES Final Resul t Performing Organization Address [facility] Co de Phone Number [facility] [place] [address] * (ABNORMAL) Comprehensive metabolic panel (12/20/2024 12:16 PM CDT) [facility] Sodium 141 135 - 145 mmol/L Potassium, pl 4.1 3.3 - 4.9 mmol/L [facility] Chloride 104 97 - 110 mmol/L [facility] CO2 25 22 - 32 mmol/L [facility] Anion gap 12 2 - 15 mmol/L [facility] BUN 14 6 - 25 mg/dL [facility] Creatinine 0.80 0.60 - 1.10 mg/dL [facility] Glucose 159 70 - 199 mg/dL [facility] Comment: Interpretive Data Fasting glucose >/= 126 [...] Calcium 9.6 8.5 - 10.3 mg/dL [facility] Bilirubin, total 0.8 0.1 - 1.2 mg/dL [facility] Protein, pl 9.1(H) 6.5 - 8.5 g/dL [facility] Albumin 4.7 3.5 - 5.0 g/dL [facility] Alk phos 93 40 - 130 Units/L [facility] ALT 175(H) 7 - 45 Units/L [facility] AST 130(H) 10 - 45 Units/L [facility] Blood 12/20/2024 12:1 6 PM CDT 12/20/2024 12:41 PM CDT Thu Espino MD LAB BLOOD ORDERABLES Final Resul t [facility] [place] [address] * (ABNORMAL) POCT hemoglobin A1c (12/12/2024 8:50 AM CDT) Pathologist [facility] Hemoglobin A1C, POC 7.1(A) 4.0 - 5.6 % Blood 12/12/2024 8:50 AM CDT Leila Rodriguez MD POINT OF CARE TEST ORDERAB LES Final Result * POCT glucose (12/12/2024 8:49 AM CDT) Pathologist [facility] Glucose Blood, POC 200 Normal Fasting 70 - 100, Random <200 mg/dL Blood 12/12/2024 8:49 AM CDT Leila Rodriguez MD POINT OF CARE TEST ORDERAB LES Final Result * (ABNORMAL) CBC with auto differential (11/04/2024 11:47 AM CDT) Pathologist [facility] White Blood Count 10.4 3.6 - 11.2 [...] MD LAB BLOOD ORDERABLES Final Resul t [facility] * CRP (acute phase) (11/04/2024 11:47 AM CDT) C-Reactive Protein, Acute <3.0 <5.0 mg/L [facility] Blood 11/04/2024 11:4 7 AM CDT 11/04/2024 12:46 PM CDT Thu Espino MD LAB BLOOD ORDERABLES Final Resul t [facility] [...] AM CDT 11/04/2024 12:46 PM CDT Narrative [facility] - 11/04/2024 2:24 [...] MD LAB BLOOD ORDERABLES Final Resul t [facility] * Albumin Creatinine Ratio, Urine (08/30/2024 9:13 AM CDT) Albumin Ur 13.5 mg/L Comment: Interpretive Data No reference range established. Current interpretive data was last revised 2018. Creatinine Ur 117.6 mg/dL [facility] Comment: Interpretive Data No reference range established. Current interpretive data was last revised 2018. Albumin Creatinine Ratio, Ur 11 1 - 29 mg/g [facility] Urine 08/30/2024 9:13 AM CDT 08/30/2024 9:45 AM CDT us Jessica FELIZ LAB URINE ORDERABLES Franny holden Result [facility] [place] [address] * Pap and High Risk HPV, reflex to Genotyping (12/16/2021 9:34 AM CDT) Thin prep (Pap test) 12/16/2021 9:34 AM CDT 12/17/2021 9:34 AM CDT Narrative PATHOLOGY [facility] - 12/19/2021 9:55 AM CDT [facility] Department of Pathology [address] [place] [id number] Final Report with Addendum Note to [...] Patient Name: SOPHIE ROJAS Address: [address], [place] [address] Gender: F : 1975 (Age: 46) Service: Laboratory Location: [facility] #: [id number] Patient Type: E SPECIMEN Taken: 12/16/2021 Received: 12/17/2021 Accessioned:: 12/18/2021 Reported: 12/19/2021 Physician(s): Hilda Reveles M.D. [facility] Diagnosis: Source of Specimen: SCREENING THIN [...] 59, 66 and 68. Test performed utilizing Gen-Soulstice Endeavors Aptima assay. VICTOR M Cotter(ASCP)Report Electronically Reviewed [...] determined by the Surgical Pathology Department at [facility] as part of an ongoing quality assurance practice manager program and in compliance with federally [...] characteristics determined by the Surgical Pathology Department [facility]. It has not been cleared or approved by the U. S. Food and Drug Administration. Hilda Reveles MD LAB CYTOLOGY ORDERABLES Final Re sult [facility] from Last 3 Months or Most Recently Relevant to Health Maintenance Insurance MEDICARE IDPA IDIN MEDICARE MEDICARE [facility] Care Teams Quality Assurance Practice Manager Relationship Specialty Start Date End Date Devin Arredondo DO PCP - General Internal Medicine 05/09/20
--- OUTSIDE RECORDS SUMMARY | 2025-01-25 00:26 | XMS_ITS | Encounter Summary ---
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
--- OUTSIDE RECORDS SUMMARY | 2025-01-25 00:26 | XMS_ITS | Clinical Summary ---
Author Organization [facility] Address [address] [place] [address] Care Team Providers Care Auto Damage Trainee Name Role Phone Devin Arredondo DO Primary Care Provider +1- [phone] Allergies No known active allergies Medications famotidine [...] Heather Pen Needle) 32 gauge x 5/32 needleIndicati ons:Type 2 diabetes mellitus with other [...] activity Assessment & Plan (07/28/2022 9:22 AM SEAT TRIMMER): -Last labs dated 12/27/21 : TC 176 [...] date Assessment & Plan (07/30/2022 1:47 PM SEAT TRIMMER): -Currently taking Ozempic and Metformin, using Tandem [...] Team Description 01/13/2025 9:30 AM CDT Infusion [facility] [address] [place] [phone] Rheumatoid arthritis, involving unspecified site, unspecified whether rheumatoid factor present (HCC) (Primary Dx) 01/09/2025 Orders Only [facility] [address] [place] [phone] Emanuel Garcia RN 12/26/2024 10:30 AM CDT Infusion [facility] [address] [place] [phone] Rheumatoid arthritis, involving unspecified site, unspecified whether rheumatoid factor present (HCC) (Primary Dx) 12/26/2024 Orders Only [facility] [address] [place] [phone] Dwight Valdez RN 12/20/2024 2:15 PM CDT Lab [facility] [address] [place] [address] High risk medication use; Rheumatoid arthritis, involving unspecified site, unspecified whether rheumatoid factor present (HCC) 12/20/2024 11:15 AM CDT Office Visit [facility] Rheumatology [address] [facility] 5th [place] [address] [place] [address] Thu Espino MD High risk medication use (Primary Dx); Rheumatoid arthritis, involving unspecified site, unspecified whether rheumatoid factor present (HCC) 12/14/2024 Telephone [facility] Endocrinology Metabolism and Lipid [address] [place] [address] [place] [address] Lesia Soria RMA Prior Auth (TRAY BALDERAS PLEASE) 12/12/2024 9:20 AM CDT Office Visit [facility] Endocrinology Metabolism and Lipid [address] [facility] 13th [place] [address] [place] [address] Leila Rodriguez MD Type 2 diabetes mellitus with other specified complication, with long-term current use of insulin (HCC) (Primary Dx); Nonalcoholic fatty liver disease; Class 1 obesity due to excess calories with serious comorbidity and body mass index (BMI) of 32.0 to 32.9 in adult; Mixed hyperlipidemia; Hypertension, unspecified type 11/04/2024 11:40 AM CDT Lab [facility] Endocrinology Metabolism and Lipid [address] [place] [address] [place] [address] High risk medication use; Rheumatoid arthritis involving multiple sites with positive rheumatoid factor (HCC) 11/04/2024 10:45 AM CDT Office Visit [facility] Rheumatology [address] [place] [address] [place] [address] Thu Espino MD High risk medication use [...] on file Legal Sex Female 8:30 PM SEAT TRIMMER Gender Identity Not on file Sexual Orientation [...] current use of insulin (HCC) POCT GLUCOSE [address]5214 Routine 12/12/2024 8: 49 AM CDT Type [...] * T-SPOT.TB Blood (12/20/2024 12:16 PM CDT) [facility] T-SPOT.TB Negative SeeBelow Comment: Normal Value: Negative [...] [facility] Comment: Test Performed at: [employer] [employer] [facility], [employer] [facility] [place] [address] CHIN VELAZQUEZ,PHD Blood 12/20/2024 12:1 6 PM CDT 12/20/2024 1:03 PM CDT us Thu Espino MD LAB MICROBIOLOGY - GENERAL ORDER NINO Final Result Performing Organization Address City/[facility]/ZIP Co de Phone Number [facility] [place] [address] * eGFR (12/20/2024 12:16 PM CDT) eGFR [...] ORDERABLES Final Resul t CHUYITA SMITH [facility] [place] [address] * Differential, auto (12/20/2024 12:16 PM CDT) Neutrophil abs 6.46 1.50 - 6.50 K/cumm Imm gran abs 0.04 0.00 - 0.10 K/cumm [facility] Lymphocyte abs 2.40 0.80 - 3.30 K/cumm [facility] Monocyte abs 0.61 0.20 - 0.80 K/cumm [facility] Eosinophil abs 0.24 0.00 - 0.50 K/cumm [facility] Basophil abs 0.02 0.00 - 0.10 K/cumm [facility] Neutrophil pct 66.1 % [facility] [...] revised on 2017. Lymphocyte pct 24.6 % [facility] Comment: Interpretive Data Percent cell count [...] revised on 2017. Eosinophil pct 2.5 % [facility] Comment: Interpretive Data Percent cell count reference ranges are not reported, since discordance with absolute values may lead to misinterpretation of CBC data. Current Interpretive Data was last revised on 2017. Basophil pct 0.2 % [facility] Comment: Interpretive Data Percent cell count reference ranges are not reported, since discordance with absolute values may lead to misinterpretation of CBC data. Current Interpretive Data was last revised on 2017. Blood 12/20/2024 12:1 6 PM CDT 12/20/2024 12:41 PM CDT us Thu Espino MD LAB BLOOD ORDERABLES Final Resul t Performing Organization Address City/[facility] Co de Phone Number [facility] [place] [address] * HIV 1/2 Antibody plus p24 Antigen Blood (12/20/2024 12:16 PM CDT) Pathologist [facility] HIV 1/2 ab + p24 ag Nonreactive [...] ORDER NINO Final Result Performing Organization Address City/[facility] Co de Phone Number [facility] [place] [address] * (ABNORMAL) CBC with auto differential (12/20/2024 12:16 PM CDT) [facility] WBC 9.77 3.80 - 9.90 K/cumm [...] City/State/[facility] Co de Phone Number [facility] [place] [address] * Hepatitis C antibody Blood (12/20/2024 12:16 PM CDT) Hep C Ab Nonreactive Nonreactive Comment:Antibodies to HCV no t detected. Does NOT exclude the possibility of recent exposure to HCV. Current interpretive data was last revised on 22 Blood 12/20/2024 12:1 6 PM CDT 12/20/2024 12:41 PM CDT us Thu Espino MD LAB MICROBIOLOGY - GENERAL ORDER NINO Final Result Performing Organization Address [facility] Co de Phone Number [facility] [place] [address] * Hepatitis B core antibody, total Blood (12/20/2024 12:16 PM CDT) Hep B core IgG/IgM Nonreactive Nonreactive Blood 12/20/2024 12:1 6 PM CDT 12/20/2024 12:41 PM CDT us Thu Espino MD LAB MICROBIOLOGY - GENERAL ORDER NINO Final Result Performing Organization Address City/[facility]/ZIP Co de Phone Number [facility] [place] [address] * Hepatitis B surface antibody (immune status) Blood (12/20/2024 12:16 PM CDT) Pathologist [facility] HBsAb (immune status) Nonreactive Comment:This result is consi stent with a lack of immunity to Hepatitis B Virus when used in the setting of routine screening. Current interpretative data was last revised on 22 Blood 12/20/2024 12:1 6 PM CDT 12/20/2024 12:41 PM CDT us Thu Espino MD LAB MICROBIOLOGY - GENERAL ORDER NINO Final Result Performing Organization Address City/[facility] Co de Phone Number [facility] [address] * Hepatitis B Surface Antigen Blood (12/20/2024 12:16 PM CDT) Pathologist [facility] HepBsAg Nonreactive Nonreactive Blood 12/20/2024 12:1 6 PM CDT 12/20/2024 12:41 PM CDT us Thu Espino MD LAB MICROBIOLOGY - GENERAL ORDER NINO Final Result Performing Organization Address [facility] de Phone Number [facility] [place] [address] * Erythrocyte sedimentation rate (12/20/2024 12:16 PM CDT) [facility] Erythrocyte sedimentation rate 24 1 - 30 mm/hr Blood 12/20/2024 12:1 6 PM CDT 12/20/2024 12:41 PM CDT us Thu Espino MD LAB BLOOD ORDERABLES Final Resul t Performing Organization Address City/[facility] Co de Phone Number [facility] [address] * CRP (acute phase) (12/20/2024 12:16 PM CDT) [facility] CRP 3.1 <=10.0 mg/L Blood 12/20/2024 12:1 6 PM CDT 12/20/2024 12:41 PM CDT us Thu Espino MD LAB BLOOD ORDERABLES Final Resul t [facility] [place] [address] * (ABNORMAL) Comprehensive metabolic panel (12/20/2024 12:16 [...] Calcium 9.6 8.5 - 10.3 mg/dL [facility] Bilirubin, total 0.8 0.1 - 1.2 mg/dL [facility] Protein, pl 9.1(H) 6.5 - 8.5 g/dL [facility] Albumin 4.7 3.5 - 5.0 g/dL [facility] Alk phos 93 40 - 130 Units/L [facility] ALT 175(H) 7 - 45 Units/L [facility] AST 130(H) 10 - 45 Units/L [facility] Blood 12/20/2024 12:1 6 PM CDT 12/20/2024 12:41 PM CDT Thu Espino MD LAB BLOOD ORDERABLES Final Resul t [facility] [place] [address] * (ABNORMAL) POCT hemoglobin A1c (12/12/2024 8:50 AM CDT) Pathologist [facility] Hemoglobin A1C, POC 7.1(A) 4.0 - 5.6 % Blood 12/12/2024 8:50 AM CDT Leila Rodriguez MD POINT OF CARE TEST ORDERAB LES Final Result * POCT glucose (12/12/2024 8:49 AM CDT) Pathologist [facility] Glucose Blood, POC 200 Normal Fasting 70 - 100, Random <200 mg/dL Blood 12/12/2024 8:49 AM CDT Leila Rodriguez MD POINT OF CARE TEST ORDERAB LES Final Result * (ABNORMAL) CBC with auto differential (11/04/2024 11:47 AM CDT) Pathologist [facility] White Blood Count 10.4 3.6 - 11.2 [...] ORDERABLES Final Resul t Performing Organization Address [facility] de Phone Number [facility] * (ABNORMAL) Erythrocyte sedimentation rate (11/04/2024 11:47 AM CDT) Pathologist [facility] Erythrocyte Sedimentation Rate 33(H) <30 mm/hr [facility] Blood 11/04/2024 11:4 7 AM CDT 11/04/2024 12:46 PM CDT Thu Espino MD LAB BLOOD ORDERABLES Final Resul t Performing Organization Address [facility] de Phone Number [facility] * CRP (acute phase) (11/04/2024 11:47 AM CDT) C-Reactive Protein, Acute <3.0 <5.0 mg/L [facility] Blood 11/04/2024 11:4 7 AM CDT 11/04/2024 12:46 PM CDT Thu Espino MD LAB BLOOD ORDERABLES Final Resul t Performing Organization Address [facility] Co de Phone Number [facility] [...] CDT 11/04/2024 12:[address] [facility] - 11/04/2024 2:24 [...] ORDERABLES Final Resul t Performing Organization Address [facility] Co de Phone Number [facility] [...] revised 2018. Creatinine Ur 117.6 mg/dL CHUYITA SMITH Comment: Interpretive Data No reference range established. Current interpretive data was last revised 2018. Albumin Creatinine Ratio, Ur 11 1 - 29 mg/g [facility] Urine 08/30/2024 9:13 AM CDT 08/30/2024 9:45 AM CDT us Jessica FELIZ LAB URINE ORDERABLES Franny holden Result [facility] [place] [address] * Pap and High Risk HPV, reflex to Genotyping (12/16/2021 9:34 AM CDT) Thin prep (Pap test) 12/16/2021 9:34 AM CDT 12/17/2021 9:34 AM CDT Narrative PATHOLOGY [facility] - 12/19/2021 9:55 AM CDT [facility] Department of Pathology [address] [place] [id number] Final Report with Addendum Note to [...] the details. Patient Name: SOPHIE ROJAS Address: [address] [place] [address] Gender: F : 1975 (Age: 46) Service: Laboratory Location: [facility] #: [id number] Patient Type: [facility] SPECIMEN Taken: 12/16/2021 Received: 12/17/2021 Accessioned:: 12/18/2021 Reported: 12/19/2021 Physician(s): Hilda Reveles M.D. [facility] Diagnosis: Source of Specimen: SCREENING THIN [...] determined by the Surgical Pathology Department at [facility] as part of an ongoing microbiology quality control technician program and in compliance with federally mandated [...] characteristics determined by the Surgical Pathology Department [facility]. It has not been cleared or approved by the U. S. Food and Drug Administration. Hilda Reveles MD LAB CYTOLOGY ORDERABLES Final Re sult Performing Organization Address City/State/[facility] Co de Phone Number PATHOLOGY [facility] from Last 3 Months or Most Recently Relevant to Health Maintenance Insurance MEDICARE [employer] [facility] MEDICARE MEDICARE [facility] Care Teams Auto Damage Trainee Relationship Specialty Start Date End Date Devin Arredondo DO PCP - General Internal Medicine 05/09/20
--- OUTSIDE RECORDS SUMMARY | 2025-01-25 00:26 | XMS_ITS | Encounter Summary ---
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
--- NOTE | 2025-01-25 00:48 | ECG_ITS ---
Test Date: 2025-01-25 01:43:18 Measurements Intervals [place] Rate: 87 P: 34 [place]: 176 QRS: 26 QRSD: 94 T: 41 QT: 362 QTc: 436 Interpretive Statements SINUS RHYTHM DELAYED PRECORDIAL R/S TRANSITION BASELINE ARTIFACT- I, II, III, AVR, AVL BORDERLINE ECG No previous ECG available for comparison Electronically Signed On 01-25-2025 06:23:28 CDT by Otis Soler D.O.
[2025-01-25 00:55] LABS: Add Urine Microscopic? YES; Appearance Urine Clear (Clear); Glucose Urine UA 2+ mg/dL (Negative); Leukocyte Esterase Ur Negative LEU/UL (Negative); Nitrate Urine Negative (Negative); Non Pathogenic Casts 0-2; Specific Grav Ur 1.030 (1.001-1.035)
[2025-01-25] MEDS: MORPHINE SULFATE (*CRX) 4 MG/ML INJ IV PUSH (01:02)
[2025-01-25] MEDS: ONDANSETRON INJ 4 MG/2 ML VIAL IV PUSH (01:02)
[2025-01-25] MEDS: SODIUM CHLORIDE 0.9% IV 1,000 ML 999 ML IV CONT ×2 (01:02→05:40)
[2025-01-25 01:11] LABS: Alanine Aminotransferase 110 U/L (6-35); Albumin Level 4.4 g/dL (3.5-5.1); Alkaline Phosphatase 106 U/L (38-126); Anion Gap 8 mmol/L (4-12); Aspartate Amino Transferase 95 U/L (14-36); Bilirubin,Total 0.8 mg/dL (0.2-1.3); Blood Urea Nitrogen 15 mg/dL (7-17); Calcium 9.0 mg/dL (8.4-10.2); Carbon Dioxide 22 mmol/L (22-30); Chloride 105 mmol/L (98-107); Estimated CRCL calculation 92 ml/min; Estimated Glomerular Filt Rate > 60; Glucose 221 mg/dL (65-110); Lipase 55 U/L (23-300); Potassium 3.8 mmol/L (3.4-5.0); Sodium 135 mmol/L (137-145); Total Protein 8.8 g/dL (6.3-8.2)
--- NOTE | 2025-01-25 01:14 | PC.NURSE ---
cbc added onto blood work already in lab
[2025-01-25 01:16] LABS: Hematocrit 41.3 % (37.0-47.0); Hemoglobin 14.3 g/dL (12.0-15.0); Immature Granulocyte Percent A 0.3 % (0-0.5); Lymphocytes Absolute Auto 4.52 K/mm3 (0.9-3.2); Mean Corpuscular HGB Conc 34.6 g/dl (32-36); Mean Corpuscular Hemoglobin 33.2 pg (26-34); Mean Corpuscular Volume 95.8 fl (80-100); Nucleated Red Blood Cells Absolute Auto 0.000 K/mm3 (0.0-0.012); Nucleated Red Blood Cells Perc 0.0 % (0.0-0.2); Platelet Count Result 274 k/mm3 (150-375); Red Blood Count 4.31 M/mm3 (4.2-5.4); White Blood Count 11.4 K/mm3 (4.5-10.0)
[2025-01-25 01:32] LABS: BEDSIDEPREGUCG Negative (Negative)
--- NOTE | 2025-01-25 02:05 | ED_ITS ---
HPI - Abdominal Pain General Chief Complaint: Abdominal Pain <DOUGLAS Whitten Last Filed: 01/25/25 03:36> Stated Complaint: R abdominal cramping, lightheaded, n/v <Sheila Kramer PA-C - Last Filed: 01/25/25 03:36> Time Seen by Provider: 01/25/25 00:15 <DOUGLAS Whitten Last Filed: 01/25/25 03:36> History of Present Illness HPI narrative: 49-year-old female with history of RA, hypertension, insulin-dependent diabetes presents to the emergency department for right lower quadrant abdominal pain for the past 3 days. Patient reports associated nausea and vomiting. She states the pain waxes and wanes. She cannot identify any aggravating or alleviating factors. She denies dysuria or hematuria, fever. Has had nausea and vomiting as well as diarrhea. She does note she has to 3 days left of a course of clindamycin for a dental infection that was prescribed by her dentist. She states she has had approximately 4 episodes of diarrhea daily the past 3 days. She also is endorsing lightheadedness when going from sitting to standing position. She denies prior abdominal surgeries. Additionally patient notes that she was recently started on infliximab infusions for her RA. Her 2nd and most recent infusion was January 13, 2025. Patient states she is concerned that her symptoms may be due to her infliximab. <Sheila Kramer PA-C - Last Filed: 01/25/25 03:36> Related Data Home Medications: Home Medications ?Medication ?Instructions ?Recorded ?Confirmed ?Last Taken ?Type lancets (Microlet Lancet) #50 ea 05/11/19 05/18/24 Unknown History prednisone 5 mg tablet 10 mg PO DAILY 05/18/24 05/18/24 Unknown History <DOUGLAS Whitten Last Filed: 01/25/25 03:36> Allergies/Adverse Reactions: Allergies Allergy/AdvReac Type Severity Reaction Status Date / Time No Known Allergies Allergy Unknown Verified 01/24/25 21:41 <DOUGLAS Whitten Last Filed: 01/25/25 03:36> Review of Systems 2 Review of Systems: All systems reviewed & are unremarkable except as noted in HPI and below <Sheila Kramer PA-C - Last Filed: 01/25/25 03:36> FOR[facility]LY [facility] Past Medical History Medical History: Medical History Obesity Hepatic steatosis Neuropathy Leukocytosis Excessive daytime sleepiness Abnormal mammogram Migraine headache Heartburn HTN (hypertension) COLETTE (obstructive sleep apnea) Rheumatoid arthritis Mixed hyperlipidemia Type 2 diabetes mellitus without complication, with technician terminal and repeater current use of insulin pump <Sheila Kramer PA-C - Last Filed: 01/25/25 03:36> Surgical History Surgical History: Surgical History History of tonsillectomy and adenoidectomy <Sheila Kramer PA-C - Last Filed: 01/25/25 03:36> Family History Family History: Family History Mother Diabetes mellitus <Sheila Kramer PA-C - Last Filed: 01/25/25 03:36> Social History Social History: Social History Social History: Caffeine-daily Smoking packs per day: 0.25 Smoking cigarettes per day: 5.0 Years smoked: 34 Smoking pack-years: 8.50 Smoking status: Former smoker Tobacco type: e-cigarettes/vaping Additional smoking assessment comments: stopped 05/2022, started again then stopped, smoke free 3 months 12/24/22 Alcohol intake: current Alcohol use details: 2 PER YEAR Substance use: never Substance use type: does not use Do You Feel Safe in your Home?: Yes Lack of Transportation: No Lack of Food: Never True Current Housing: Decline to Answer Concerned About Future Housing: No Difficulty Paying Gas/Electric Bills: No Difficulty Paying for Meds: No Currently Unemployed: Decline to Answer Education: Master's Degree or Higher Difficulty w/ Childcare or Family Care: No Living arrangements: with family Spiritual care concerns: No <Sheila Kramer PA-C - Last Filed: 01/25/25 03:36> Exam 2 Narrative: GENERAL: Well-appearing, well-nourished, and in no acute distress. HEAD: Normocephalic, atraumatic. EYES: EOMI. ENT: Nares clear, no rhinorrhea or epistaxis. Mucous membranes moist. NECK: Supple. CHEST: Clear to auscultation. No respiratory distress. HEART: Regular rate and rhythm. No murmur heard. Normal peripheral pulses. ABDOMEN: Normoactive bowel sounds. Abdomen soft with tenderness in the right lower quadrant involuntary guarding. Positive psoas and obturator's sign. Negative Rovsing's sign. Dexcom an insulin pump in the left lower quadrant EXTREMITIES: Normal range of motion. No edema. SKIN: Warm, dry, no rash. NEURO: No focal deficits. Alert and oriented x3 <Sheila Kramer PA-C - Last Filed: 01/25/25 03:36> Course MANAGER FOOD/PA Physician Supervision Patient signed out to me pending uS to r/o ovarian torsion. Had been given a PO medication and then felt like it was stuck in throat causing brief shortness of breath and vomiting/dry heaving. US negative for acute process. paitent feeling a bit better on reassessment. In sum, This patient presents with abdominal pain or unclear etiology. A CT scan was performed to evaluate for potential causes of the abdominal pain, however, neither the clinical exam nor the CT has identified an emergent etiology for the abdominal pain. Specifically, given the benign exam, the laboratory studies, and unremarkable CT, I have a very low suspicion for appendicitis, ischemic bowel, bowel perforation, or any other life threatening disease. I have discussed with the patient the level of uncertainty with undifferentiated abdominal pain and clearly explained the need to follow-up as noted on the discharge instructions, or return to the Emergency Department immediately if the pain worsens, develops fever, persistent and uncontrolled vomiting, or for any new symptoms or concerns. Prescribed Bentyl, omeprazole for hiatal hernia. Also given a one time dose for presumed yeast infection based on the symptoms she describes. Another dose for 72 hours from now also provided if symptoms have not abated. <Tammie Hogan MD - Last Filed: 01/30/25 19:01> Vital Signs Vital signs: Vital Signs Temperature 97.9 F 01/24/25 21:37 Pulse Rate 107 H 01/24/25 21:37 Respiratory Rate 20 01/24/25 21:37 Blood Pressure 118/91 H 01/24/25 21:37 Pulse Oximetry 100 01/24/25 21:37 Oxygen Delivery Room Air 01/24/25 21:37 Temperature 97.9 F 01/24/25 21:37 Pulse Rate 107 H 01/24/25 21:37 Respiratory Rate 20 01/24/25 21:37 Blood Pressure 118/91 H 01/24/25 21:37 Pulse Oximetry 100 01/24/25 21:37 Oxygen Delivery Room Air 01/24/25 21:37 <Sheila Kramer PA-C - Last Filed: 01/25/25 03:36> Vital Signs Temperature 97.9 F 01/24/25 21:37 Pulse Rate 107 H 01/24/25 21:37 Respiratory Rate 20 01/24/25 21:37 Blood Pressure 118/91 H 01/24/25 21:37 Pulse Oximetry 100 01/24/25 21:37 Oxygen Delivery Room Air 01/24/25 21:37 Temperature 97.9 F 01/24/25 21:37 Pulse Rate 107 H 01/24/25 21:37 Respiratory Rate 20 01/24/25 21:37 Blood Pressure 118/91 H 01/24/25 21:37 Pulse Oximetry 100 01/24/25 21:37 Oxygen Delivery Room Air 01/24/25 21:37 <Tammie Hogan MD - Last Filed: 01/30/25 19:01> MDM - Abdominal Pain MDM Narrative Medical decision making narrative: 49-year-old female history of insulin-dependent diabetes, RA, hyperlipidemia, hypertension presents to emergency department for right lower quadrant abdominal pain, N/V/D for 3 days. See HPI for further history. Triage vitals with tachycardia 107, otherwise unremarkable. Patient is afebrile and nontoxic appearing. Exam is notable for the above. Patient's EKG shows sinus rhythm with rate of 87 ppm, normal [place] interval, normal QRS duration, normal QTC, no ST elevations or depressions. CBC with leukocytosis of 11.4, no anemia. Chemistries with hyperglycemia of 221, normal bicarb and anion gap. Patient does have chronic transaminitis which is largely unchanged from baseline. Bilirubin and alk-phos are within normal limits. Urinalysis with glucosuria and trace ketones, no UTI. Lipase normal. CT abdomen pelvis shows no acute findings. Patient re-evaluated and is now tearful, states her pain has worsened despite fluids, Zofran and morphine. Will provide IV Dilaudid and Bentyl and order transvaginal ultrasound to evaluate for ovarian torsion. Pending ultrasound times Dr. Hogan. <Sheila Kramer PA-C - Last Filed: 01/25/25 03:36> Lab Data Result diagrams: 01/25/25 00:32 01/25/25 00:32 <Sheila Kramer PA-C - Last Filed: 01/25/25 03:36> Labs: Lab Results 01/25/25 01/25/25 01/25/25 Range/Units 00:32 00:35 01:21 WBC 11.4 H (4.5-10.0) K/mm3 RBC 4.31 (4.2-5.4) M/mm3 Hgb 14.3 (12.0-15.0) g/dL Hct 41.3 (37.0-47.0) % MCV 95.8 (80-100) fl MCH 33.2 (26-34) pg MCHC 34.6 (32-36) g/dl RDW 11.9 (11.5-14.5) % Plt Count 274 (150-375) k/mm3 MPV 10.1 (7.4-10.4) fl Immature Gran % (Auto) 0.3 (0-0.5) % Neut % (Auto) 47.9 (45.5-73.1) % Lymph % (Auto) 39.8 (18.3-44.2) % [place] % (Auto) 7.1 (2.6-8.5) % Eos % (Auto) 4.4 (0-4.4) % Baso % (Auto) 0.5 (0.2-1.2) % Lymph # (Auto) 4.52 H (0.9-3.2) K/mm3 [place] # (Auto) 0.8 H (0.1-0.6) K/mm3 Eos # (Auto) 0.5 H (0-0.3) K/mm3 Baso # (Auto) 0.1 (0.0-0.1) K/mm3 Abs Immat Gran (auto) 0.03 (0.00-0.031) K/mm3 Absolute Neuts (auto) 5.4 (1.3-6.7) K/mm3 Absolute Nucleated RBC 0.000 (0.0-0.012) K/mm3 Nucleated RBC % 0.0 (0.0-0.2) % Sodium 135 L (137-145) mmol/L Potassium 3.8 (3.4-5.0) mmol/L Chloride 105 (98-107) mmol/L Carbon Dioxide 22 (22-30) mmol/L Anion Gap 8 (4-12) mmol/L BUN 15 (7-17) mg/dL Creatinine 0.69 L (0.7-1.0) mg/dL Estim Creat Clear Calc 92 ml/min Estimated GFR > 60 (59 - ) Glucose 221 H (65-110) mg/dL Calcium 9.0 (8.4-10.2) mg/dL Total Bilirubin 0.8 (0.2-1.3) mg/dL AST 95 H (14-36) U/L ALT 110 H (6-35) U/L Alkaline Phosphatase 106 (38-126) U/L Total Protein 8.8 H (6.3-8.2) g/dL Albumin 4.4 (3.5-5.1) g/dL Lipase 55 (23-300) U/L Urine Color Yellow (Yellow) Urine Appearance Clear (Clear) Urine pH 5.5 (5.0-9.0) Ur Specific [place] 1.030 (1.001-1.035) Urine Protein Trace (Negative) mg/dL Urine Glucose (UA) 2+ H (Negative) mg/dL Urine Ketones Trace H (Negative) mg/dL Ur Blood (Man) Negative (Negative) Urine Nitrate Negative (Negative) Urine Bilirubin Negative (Negative) Urine Urobilinogen 1.0 (<2.0) mg/dL Leukocyte Esterase Rfl Negative (Negative) JR/UL Urine RBC 0-2 (0-2) /hpf Urine WBC 0-5 (0-3) /hpf Ur Squamous Epith Cells Occasional (Few) /hpf Urine Bacteria None seen /hpf Urine Casts 0-2 POC Urine HCG, Qual Negative (Negative) <Sheila Kramer PA-C - Last Filed: 01/25/25 03:36> Lab Results 01/25/25 01/25/25 01/25/25 Range/Units 00:32 00:35 01:21 WBC 11.4 H (4.5-10.0) K/mm3 RBC 4.31 (4.2-5.4) M/mm3 Hgb 14.3 (12.0-15.0) g/dL Hct 41.3 (37.0-47.0) % MCV 95.8 (80-100) fl MCH 33.2 (26-34) pg MCHC 34.6 (32-36) g/dl RDW 11.9 (11.5-14.5) % Plt Count 274 (150-375) k/mm3 MPV 10.1 (7.4-10.4) fl Immature Gran % (Auto) 0.3 (0-0.5) % Neut % (Auto) 47.9 (45.5-73.1) % Lymph % (Auto) 39.8 (18.3-44.2) % [place] % (Auto) 7.1 (2.6-8.5) % Eos % (Auto) 4.4 (0-4.4) % Baso % (Auto) 0.5 (0.2-1.2) % Lymph # (Auto) 4.52 H (0.9-3.2) K/mm3 [place] # (Auto) 0.8 H (0.1-0.6) K/mm3 Eos # (Auto) 0.5 H (0-0.3) K/mm3 Baso # (Auto) 0.1 (0.0-0.1) K/mm3 Abs Immat Gran (auto) 0.03 (0.00-0.031) K/mm3 Absolute Neuts (auto) 5.4 (1.3-6.7) K/mm3 Absolute Nucleated RBC 0.000 (0.0-0.012) K/mm3 Nucleated RBC % 0.0 (0.0-0.2) % Sodium 135 L (137-145) mmol/L Potassium 3.8 (3.4-5.0) mmol/L Chloride 105 (98-107) mmol/L Carbon Dioxide 22 (22-30) mmol/L Anion Gap 8 (4-12) mmol/L BUN 15 (7-17) mg/dL Creatinine 0.69 L (0.7-1.0) mg/dL Estim Creat Clear Calc 92 ml/min Estimated GFR > 60 (59 - ) Glucose 221 H (65-110) mg/dL Calcium 9.0 (8.4-10.2) mg/dL Total Bilirubin 0.8 (0.2-1.3) mg/dL AST 95 H (14-36) U/L ALT 110 H (6-35) U/L Alkaline Phosphatase 106 (38-126) U/L Total Protein 8.8 H (6.3-8.2) g/dL Albumin 4.4 (3.5-5.1) g/dL Lipase 55 (23-300) U/L Urine Color Yellow (Yellow) Urine Appearance Clear (Clear) Urine pH 5.5 (5.0-9.0) Ur Specific [place] 1.030 (1.001-1.035) Urine Protein Trace (Negative) mg/dL Urine Glucose (UA) 2+ H (Negative) mg/dL Urine Ketones Trace H (Negative) mg/dL Ur Blood (Man) Negative (Negative) Urine Nitrate Negative (Negative) Urine Bilirubin Negative (Negative) Urine Urobilinogen 1.0 (<2.0) mg/dL Leukocyte Esterase Rfl Negative (Negative) JR/UL Urine RBC 0-2 (0-2) /hpf Urine WBC 0-5 (0-3) /hpf Ur Squamous Epith Cells Occasional (Few) /hpf Urine Bacteria None seen /hpf Urine Casts 0-2 POC Urine HCG, Qual Negative (Negative) <Tammie Hogan MD - Last Filed: 01/30/25 19:01> Imaging Data Radiologist's impression: ITS Impressions Abdomen/Pelvis CT 01/25/25 05:34 Impression: Diffuse hepatic steatosis. Moderate hiatal hernia. Pelvis Ultrasound 01/25/25 05:50 Impression: Uterus and right ovary are not clearly visualized. Left ovary grossly unremarkable, though suboptimally seen. <Sheila Kramer PA-C - Last Filed: 01/25/25 03:36> ITS Impressions Abdomen/Pelvis CT 01/25/25 05:34 Impression: Diffuse hepatic steatosis. Moderate hiatal hernia. Pelvis Ultrasound 01/25/25 05:50 Impression: Uterus and right ovary are not clearly visualized. Left ovary grossly unremarkable, though suboptimally seen. US Pelvis Stat Rad: Severe is a [sic] limited evaluation with no gross abnormalities visualized. <Tammie Hogan MD - Last Filed: 01/30/25 19:01> Discharge Plan Discharge Clinical Impression: Hepatic steatosis, Hiatal hernia, Abdominal pain <Sheila Kramer PA-C - Last Filed: 01/25/25 03:36> Patient Disposition: Home <Sheila Kramer PA-C - Last Filed: 01/25/25 03:36> Condition: Stable <DOUGLAS Whitten Last Filed: 01/25/25 03:36> Instructions: Antibiotic Form, Hiatal Hernia (DC), Non-Alcoholic Fatty Liver Disease (ED), Abdominal Pain (ED) <Sheila Kramer PA-C - Last Filed: 01/25/25 03:36> Additional Instructions: The initial CT scan was read by an offsite company. The [place] radiologist read your CT as showing fatty liver (hepatic steatosis) and hiatal hernia. NEither of these explain your symptoms although the prescribed medication may help with some pain above your bellybutton or reflux if you experience that. The dicyclomine/Bentyl works on the smooth muscle of your GI tract. Follow-up with your primary care provider. Return to the Emergency Department immediately if the pain worsens, develops fever, persistent and uncontrolled vomiting, or for any new symptoms or concerns. Given your concern yeast infection, your given the 1st dose to treat this. If you continue to have symptoms in 72 hours, you can take the 2nd dose (paper prescription) <Sheila Kramer PA-C - Last Filed: 01/25/25 03:36> Patient Language: Argentine <Sheila Kramer PA-C - Last Filed: 01/25/25 03:36> Prescriptions: New omeprazole 20 mg tablet,delayed release (DR/EC) 20 mg PO DAILY Qty: 14 0RF dicyclomine 10 mg capsule 10 mg PO BID PRN (Reason: abdominal pain) Qty: 20 0RF fluconazole 150 mg tablet 150 mg PO ONCE Qty: 1 0RF Rx Instructions: as a single dose if still having symptoms 72 hours from 01/25/25 at 6am No Action (DME) lancets [TRUEplus Lancets] 33 gauge misc See Rx Instructions .ROUTE .MEDSUPPLY Qty: 100 0RF Rx Instructions: use to check bs 1-2 daily E11.9 (DME) lancets [Microlet Lancet] Misc See Rx Instructions .ROUTE .MEDSUPPLY Qty: 50 Rx Instructions: As directed prednisone 5 mg tablet 10 mg PO DAILY Ozempic 1 mg/dose (2 mg/1.5 mL) pen injector 1 mg SUB-Q WEEKLY Qty: 3 3RF Rx Instructions: THURSDAY Novolog U-100 Insulin aspart 100 unit/mL solution See Rx Instructions continuous subcutaneous infusion DAILY Qty: 20 3RF Rx Instructions: inject up to 85u daily via insulin pump/ CHANGE EVERY THREE DAYS atorvastatin 80 mg tablet 80 mg PO DAILY Qty: 90 1RF losartan 25 mg tablet 25 mg PO DAILY Qty: 90 1RF famotidine [Acid Field Artillery Officer (famotidine)] 20 mg tablet 20 mg PO DAILY Qty: 90 1RF cetirizine [Zyrtec] 10 mg tablet 10 mg PO DAILY Qty: 90 1RF citalopram 40 mg tablet 40 mg PO DAILY Qty: 90 1RF pregabalin [Lyrica] 150 mg capsule 150 mg PO BID Qty: 180 3RF <Sheila Kramer PA-C - Last Filed: 01/25/25 03:36> Follow-up/Referrals: Jacquelyn Syed, MANAGER FOOD [Advanced Practice Nurse] - Devin Arredondo DO [Primary Care Provider] - <Sheila Kramer PA-C - Last Filed: 01/25/25 03:36> Stand Alone Forms: Work/School Release IP <Sheila Kramer PA-C - Last Filed: 01/25/25 03:36> Time of Disposition: 06:02 <Sheila Kramer PA-C - Last Filed: 01/25/25 03:36> 06:02 <Tammie Hogan MD - Last Filed: 01/30/25 19:01>
--- NOTE | 2025-01-25 02:58 | PC.NURSE ---
pt refused to put on a heart montior or BP said wanted to see Dr nuñez
[2025-01-25] MEDS: HYDROmorphone HCL INJ (*CRX) 2 MG/ML VIAL 0.5 MG IV PUSH (03:44)
[2025-01-25] MEDS: DICYCLOMINE HCL 10 MG CAPSULE PO (03:52)
[2025-01-25] MEDS: METOCLOPRAMIDE HCL INJ 10 MG/2 ML VIAL IV PUSH (04:54)
[2025-01-25] MEDS: FAMOTIDINE 20 MG/2 ML VIAL IV PUSH (04:55)
[2025-01-25] MEDS: SODIUM CHLORIDE 0.9% IV 100 ML 999 ML ×2 (04:55→06:22)
[2025-01-25] MEDS: FLUCONAZOLE 150 MG TABLET PO (06:21)
== END 2025-01-25 06:42 | disposition home or self-care (01) ==
PROVIDERS: Physician Assistant; Emergency Provider Student in an Organized Health Care Education/Training Program; PCP Internal Medicine
DX: R10.31 Right lower quadrant pain (principal); K76.0 Fatty (change of) liver, not elsewhere classified; K44.9 Diaphragmatic hernia without obstruction or gangrene; M06.9 Rheumatoid arthritis, unspecified; I10 Essential (primary) hypertension; E78.2 Mixed hyperlipidemia; E11.40 Type 2 diabetes mellitus with diabetic neuropathy, unspecified; G47.33 Obstructive sleep apnea (adult) (pediatric); Z87.891 Personal history of nicotine dependence; Z79.85 Long-term (current) use of injectable non-insulin antidiabetic drugs; Z79.899 Other long term (current) drug therapy; Z79.4 Long term (current) use of insulin; Z79.620 Long term (current) use of immunosuppressive biologic; R94.31 Abnormal electrocardiogram [ECG] [EKG]
CPT/HCPCS: 36415; 74177; 76856; 80053; 81001; 81025; 83690; 85025; 93005; 96361; 96374; 96375; 99284; A9270; J1171; J1200; J2270; J2405; J2765; J7030; Q9967

== ENCOUNTER 2025-03-02 22:07 | Emergency (ER) | payer MEDICARE, MEDICAID, SELFPAY ==
[2025-03-02 22:17] VITALS: BP 127/75; PULSE 129; RESP 14; TEMP 36.4; O2SAT 99
[2025-03-03] VITALS (10 sets, daily range): BP systolic 138; BP diastolic 90; PULSE 90–106; RESP 12–21; O2SAT 92–100
--- NOTE | 2025-03-03 01:35 | ED.GENADULT ---
HPI - General Adult General Chief complaint: Unspecified Stated complaint: back pain Time Seen by Provider: 03/03/25 02:13 History of Present Illness HPI narrative: This is a 49-year-old female history of rheumatoid arthritis presenting for total body pain. Patient says the pain there has pain from her head to her toes. There is no focal area. She says this feels similar to a previous rheumatoid arthritis flares in the past. She has use Motrin Tylenol throughout the day but is not been helping. No fevers chills chest pain difficulty breathing abdominal pain or urinary symptoms. Related Data Home Medications ?Medication ?Instructions ?Recorded ?Confirmed ?Last Taken ?Type lancets (Microlet Lancet) #50 ea 05/11/19 05/18/24 Unknown History prednisone 5 mg tablet 10 mg PO DAILY 05/18/24 05/18/24 Unknown History Allergies Allergy/AdvReac Type Severity Reaction Status Date / Time No Known Allergies Allergy Unknown Verified 03/02/25 22:21 [facility] Past Medical History Medical History Obesity Hepatic steatosis Neuropathy Leukocytosis Excessive daytime sleepiness Abnormal mammogram Migraine headache Heartburn HTN (hypertension) COLETTE (obstructive sleep apnea) Rheumatoid arthritis Mixed hyperlipidemia Type 2 diabetes mellitus without complication, 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 Surgical History Surgical History History of tonsillectomy and adenoidectomy Family History Family History Mother Diabetes mellitus Social History Social History Social History: Caffeine-daily Smoking packs per day: 0.25 Smoking cigarettes per day: 5.0 Years smoked: 34 Smoking pack-years: 8.50 Smoking status: Former smoker Tobacco type: e-cigarettes/vaping Additional smoking assessment comments: stopped 05/2022, started again then stopped, smoke free 3 months 12/24/22 Alcohol intake: current Alcohol use details: 2 PER YEAR Substance use: never Substance use type: does not use Do You Feel Safe in your Home?: Yes Lack of Transportation: No Lack of Food: Never True Current Housing: Decline to Answer Concerned About Future Housing: No Difficulty Paying Gas/Electric Bills: No Difficulty Paying for Meds: No Currently Unemployed: Decline to Answer Education: Master's Degree or Higher Difficulty w/ Childcare or Family Care: No Living arrangements: with family Spiritual care concerns: No Exam Narrative: APPEARANCE: No apparent distress. Patient flinches when you touch her just about anywhere on her entire body. Head: atraumatic. EYES: EOMI, NOSE: Atraumatic NECK: Trachea midline RESPIRATORY: No increased rate of breathing clear to auscultation CARDIOVASCULAR: RRR, no peripheral edema ABDOMINAL: Non-distended soft nontender MUSCULOSKELETAl: No obvious deformities NEURO: Alert. Moving 4/4 extremities SKIN:: Warm, dry. Normal color PSYCHIATRIC: Normal affect Course Vital Signs Vital signs: Vital Signs Temperature 97.6 F 03/02/25 22:17 Pulse Rate 129 H 03/02/25 22:17 Respiratory Rate 14 03/02/25 22:17 Blood Pressure 127/75 03/02/25 22:17 Pulse Oximetry 99 03/02/25 22:17 Oxygen Delivery Room Air 03/02/25 22:17 Temperature 97.6 F 03/02/25 22:17 Pulse Rate 104 H 03/03/25 01:26 Respiratory Rate 16 03/03/25 01:26 Blood Pressure 127/75 03/02/25 22:17 Pulse Oximetry 100 03/03/25 01:26 Oxygen Delivery Room Air 03/03/25 01:26 Medical Decision Making MDM Narrative Medical decision making narrative: -Course: 49-year-old female with rheumatoid arthritis presenting with total body pain. No other focal findings on history or physical. Given pain medication and steroids. On re-evaluation she is sleeping comfortably in bed. She is ready for discharge. -DDX includes but is not limited to: Rheumatoid arthritis, fibromyalgia Vital Signs Vital Signs: Vital Signs Temperature 97.6 F 03/02/25 22:17 Pulse Rate 129 H 03/02/25 22:17 Respiratory Rate 14 03/02/25 22:17 Blood Pressure 127/75 03/02/25 22:17 Pulse Oximetry 99 03/02/25 22:17 Oxygen Delivery Room Air 03/02/25 22:17 Temperature 97.6 F 03/02/25 22:17 Pulse Rate 104 H 03/03/25 01:26 Respiratory Rate 16 03/03/25 01:26 Blood Pressure 127/75 03/02/25 22:17 Pulse Oximetry 100 03/03/25 01:26 Oxygen Delivery Room Air 03/03/25 01:26 Discharge Plan Discharge Clinical Impression: Total body pain Patient Disposition: Home Condition: Stable Instructions: Antibiotic Form, Pain Management (ED) Additional Instructions: You were seen ED for total body pain. Please follow-up with your primary care physician or county program technician for further management. Return to ED if you develop severe pain or any new symptoms. Use Motrin Tylenol as needed for pain. Patient Language: Bengali Prescriptions: No Action (DME) lancets [TRUEplus Lancets] 33 gauge misc See Rx Instructions .ROUTE .MEDSUPPLY Qty: 100 0RF Rx Instructions: use to check bs 1-2 daily E11.9 (DME) lancets [Microlet Lancet] [facility] [place] Rx Instructions .ROUTE .MEDSUPPLY Qty: 50 Rx Instructions: As directed prednisone 5 mg tablet 10 mg PO DAILY omeprazole 20 mg tablet,delayed release (DR/EC) 20 mg PO DAILY Qty: 14 0RF dicyclomine 10 mg capsule 10 mg PO BID PRN (Reason: abdominal pain) Qty: 20 0RF fluconazole 150 mg tablet 150 mg PO ONCE Qty: 1 0RF Rx Instructions: as a single dose if still having symptoms 72 hours from 01/25/25 at 6am Ozempic 1 mg/dose (2 mg/1.5 mL) pen injector 1 mg SUB-Q WEEKLY Qty: 3 3RF Rx Instructions: THURSDAY Novolog U-100 Insulin aspart 100 unit/mL solution See Rx Instructions continuous subcutaneous infusion DAILY Qty: 20 3RF Rx Instructions: inject up to 85u daily via insulin pump/ CHANGE EVERY THREE DAYS atorvastatin 80 mg tablet 80 mg PO DAILY Qty: 90 1RF losartan 25 mg tablet 25 mg PO DAILY Qty: 90 1RF famotidine [Acid Tenter Frame Back Tender (famotidine)] 20 mg tablet 20 mg PO DAILY Qty: 90 1RF cetirizine [Zyrtec] 10 mg tablet 10 mg PO DAILY Qty: 90 1RF pregabalin [Lyrica] 150 mg capsule 150 mg PO BID Qty: 180 3RF citalopram 40 mg tablet 40 mg PO DAILY Qty: 90 0RF Rx Instructions: NEEDS APPOINTMENT FOR FURTHER REFILLS Follow-up/Referrals: Devin Arredondo, DO [Primary Care Provider, Internal Medicine]
[2025-03-03] MEDS: HYDROmorphone HCL INJ (*CRX) 1 MG/ML SYR 0.5 MG IV PUSH (02:06)
[2025-03-03] MEDS: KETOROLAC 30 MG/ML VIAL (*BKC) IM (02:08)
[2025-03-03] MEDS: ACETAMINOPHEN 500 MG TABLET 1000 MG PO (02:11)
[2025-03-03] MEDS: dexAMETHasone SOD PHOS INJ 10 MG/ML 1 ML VIAL IV PUSH (02:19)
--- OUTSIDE RECORDS SUMMARY | 2025-03-03 02:38 | XMS_ITS | Encounter Summary ---
Author Organization [facility] Address [address] [place] [address] Phone Care Team Providers Care Technical Specialist Cytology Name Role Phone Devin Arredondo DO Primary Care Provider [phone] Encounter Details Date Type Department Care Team (Latest Contact Info) Description 04/02/2020 Orders Only [facility] EML Scanning, Provider Social History Tobacco Use Types Packs/Day Years Used Date Smoking Tobacco: Never Assessed Comments Unknown Sex and Gender Information Value Date Recorded Sex Assigned at Not on file 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
--- OUTSIDE RECORDS SUMMARY | 2025-03-03 02:38 | XMS_ITS | Encounter Summary ---
Author Organization [facility] Address [address] [place] [address] Phone Care Team Providers Care Procurement Representative Name Role Phone Devin Arredondo DO Primary Care Provider [phone] Encounter Details Date Type Department Care Team (Latest Contact Info) Description 04/10/2020 Orders Only [facility] EML Scanning, Provider Social History Tobacco Use Types Packs/Day Years Used Date Smoking Tobacco: Never Assessed Comments Unknown Sex and Gender Information Value Date Recorded Sex Assigned at Not on file 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
[2025-03-03] MEDS: ONDANSETRON INJ 4 MG/2 ML VIAL IV PUSH (02:50)
== END 2025-03-03 04:23 | disposition home or self-care (01) ==
PROVIDERS: Emergency Provider Emergency Medicine; PCP Internal Medicine
DX: R52 Pain, unspecified (principal); M06.9 Rheumatoid arthritis, unspecified; I10 Essential (primary) hypertension; E78.2 Mixed hyperlipidemia; E11.9 Type 2 diabetes mellitus without complications; Z87.891 Personal history of nicotine dependence
CPT/HCPCS: 96372; 96374; 96375; 99284; A9270; J1100; J1171; J1885; J2405